=== PATIENT | male | born 1955 | race Two or more races ===

== ENCOUNTER 2024-03-26 14:45 | Outpatient (REF) | payer MEDICAID, SELFPAY ==
--- NOTE | ~2024-03-26 | XR_ITS ---
EXAMINATION: XR ANKLE, LEFT CLINICAL INFORMATION: Injury left ankle COMPARISON: None available. TECHNIQUE: 4 views of the left ankle. FINDINGS: Lateral ankle soft tissue swelling. There are lucencies, with bony irregularity and cortical offset of the lateral malleolus, suspicious for a mildly displaced fracture. No fracture of the distal tibia. Ankle mortise appears within normal limits. Anterior calcaneal process, fifth metatarsal base appears intact. Tibiotalar joint effusion present. XR/XR ankle LT min 3V IMPRESSION: Mildly displaced lateral malleolar fracture. Tibiotalar joint effusion. Lateral ankle soft tissue swelling.
== END 2024-03-26 14:46 | disposition home or self-care (01) ==
LOC: HO.HHCX 14:45
PROVIDERS: Visit Provider Nurse Practitioner Family
DX: S99.912A Unspecified injury of left ankle, initial encounter (principal)
CPT/HCPCS: 73610

== ENCOUNTER 2024-05-12 12:01 | Outpatient (REF) | payer MEDICAID, SELFPAY | END 2024-05-12 12:02 | disposition home or self-care (01) | LOC: HO.HOSX 12:01 | PROVIDERS: Visit Provider Physician Assistant | DX: Z13.89 Encounter for screening for other disorder (principal) ==

== ENCOUNTER 2024-07-01 13:12 | Outpatient (REF) | payer MEDICAID, SELFPAY ==
[2024-07-04 09:39] LABS: TS Negative Control Passed; TS Panel A 67; TS Panel B 208; TS Positive Control Passed; TSpotTB Positive (Negative)
== END 2024-07-01 13:13 | disposition home or self-care (01) ==
LOC: HO.HHCL 13:12
PROVIDERS: Visit Provider Internal Medicine
DX: Z00.00 Encounter for general adult medical examination without abnormal findings (principal)
CPT/HCPCS: 36415; 86481

== ENCOUNTER 2024-07-04 12:53 | Outpatient (REF) | payer MEDICAID, SELFPAY ==
[2024-07-04 16:21] LABS: MANUAL DIFF FLAG NO
[2024-07-04 16:39] LABS: Basophils Absolute Auto 0.1 X10*3/uL (0.0-0.2); Basophils Percent Auto 0.9 % (0-2); Eosinophils Absolute Auto 0.3 X10*3/uL (0.0-0.4); Eosinophils Percent Auto 3.4 % (0-4); Hemoglobin 13.2 g/dl (14.0-18.0); Imm Gran Abs Auto 0.01 X10*3/uL (0.00-0.03); Imm Gran Pct Auto 0.1 % (0.0-0.4); Lymphocytes Absolute Auto 1.6 X10*3/uL (1.2-4.9); Mean Corpuscular HGB Conc 31.4 g/dl (31.0-36.0); Mean Corpuscular Hemoglobin 28.8 pg (27.0-33.0); Mean Corpuscular Volume 91.5 fL (80.0-98.0); Mean Platelet Volume 10.8 fL (9.4-12.4); Monocytes Absolute Auto 0.7 X10*3/uL (0.1-1.2); Monocytes Percent Auto 9.9 % (2-11); Neutrophils Absolute Auto 4.8 x10*3/uL (2.0-8.3); Neutrophils Percent Auto 64.7 % (45-73); Platelet Count 226 X10*3/uL (160-400); Red Blood Count 4.59 X10*6/uL (4.60-5.80); Red Cell Distribution Width 14.6 % (11.0-16.0); White Blood Count 7.4 X10*3/uL (4.8-10.8)
[2024-07-04 17:23] LABS: Alanine Aminotransferase 13 U/L (0-40); Albumin Level 3.7 g/dL (3.5-5.0); Alkaline Phosphatase 83 U/L (39-117); Anion Gap 13 (12-20); Aspartate Amino Transferase 17 U/L (5-37); Bilirubin Total 0.3 mg/dL (0.0-1.0); Blood Urea Nitrogen 12 mg/dL (9-16); Calcium 9.2 mg/dL (8.4-10.2); Carbon Dioxide 24 mmol/L (22-29); Chloride 107 mmol/L (96-108); Cholesterol 230 mg/dL (<200); Estimated Glomerular Filt Rate > 60; Glucose Random 79 mg/dL (60-115); HDL Cholesterol 49 mg/dL (>40); LDL Cholesterol Calculated 157 mg/dL (<100); Potassium 4.3 mmol/L (3.3-5.1); Sodium 140 mmol/L (135-145); Total Protein 7.2 g/dL (6.5-8.0); Triglycerides 124 mg/dL (<150)
[2024-07-04 17:32] LABS: TSH reflex Free T4 0.53 uIU/mL (0.32-4.0); Vitamin D 25-OH Total 27.4 ng/mL (>30)
[2024-07-04 18:10] LABS: Reflex LDLD? No
[2024-07-04 18:12] LABS: Syphilis Screen Reactive (Nonreactive)
[2024-07-04 18:22] LABS: HBc Num1 5.99 S/CO (0.00-0.79); HBsAGNum1 0.29 S/CO (0.00-0.99); HIV AB/AG Nonreactive (Nonreactive); HIV Num 1 0.05 S/CO (0.00-0.99); Hepatitis A Antibody IgM 0.14 Index (0-0.79); Hepatitis B Surface Antigen Negative (Negative); ~HepC Num1 0.18 S/CO (0.00-0.79); ~Hepatitis A Antibody IgM Nonreactive (Nonreactive); ~Hepatitis B Surface Antibody REACTIVE (Nonreactive); ~Hepatitis C Antibody Nonreactive (Nonreactive)
[2024-07-07 04:09] LABS: HBc Num2 5.75 S/CO; HBc Num3 5.93 S/CO; Hepatitis B Core Antibody Reactive (Nonreactive)
[2024-07-07 15:19] LABS: Rubella IgG Antibody 5.19 Index
[2024-07-11 11:55] LABS: RPR Quantitative Reactive 1:2 (Nonreactive); T.Pallidum Particle Agg Test Reactive (Nonreactive)
== END 2024-07-04 12:54 | disposition home or self-care (01) ==
LOC: HO.HHCL 12:53
PROVIDERS: Visit Provider Internal Medicine
DX: Z00.00 Encounter for general adult medical examination without abnormal findings (principal); I10 Essential (primary) hypertension
CPT/HCPCS: 36415; 80053; 80061; 82306; 84443; 85025; 86592; 86704; 86706; 86709; 86735; 86762; 86765; 86780; 86803; 87340; 87389

== ENCOUNTER 2024-07-17 13:45 | Outpatient (REF) | payer MEDICAID, SELFPAY ==
--- NOTE | ~2024-07-17 | XR_ITS ---
EXAMINATION: XR CHEST CLINICAL INFORMATION: Positive TB test, asymptomatic COMPARISON: None available. TECHNIQUE: 2 views of the chest were obtained. FINDINGS: The aorta is ectatic and unfolded. There is an old healed fracture of the right posterior fourth rib. Otherwise, no significant abnormality is noted involving the heart, lungs, mediastinum, bony thorax or soft tissues. XR/XR chest 2V IMPRESSION: No evidence of active pulmonary disease. Electronically signed by: Aba Pierce MD 07/17/2024 03:02 PM EDT RP
== END 2024-07-17 13:46 | disposition home or self-care (01) ==
LOC: HO.HHCX 13:45
PROVIDERS: Visit Provider Internal Medicine
DX: R76.11 Nonspecific reaction to tuberculin skin test without active tuberculosis (principal)
CPT/HCPCS: 71046

== ENCOUNTER 2024-12-09 15:26 | Outpatient (REF) | payer MEDICAID, SELFPAY ==
--- NOTE | ~2024-12-09 | XR_ITS ---
EXAMINATION: XR KNEE, LEFT CLINICAL INFORMATION: sp fall/knee edema/pain COMPARISON: None available. TECHNIQUE: Four views of the left knee. FINDINGS: No fracture, dislocation, or suspicious bone lesion. Normal bone mineralization. Normal alignment. There is chondrocalcinosis in the joint compartments. Findings suggest CPPD. There is moderate medial and mild lateral and patellofemoral joint space narrowing, with marginal productive osteophytes. There is irregularity and sclerosis of the articular surface of the femoral condyles and medial tibial plateau. There is spurring of the tibial spines. There are productive posterior osteophytes and possible loose bodies in the posterior joint space. Large suprapatellar joint effusion. Soft tissues appear normal. XR/XR knee LT 4V IMPRESSION: 1. No acute bony abnormality. 2. 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 Possible posterior loose bodies. 3. Chondrocalcinosis suggesting CPPD. 4. Large joint effusion. Electronically signed by: Jorge Carney MD 12/09/2024 04:19 PM [facility]IGGINS
--- OUTSIDE RECORDS SUMMARY | 2024-12-09 19:14 | XMS_ITS | Encounter Summary ---
Author Organization [employer] Address [address] [place] [address] [address] [place] [address] Care Team Providers Care Director External Communications Name Role Phone Marta Johnson MD Primary Care Provider + Encounter Details Date Type Department Care Team (Late st Contact Info) Description 03/28/2024 Orders Only [facility] [address] [place], [place] [phone] Greer Chiang FNP [address] [place], [place] [phone] Social History Tobacco Use Types Packs/Day Years Used Date Smoking Tobacco: Never Smokeless Tobacco: Never Sex and Gender Information Value Date Recorded Sex Assigned at Male 01/09/2024 3:57 PM EDT Legal Sex Male 3:36 PM EST Gender Identity Male 01/09/2024 3:57 PM EDT Sexual Orientation Straight 01/09/2024 3: 57 PM EDT documented as of this encounter Plan of Treatment Not on file documented as of this encounter Visit Diagnoses Not on filedocumented in this encounter Care Teams Director External Communications Relationship Specialty Start Date End Date Marta Johnson MD [address] [place] [address] PCP - General Internal Medicine 06/27/24 documented as of this encounter
--- OUTSIDE RECORDS SUMMARY | 2024-12-09 19:14 | XMS_ITS | Encounter Summary ---
Author Organization [employer] Address [address] [facility] [address] [place] [address] Care Team Providers Care [employer] Name Role Phone Marta Johnson MD Primary Care Provider + Encounter Details Date Type Department Care Team (Late st Contact Info) Description 11/26/2024 Telephone [facility] [address] [place], [place] [phone] Marta Johnson MD [address] [place], [place] [phone] Social History Tobacco Use Types Packs/Day Years Used Date Smoking Tobacco: Every Day Cigarettes Passive Smoke Exposure: Never Smokeless Tobacco: Never Alcohol Use Standard Drinks/Week Comments Yes 0 (1 standard drink = 0.6 oz pur e alcohol) oca Depression Answer Date Recorded Patient Health Questionnaire-9 Score 18 09/10/2024 Patient Health Questionnaire-9 Score 18 09/10/2024 Last PHQ-9: Questionnaire Data Not on file 1 11/10/2023 Depression Answer Date Recorded Patient Health Questionnaire-2 Score 6 09/10/2024 Sex and Gender Information Value Date Recorded Sex Assigned at Male 01/09/2024 3:57 PM EDT Legal Sex Male 3:36 PM EST Gender Identity Male 01/09/2024 3:57 PM EDT Sexual Orientation Straight 01/09/2024 3: 57 PM EDT documented as of this encounter Miscellaneous Notes * Telephone Encounter - Chantelle Cerda RN - 11/26/2024 9:20 AM EST Tc to pt to let them know per PCP CT scan of abdomen and pelvis on 11/16/2024 during hospitalization for CHF, showed 5 cm infrarenal AAA, he was referred to vascular surgery. Please call patient and make sure that he has cardiology and vascular surgery referral information and make sure that he follows up with me later this month. . No answer, lvm to return call and ask to speak to red team nurses. * Telephone Encounter - Chantelle Cerda RN - 11/26/2024 9:20 AM EST ----- Message from Marta Johnson MD sent at 11/25/2024 3:37 PM EST ----- CT scan of abdomen and pelvis on 11/16/2024 during hospitalization for CHF, showed 5 cm infrarenal AAA, he was referred to vascular surgery. Please call patient and make sure that he has cardiology andvascular surgery referral information and make sure that he follows up with me later this month. documented in this encounter Plan of Treatment Not on file documented as of this encounter Visit Diagnoses Not on filedocumented in this encounter Additional Health Concerns Assessment Noted Time PHQ-9 Depression Total Score: 18 024 3:07 PM EST documented as of this encounter Care Teams [employer] Relationship Specialty Start Date End Date Marta Johnson MD [address] [place] [id number] PCP - General Internal Medicine 06/27/24 documented as of this encounter
--- OUTSIDE RECORDS SUMMARY | 2024-12-09 19:14 | XMS_ITS | Clinical Summary ---
Author Organization [facility] Address [address] [place] [address] Phone Care Team Providers Care Sanitation Laborer Name Role Phone Marta Johnson MD Primary Care Provider [phone] Allergies No known active allergies Medications losartan (COZAAR) 25 mg tablet Take 1 tablet (25 mg total) by mouth 1 (one) time each day. 30 each 11/18/2024 5 Active furosemide (LASIX) 20 mg tablet Take 1 tablet (20 mg total) by mouth 1 (one) time each day. 30 each 11/17/2024 5 Active aspirin 81 mg EC tablet Take 1 tablet (81 mg total) by mouth 1 (one) time each day. 30 tablet 11/17/2024 5 Active Active Problems Problem Noted Date Diagnosed Date New onset of congestive heart failure 11/16/2024 Encounters Date Type Department Care Team Description 11/16/2024 4:01 AM EST - 11/17/2024 5:23 PM EST Hospital Encounter [facility] [address] [place] [address] Felix Rhodes MD Bukalo, Nermina, MD Kokosadze, Estate, MD New onset of congestive heart failure (CMS/HCC) (Primary Dx); Bilateral leg edema Discharge Disposition: Home or Self Care from Last 3 Months Medical History Medical History Date Comments Hypertension Social History Tobacco Use Types Packs/Day Years Used Date Smoking Tobacco: Every Day Cigarettes Tobacco Cessation:Ready to Q uit: Not Asked; Counseling Given: Not Answered Interpersonal Safety Answer Date Record ed Physical Abuse 11/16/2024 Verbal Abuse 11/16/2024 Sex and Gender Information Value Date Recorded Sex Assigned at Male 11/17/2024 5:01 PM EST Legal Sex Male 2:31 AM EST Gender Identity Male 11/17/2024 5:01 PM EST Sexual Orientation Straight 11/17/2024 5: 01 PM EST Obstetrics History Last Filed Vital Signs Vital Sign Reading Time Taken Comments Blood Pressure 143/96 11/17/2024 5:00 PM EST Pulse 91 11/17/2024 5:00 PM EST Temperature 36.2 ??C (97.2 ??F) 11/17/2024 5:00 PM ES T Respiratory Rate 19 11/17/2024 5:00 PM EST Oxygen Saturation 94% 11/17/2024 5:00 PM EST Inhaled Oxygen Concentration - - Weight 81.2 kg (179 lb 0.2 oz) 11/17/2024 2:14 P M EST Height 185.4 cm (6' 0.99 ) 11/17/2024 2:14 PM ES T Body Mass Index 23.62 11/17/2024 2:14 PM EST Plan of Treatment Upcoming Encounters Date Type Department Care Team (Late st Contact Info) Description 01/21/2025 2:00 PM EDT Office Visit Vascular Surgery - [place] [address] [facility] [address] [place] [id number] Garima Munoz PA [address] [facility] [address] [place] [address] Health Maintenance Due Date Last Done Comments DTaP,Tdap,and Td Vaccines (1 - Tdap) 1973 Pneumococcal Vaccine: 50+ Years (1 of 2 - PCV) 1973 Zoster Vaccines (1 of 2) 2004 RSV Immunization Patients 60 + Years Old (1 - Risk 60-74 years 1-dose series) 2014 COVID-19 Vaccine ( - 2023-2 5 season) 2024 Influenza Vaccine (#1) 2024 Cholesterol Screening (Lipid Panel) 11/16/2024 Colorectal Cancer Screening: Colonoscopy 11/16/2024 Depression Screening 11/16/2024 Hepatitis C Screening 11/16/2024 Social Influencers of Health Screening 11/16/2024 Falls Risk Assessment 11/17/2025 11/17/2024 Hypertension/CHF/CAD Annual BMP Blood Test 11/17/2025 11/17/2024, 11/16/2024 HIB Vaccines Aged Out No longer eligi ble based on patient's age to complete this topic HPV Vaccines Aged Out No longer eligi ble based on patient's age to complete this topic Hepatitis A Vaccines Aged Out No long er eligible based on patient's age to complete this topic Hepatitis B Vaccines Aged Out No long er eligible based on patient's age to complete this topic IPV Vaccines Aged Out No longer eligi ble based on patient's age to complete this topic MMR Vaccines Aged Out No longer eligi ble based on patient's age to complete this topic Meningococcal ACWY Vaccine Aged Out N o longer eligible based on patient's age to complete this topic Meningococcal B Vacine Aged Out No lo nger eligible based on patient's age to complete this topic RSV Immunization Patients Under 20 months Aged Out No longer eligible b ased on patient's age to complete this topic Varicella Vaccines Aged Out No longer eligible based on patient's age to complete this topic Procedures Procedure Name Priority Date/Time Associated Diagnosis Comments TRANSTHORACIC ECHOCARDIOGRAM (TTE) COMPLETE Routine 11/17/2024 2:14 PM EST New onset of congestive heart failure (CMS/HCC) RESPIRATORY VIRUS PANEL MOLECULAR STUDY Routine 11/17/2024 9:50 AM EST COMPLETE BLOOD COUNT Routine 11/17/2024 6:17 AM EST BASIC METABOLIC PANEL Routine 11/17/2024 6:17 AM EST TROPONIN I HIGH SENSITIVITY STAT 11/16/2024 11:00 AM EST ECG 12-LEAD STAT 11/16/2024 10:28 AM EST VAS US DUPLEX LOWER EXT VENOUS BILAT STAT 11/16/2024 8:01 AM EST Bilateral leg edema CT ABDOMEN PELVIS W CONTRAST STAT 11/16/2024 6:58 AM EST XR CHEST 2 VIEWS STAT 11/16/2024 6:44 AM EST TROPONIN I HIGH SENSITIVITY STAT 11/16/2024 5:32 AM EST CBC WITH AUTO DIFFERENTIAL STAT 11/16/2024 3:23 AM EST B-TYPE NATRIURETIC PEPTIDE STAT 11/16/2024 3:23 AM EST BASIC METABOLIC PANEL STAT 11/16/2024 3:23 AM EST CBC AND DIFFERENTIAL STAT 11/16/2024 3:23 AM EST ECG ANNOTATED 11/16/2024 from Last 3 Months Results * (ABNORMAL) TRANSTHORACIC ECHOCARDIOGRAM (TTE) COMPLETE (11/17/2024 2:14 PM EST) LV EDV (A2C) 157 mL CV PACS LV EDV (A4C) 129 mL CV PACS LV Diastolic Volume (BP) 143 62 - 150 mL CV PACS LV ESV (A2C) 54 mL CV PACS LV ESV (A4C) 60 mL CV PACS LV Systolic Volume (BP) 57 21 - 61 mL CV PACS IVSD 1.2(A) 0.6 - 1.0 cm CV PACS LVIDD 4.9 4.2 - 5.8 cm CV PACS LVIDS 3.4 2.5 - 4.0 cm CV PACS LVOT Diameter 2.2 cm CV PACS LVPWD 1.1(A) 0.6 - 1.0 cm CV PACS MV E' Tissue Velocity Lateral 11 cm/s CV PACS MV E' Tissue Velocity Septal 6 cm/s CV PACS GLS -14.7 % CV PACS Ejection Fraction (A2C) 66 % CV PACS Ejection Fraction (A4C) 54 % CV PACS Ejection Fraction (BP) 60 % CV PACS LVOT Area 3.8 cm2 CV PACS Left Atrium Minor Benedict 5.6 cm CV PACS Left Atrium Major Benedict 5.9 cm CV PACS LA Area Sys (A2C) 23 cm2 CV PACS LA Area Sys (A4C) 24 cm2 CV PACS LA Volume (BP) 81 mL CV PACS RA Area 20.1 cm2 CV PACS RA 2D Volume 65 mL CV PACS Aortic Sinus Valsalva 3.3 cm CV PACS Ascending Aorta 3.9 cm CV PACS E Wave Deceleration Time 190 119 - 242 ms CV PACS MV Peak A Vlad 0.54 m/s CV PACS MV Peak E Vlad 0.62 m/s CV PACS PV Acceleration Time 92 ms CV PACS RV Diastolic Basal Dimension 3.6 2.5 - 4.1 cm CV PACS RV S' 11 cm/s CV PACS TAPSE 18 mm CV PACS TR Peak Velocity 2.84 m/s CV PACS TR Peak Gradient 32 mmHg CV PACS LV ESV Index (A4C) 29 mL/m2 CV PACS LV EDV Index (A4C) 63 mL/m2 CV PACS E/E' Ratio Septal 10 CV PACS E/E' Ratio Averaged 8 CV PACS Relative Wall Thickness ratio 0.45 CV PACS FS 31 % CV PACS LV Mass 2D 213 g CV PACS Ascending Aorta Index 1.90 cm/m2 CV PACS RA 2D Volume Index 32 mL/m2 CV PACS LVIDD Index 2.39 cm/m2 CV PACS LVIDS Index 1.66 cm/m2 CV PACS E/A Ratio 1.1 CV PACS E/E' Ratio Lateral 6 CV PACS LV Systolic Volume Index (BP) 28 mL/m2 CV PACS LV Diastolic Volume Index (BP) 70 mL/m2 CV PACS LA Volume Index (BP) 40 mL/m2 CV PACS LV Mass Index 2D 104 g/m2 CV PACS LV EDV Index (A2C) 77 mL/m2 CV PACS LV ESV Index (A2C) 26 mL/m2 CV PACS BSA 2.04 m2 CV PACS Right Ventricular Peak Systolic Pressure 35 mmHg CV PACS Est. RA Pressure 3 mmHg CV PACS Anatomical Region Laterality Modality Ultrasound Narrative 11/17/2024 2:55 PM EST ?Left ventricle cavity size is normal.Left ventricle mild hypertrophy. . Very mild global hypokinesis with more specific hypokinesis in the lateral wall. ??Global longitudinal strain is diminished at -14.7% ?Right ventricle cavity is normal. Right ventricular systolic function is normal. ?Tricuspid??Valve: Estimated RA pressure is 3 mmHg. The RVSP is estimated at 35 mmHg. ?Trace aortic insufficiency Left Ventricle Left ventricle cavity size is normal. There is mild hypertrophy. Mild global hypokinesis with more specific hypokinesis in the lateral wall. EF is mildly reduced. Global longitudinal strain is reduced There is no diastolic dysfunction. Right Ventricle Right ventricle cavity appears normal. Systolic function is normal. Left Atrium Left atrium cavity is mildly dilated. Right Atrium Right atrium cavity is normal. Mitral Valve The leaflets are mildly thickened. There is trace regurgitation. There is no evidence of mitral valve stenosis. Tricuspid Valve The leaflets exhibit normal excursion. There is trace regurgitation. There is no evidence of tricuspid valve stenosis. Estimated RA pressure is 3 mmHg. The RVSP is estimated at 35 mmHg. Aortic Valve The aortic valve is trileaflet. There is trace regurgitation. There is no evidence of aortic valve stenosis. Pulmonic Valve Visualized portions of the pulmonic valve appear normal. There is no regurgitation or stenosis. Ascending Aorta The aorta appears normal in size. Pericardium Pericardium appears normal. There is no pericardial effusion. Study Details Overall the study quality was adequate. Additional technique includes myocardial strain. Ivy Calvin MD CV ECHO PROCEDURES Final Resul t * Respiratory virus panel molecular study (11/17/2024 9:50 AM EST) Adenovirus Detection by PCR Not Detected Not Detected LAB MICROBIOLOGY METHOD 11/17/2024 1:46 PM [facility] Influenza A PCR Not Detected Not Detected LAB MICROBIOLOGY METHOD 11/17/2024 1:46 PM [facility] Influenza B PCR Not Detected Not Detected LAB MICROBIOLOGY METHOD 11/17/2024 1:46 PM [facility] Coronavirus 229E Not Detected Not Detected LAB MICROBIOLOGY METHOD 11/17/2024 1:46 PM [facility] Coronavirus HKU1 Not Detected Not Detected LAB MICROBIOLOGY METHOD 11/17/2024 1:46 PM [facility] Coronavirus OC43 Not Detected Not Detected LAB MICROBIOLOGY METHOD 11/17/2024 1:46 PM [facility] Coronavirus NL63 Not Detected Not Detected LAB MICROBIOLOGY METHOD 11/17/2024 1:46 PM [facility] Parainfluenza Virus 1 Not Detected Not Detected LAB MICROBIOLOGY METHOD 11/17/2024 1:46 PM [facility] Parainfluenza Virus 2 Not Detected Not Detected LAB MICROBIOLOGY METHOD 11/17/2024 1:46 PM [facility] Parainfluenza Virus 3 Not Detected Not Detected LAB MICROBIOLOGY METHOD 11/17/2024 1:46 PM [facility] Parainfluenza Virus 4 Not Detected Not Detected LAB MICROBIOLOGY METHOD 11/17/2024 1:46 PM [facility] RSV PCR Not Detected Not Detected LAB MICROBIOLOGY METHOD 11/17/2024 1:46 PM [facility] Human Metapneumovirus A and B Not Detected Not Detected LAB MICROBIOLOGY METHOD 11/17/2024 1:46 PM [facility] Rhinovirus/Entero virus Not Detected Not Detected LAB MICROBIOLOGY METHOD 11/17/2024 1:46 PM [facility] Bordetella pertussis Not Detected Not Detected LAB MICROBIOLOGY METHOD 11/17/2024 1:46 PM [facility] Bordetella parapertussis Not Detected Not Detected LAB MICROBIOLOGY METHOD 11/17/2024 1:46 PM [facility] Mycoplasma pneumo by PCR Not Detected Not Detected LAB MICROBIOLOGY METHOD 11/17/2024 1:46 PM [facility] Chlamydia pneumoniae Not Detected Not Detected LAB MICROBIOLOGY METHOD 11/17/2024 1:46 PM [facility] SARS COV-2 Not Detected Not Detected LAB MICROBIOLOGY METHOD 11/17/2024 1:46 PM [facility] Swab Nasopharyngeal structure / Unknown Non-blood Collection / Unknown 11/17/2024 9:50 AM EST 11/17/2024 11:42 AM EST [facility] - 11/17/2024 1:46 PM EST Testing was performed using the [employer] Respiratory Pathogen PCR Assay. All results must be correlated with the clinical findings. Results should not be used as the sole basis for diagnosis. False Negative results may occur from the presence of sequence variants in the region targeted by the assay or the presence of inhibitors. Results may be affected by concurrent antiviral/antimicrobial therapy or levels of organisms that are below the limit of detection. Kasey RICH LAB MICROBIOLOGY - GENERAL ORDERABLES Final Result [facility] [address] [place] [address], * (ABNORMAL) Complete blood count (11/17/2024 6:17 AM EST) WBC 9.1 4.8 - 10.8 K/mcL LAB HEMETOLOGY METHOD 11/17/2024 7:39 AM [facility] RBC 4.30(L) 4.50 - 5.50 M/mcL LAB HEMETOLOGY METHOD 11/17/2024 7:39 AM [facility] Hemoglobin 12.4(L) 13.5 - 17.5 g/dL LAB HEMETOLOGY METHOD 11/17/2024 7:39 AM [facility] Hematocrit 39.5(L) 42.0 - 54.0 % LAB HEMETOLOGY METHOD 11/17/2024 7:39 AM [facility] MCV 91.4 79.0 - 98.0 FL LAB HEMETOLOGY METHOD 11/17/2024 7:39 AM [facility] MCH 28.7 27.0 - 32.0 pcg LAB HEMETOLOGY METHOD 11/17/2024 7:39 AM [facility] MCHC 31.4(L) 32.0 - 37.0 g/dL LAB HEMETOLOGY METHOD 11/17/2024 7:39 AM EST [facility] RDW 13.2 11.0 - 15.0 % LAB HEMETOLOGY METHOD 11/17/2024 7:39 AM EST [facility] Platelets 249 130 - 400 K/mcL LAB HEMETOLOGY METHOD 11/17/2024 7:39 AM [facility] MPV 10.6 7.0 - 11.0 FL LAB HEMETOLOGY METHOD 11/17/2024 7:39 AM EST [facility] NRBC 0.0 <1.0 % LAB HEMETOLOGY METHOD 11/17/2024 7:39 AM [facility] NRBC Absolute 0.00 <0.10 K/mcL LAB HEMETOLOGY METHOD 11/17/2024 7:39 AM [facility] Blood Venous blood specimen / Unknown Venipuncture / Unknown 11/17/2024 6:17 AM EST 11/17/2024 7:01 AM EST us Ivy Calvin MD LAB BLOOD ORDERABLES Final Res ult [facility] [address] [place] [address], [place] [phone] * (ABNORMAL) Basic metabolic panel (11/17/2024 6:17 AM EST) Only the most recent of2 resultswithin the time period is included. Sodium 135 133 - 145 mmol/L LAB CHEMISTRY METHOD 11/17/2024 8:19 AM [facility] Potassium 4.0 3.5 - 5.5 mmol/L LAB CHEMISTRY METHOD 11/17/2024 8:19 AM [facility] Chloride 102 96 - 110 mmol/L LAB CHEMISTRY METHOD 11/17/2024 8:19 AM EST [facility] CO2 29 21 - 32 mmol/L LAB CHEMISTRY METHOD 11/17/2024 8:19 AM [facility] Anion Gap 4 3 - 11 LAB CHEMISTRY METHOD 11/17/2024 8:19 AM [facility] Glucose 102(H) 70 - 100 mg/dL LAB CHEMISTRY METHOD 11/17/2024 8:19 AM [facility] BUN 13 5 - 25 mg/dL LAB CHEMISTRY METHOD 11/17/2024 8:19 AM [facility] Creatinine 0.84 0.70 - 1.30 mg/dL LAB CHEMISTRY METHOD 11/17/2024 8:19 AM [facility] eGFR 94 >=60 mL/min/1. 73m2 LAB CHEMISTRY METHOD 11/17/2024 8:19 AM [facility] Comment:Calculation based on the??Chronic Kidney Disease Epidemiology Collaboration (CKD-EPI) equation refit??without adjustment for race. BUN/Creatinine Ratio 15.5 LAB CHEMISTRY METHOD 11/17/2024 8:19 AM [facility] Calcium 9.3 8.5 - 10.5 mg/dL LAB CHEMISTRY METHOD 11/17/2024 8:19 AM [facility] Blood Venous blood specimen / Unknown Venipuncture / Unknown 11/17/2024 6:17 AM EST 11/17/2024 7:05 AM EST us Ivy Calvin MD LAB BLOOD ORDERABLES Final Res ult [facility] [address] [place] [address], * Troponin I high sensitivity (11/16/2024 11:00 AM EST) Only the most recent of2 resultswithin the time period is included. High Sensitivity Troponin I 31 <=79 ng/L LAB CHEMISTRY METHOD 11/16/2024 11:31 AM [facility] Blood Venous blood specimen / Unknown Venipuncture / Unknown 11/16/2024 11:00 AM EST 11/16/2024 11:02 AM EST [facility]ative [facility] - 11/16/2024 11:31 AM EST High levels of biotin in samples may falsely decrease hsTroponin values. ??Use caution when interpreting hsTroponin results in patients taking biotin who exhibit renal impairment (eGFR <60) or in patients taking more than 20 mg/day of biotin. Ivy Calvin MD LAB BLOOD ORDERABLES Final Res ult Performing Organization Address [facility] Co de Phone Number [facility] ([facility]) [facility] [address] [place] [address], [place] [phone] * ECG 12 lead (11/16/2024 10:28 AM EST) Ventricular Rate ECG 89 BPM GEMUSE Atrial Rate 89 BPM GEMUSE P-R Interval 196 ms GEMUSE QRS Duration 86 ms GEMUSE Q-T Interval 388 ms GEMUSE QTc 472 ms GEMUSE P Wave Benedict 68 degrees GEMUSE R Benedict 61 degrees GEMUSE T Benedict 40 degrees GEMUSE ECG Interpretation Normal sinus rhythm No previous ECGs available Confirmed by CASE FERNANDES ([id number]) on 11/17/2024 5:17:04 AM GEMUSE 11/16/2024 10:2 8 AM EST 11/17/2024 5:17 AM EST us Luis RICH ECG ORDERABLES Final Res ult Performing Organization Address [facility] Co de Phone Number GEMUSE * Vascular US duplex lower extremity venous bilateral (11/16/2024 8:01 AM EST) Anatomical Region Laterality Modality Vascular, Abdomen Ultrasound 11/16/2024 8:33 AM EST Impressions 11/16/2024 8:34 AM EST No deep venous thrombosis of either lower extremity. -------- FINAL REPORT -------- Dictated By: Yasir Vasquez Dictated Date: 11/16/2024 08:33 ET Assigned Physician: Yasir Vasquez Reviewed and Electronically Signed By: Yasir Vasquez Signed Date: 11/16/2024 08:34 ET Workstation ID: [id number] Transcribed By: Self Edit Transcribed Date: 11/16/2024 08:33 ET Narrative 11/16/2024 8:34 AM EST PROCEDURE: Bilateral lower extremity deep vein thrombosis study. HISTORY: edema. COMPARISON: None. TECHNIQUE: Grayscale, color Doppler, and spectral Doppler ultrasound evaluation of the deep venous structures of the lower extremities. ??Augmentation and compression maneuvers were performed. FINDINGS: The deep venous structures of the lower extremities demonstrate normal compressibility with normal color and spectral Doppler flow and a normal response to augmentation maneuvers. Procedure Note Yasir Vasquez MD - 11/16/2024 PROCEDURE: Bilateral lower extremity deep vein thrombosis study. HISTORY: edema. COMPARISON: None. TECHNIQUE: Grayscale, color Doppler, and spectral Doppler ultrasoundevaluation of the deep venous structures of the lower extremities.Augmentation and compression maneuvers were performed. FINDINGS: The deep venous structures of the lower extremities demonstrate normalcompressibility with normal color and spectral Doppler flow and a normalresponse to augmentation maneuvers. IMPRESSION: No deep venous thrombosis of either lower extremity. -------- FINAL REPORT -------- Dictated By: Yasir Vasquez Dictated Date: 11/16/2024 08:33 ET Assigned Physician: Yasir Vasquez Reviewed and Electronically Signed By: Yasir Vasquez Signed Date: 11/16/2024 08:34 ET Workstation ID: [id number] Transcribed By: Self Edit Transcribed Date: 11/16/2024 08:33 ET us Felix Rhodes MD CV VASCULAR PROCEDURES Final Re sult * CT Abdomen Pelvis w Contrast (11/16/2024 6:58 AM EST) Anatomical Region Laterality Modality Body Computed Tomogra phy 11/16/2024 8:20 AM EST Impressions 11/16/2024 8:27 AM EST 1. ??Interstitial pulmonary edema and trace right larger than left pleural effusions. 2. ??No acute intra-abdominal findings. 3. ??5 cm fusiform infrarenal abdominal aortic aneurysm. -------- FINAL REPORT -------- Dictated By: Yasir Vasquez Dictated Date: 11/16/2024 08:20 ET Assigned Physician: Yasir Vasquez Reviewed and Electronically Signed By: Yasir Vasquez Signed Date: 11/16/2024 08:27 ET Workstation ID: [id number] Transcribed By: Self Edit Transcribed Date: 11/16/2024 08:21 ET Narrative 11/16/2024 8:27 AM EST PROCEDURE: Contrast enhanced CT of the abdomen and pelvis. ?? HISTORY: Abdominal pain, acute, nonlocalized. COMPARISON: None. TECHNIQUE: Contrast-enhanced CT of the abdomen and pelvis with coronal and sagittal reformats. IV contrast dose: 90 mL ISOVUE-370. Dose length product: ??993 mGy-cm. FINDINGS: Lung bases: Trace right greater than left pleural effusions and interstitial edema. Cardiac: Mild cardiomegaly. ??Mild coronary artery calcification. Liver: No focal lesion. ??Portal veins are suboptimally opacified but appear grossly patent Biliary: Cholecystectomy. ??Prominence of the common duct, as is often seen in this setting secondary to a reservoir effect. Pancreas: Normal. Spleen: Normal. Adrenal glands: Normal. Kidneys: Normal. ??Normal appearance of the ureters. Retroperitoneum: No mass or adenopathy. Abdominal vasculature: Moderate multifocal atherosclerotic plaque. ??Fusiform dilatation of the infrarenal aorta, measuring up to 5 cm AP, with moderate mural thrombus. ??Ectasia of the common iliac arteries. Bowel/mesentery: No obstruction or adenopathy. ??No mass or ascites. ??Normal appendix. Abdominal wall: Small fat-containing paraumbilical hernia. ??Small venous varicosities in the right inguinal region. Pelvic nodes: No adenopathy. Pelvic organs: Underdistention limits evaluation of the urinary bladder, but there is suggestion of circumferential mural thickening. Bones: Degenerative changes of the spine and hips. Procedure Note Yasir Vasquez MD - 11/16/2024 PROCEDURE: Contrast enhanced CT of the abdomen and pelvis. HISTORY: Abdominal pain, acute, nonlocalized. COMPARISON: None. TECHNIQUE: Contrast-enhanced CT of the abdomen and pelvis with coronal andsagittal reformats. IV contrast dose: 90 mL ISOVUE-370. Dose length product: 993 mGy-cm. FINDINGS: Lung bases: Trace right greater than left pleural effusions andinterstitial edema. Cardiac: Mild cardiomegaly. Mild coronary artery calcification. Liver: No focal lesion. Portal veins are suboptimally opacified butappear grossly patent Biliary: Cholecystectomy. Prominence of the common duct, as is often seenin this setting secondary to a reservoir effect. Pancreas: Normal. Spleen: Normal. Adrenal glands: Normal. Kidneys: Normal. Normal appearance of the ureters. Retroperitoneum: No mass or adenopathy. Abdominal vasculature: Moderate multifocal atherosclerotic plaque.Fusiform dilatation of the infrarenal aorta, measuring up to 5 cm AP, withmoderate mural thrombus. Ectasia of the common iliac arteries. Bowel/mesentery: No obstruction or adenopathy. No mass or ascites.Normal appendix. Abdominal wall: Small fat-containing paraumbilical hernia. Small venousvaricosities in the right inguinal region. Pelvic nodes: No adenopathy. Pelvic organs: Underdistention limits evaluation of the urinary bladder,but there is suggestion of circumferential mural thickening. Bones: Degenerative changes of the spine and hips. IMPRESSION: 1. Interstitial pulmonary edema and trace right larger than left pleuraleffusions. 2. No acute intra-abdominal findings. 3. 5 cm fusiform infrarenal abdominal aortic aneurysm. -------- FINAL REPORT -------- Dictated By: Yasir Vasquez Dictated Date: 11/16/2024 08:20 ET Assigned Physician: Yasir Vasquez Reviewed and Electronically Signed By: Yasir Vasquez Signed Date: 11/16/2024 08:27 ET Workstation ID: [id number] Transcribed By: Self Edit Transcribed Date: 11/16/2024 08:[address] PROCEDURES Final Result * XR Chest 2 Views (11/16/2024 6:44 AM EST) Anatomical Region Laterality Modality Body Radiographic Myra ging 11/16/2024 8:16 AM EST Impressions 11/16/2024 8:21 AM EST Mild cardiomegaly, pulmonary vascular congestion, and interstitial pulmonary edema. -------- FINAL REPORT -------- Dictated By: Yasir Vasquez Dictated Date: 11/16/2024 08:16 ET Assigned Physician: Yasir Vasquez Reviewed and Electronically Signed By: Yasir Vasquez Signed Date: 11/16/2024 08:21 ET Workstation ID: [id number] Transcribed By: Self Edit Transcribed Date: 11/16/2024 08:16 ET Narrative 11/16/2024 8:21 AM EST PROCEDURE: PA and lateral radiographs of the chest. HISTORY: SOB, pulmonary edema suspected. COMPARISON: None. FINDINGS: Pulmonary vascular congestion with interstitial prominence and prominence of the fissures suggestive of interstitial edema. ??Heart is mildly enlarged. ??Tortuous aorta with atherosclerotic calcification. ??No significant pleural effusion. ??No pneumothorax. ??Bones are diffusely demineralized. Procedure Note Yasir Vasquez MD - 11/16/2024 PROCEDURE: PA and lateral radiographs of the chest. HISTORY: SOB, pulmonary edema suspected. COMPARISON: None. FINDINGS: Pulmonary vascular congestion with interstitial prominence and prominenceof the fissures suggestive of interstitial edema. Heart is mildlyenlarged. Tortuous aorta with atherosclerotic calcification. Nosignificant pleural effusion. No pneumothorax. Bones are diffuselydemineralized. IMPRESSION: Mild cardiomegaly, pulmonary vascular congestion, and interstitialpulmonary edema. -------- FINAL REPORT -------- Dictated By: Yasir Vasquez Dictated Date: 11/16/2024 08:16 ET Assigned Physician: Yasir Vasquez Reviewed and Electronically Signed By: Yasir Vasquez Signed Date: 11/16/2024 08:21 ET Workstation ID: [id number] Transcribed By: Self Edit Transcribed Date: 11/16/2024 08:16 ET Felix Rhodes MD IMG XR PROCEDURES Final Result * (ABNORMAL) CBC auto differential (11/16/2024 3:23 AM EST) [facility] WBC 7.6 4.8 - 10.8 K/mcL LAB HEMETOLOGY METHOD 11/16/2024 3:38 AM [facility] RBC 4.30(L) 4.50 - 5.50 M/mcL LAB HEMETOLOGY METHOD 11/16/2024 3:38 AM [facility] Hemoglobin 12.3(L) 13.5 - 17.5 g/dL LAB HEMETOLOGY METHOD 11/16/2024 3:38 AM [facility] Hematocrit 40.2(L) 42.0 - 54.0 % LAB HEMETOLOGY METHOD 11/16/2024 3:38 AM [facility] MCV 93.7 79.0 - 98.0 FL LAB HEMETOLOGY METHOD 11/16/2024 3:38 AM [facility] MCH 28.7 27.0 - 32.0 pcg LAB HEMETOLOGY METHOD 11/16/2024 3:38 AM [facility] MCHC 30.6(L) 32.0 - 37.0 g/dL LAB HEMETOLOGY METHOD 11/16/2024 3:38 AM [facility] RDW 13.2 11.0 - 15.0 % LAB HEMETOLOGY METHOD 11/16/2024 3:38 AM [facility] Platelets 226 130 - 400 K/mcL LAB HEMETOLOGY METHOD 11/16/2024 3:38 AM [facility] MPV 10.1 7.0 - 11.0 FL LAB HEMETOLOGY METHOD 11/16/2024 3:38 AM [facility] NRBC 0.0 <1.0 % LAB HEMETOLOGY METHOD 11/16/2024 3:38 AM [facility] NRBC Absolute 0.00 <0.10 K/mcL LAB HEMETOLOGY METHOD 11/16/2024 3:38 AM [facility] Neutrophils Relative 65.6 % LAB HEMETOLOGY METHOD 11/16/2024 3:38 AM [facility] Lymphocytes Relative 20.6 % LAB HEMETOLOGY METHOD 11/16/2024 3:38 AM [facility] Monocytes Relative 10.0 % LAB HEMETOLOGY METHOD 11/16/2024 3:38 AM [facility] Eosinophils Relative 3.0 % LAB HEMETOLOGY METHOD 11/16/2024 3:38 AM [facility] Basophils Relative 0.5 % LAB HEMETOLOGY METHOD 11/16/2024 3:38 AM [facility] Immature Granulocytes Relative 0.3 % LAB HEMETOLOGY METHOD 11/16/2024 3:38 AM [facility] Neutrophils Absolute 4.98 1.50 - 7.00 K/mcL LAB HEMETOLOGY METHOD 11/16/2024 3:38 AM [facility] Lymphocytes Absolute 1.56 1.00 - 5.00 K/mcL LAB HEMETOLOGY METHOD 11/16/2024 3:38 AM [facility] Monocytes Absolute 0.76 0.20 - 1.00 K/mcL LAB HEMETOLOGY METHOD 11/16/2024 3:38 AM [facility] Eosinophils Absolute 0.23 0.00 - 0.50 K/mcL LAB HEMETOLOGY METHOD 11/16/2024 3:38 AM [facility] Basophils Absolute 0.04 0.00 - 0.20 K/mcL LAB HEMETOLOGY METHOD 11/16/2024 3:38 AM [facility] Immature Granulocytes Absolute 0.02 0.00 - 0.03 K/mcL LAB HEMETOLOGY METHOD 11/16/2024 3:38 AM [facility] Blood Venous blood specimen / Unknown Venipuncture / Unknown 11/16/2024 3:23 AM EST 11/16/2024 3:31 AM EST Felix Rhodes MD LAB BLOOD ORDERABLES Final Resu lt Performing Organization Address [facility]/ZIP Co de Phone Number [facility] [address] [place] [address], [place] [phone] * (ABNORMAL) B-type natriuretic peptide (11/16/2024 3:23 AM EST) BNP 332(H) <=100 pcg/mL LAB CHEMISTRY METHOD 11/16/2024 4:15 AM EST [facility] Blood Venous blood specimen / Unknown Venipuncture / Unknown 11/16/2024 3:23 AM EST 11/16/2024 3:31 AM EST Felix Rhodes MD LAB BLOOD ORDERABLES Final Resu lt Performing Organization Address [facility]/ZIP Co de Phone Number [facility] [address] [place] [address], [place] [phone] * ECG-Annotated (11/16/2024) Provider Onbase ECG ORDERABLES Final Result from Last 3 Months [place] [id number] Advance Directives * Full Code - Default (Latest Code Status on File) Date Activated Date Inactivated Comments 11/16/2024 10:44 AM 11/17/2024 7:28 PM This is order is used when code status has not been discussed with the patient, or code status is otherwise unknown/unconfirmed To update the patient's code status, place a code status order. Do not modify or discontinue any currently active code status orders. Care Teams Sanitation Laborer Relationship Specialty Start Date End Date Marta Johnson MD [address] [place] [phone] PCP - General Internal Medicine 11/17/24
--- OUTSIDE RECORDS SUMMARY | 2024-12-09 19:14 | XMS_ITS | Encounter Summary ---
Author Organization [facility] Address [address] [facility] 7t [place] [address] Care Team Providers Care Finish Mill Operator Name Role Phone Marta Johnson MD Primary Care Provider + Encounter Details Date Type Department Care Team (Late st Contact Info) Description 11/25/2024 Orders Only [facility] [address] [place] [address] Provider, MD Huber Social History Tobacco Use Types Packs/Day Years [...] as of this encounter Miscellaneous Notes * Result Encounter Note - Marta Johnson MD - 11/25/2024 9:[address] scan of abdomen and pelvis on [...] on file documented as of this encounter Procedures Procedure Name Priority Date/Time Associated Diagnosis Comments CT ABDOMEN PELVIS W CONTRAST Routine 11/16/2024 9:28 AM EST documented in this encounter Results * CT Abdomen Pelvis w/ Contrast (11/16/2024 9:28 AM EST) Anatomical Region Laterality Modality Body, Pelvis, Abdomen Computed T omography Historical Provider MD GUNN CT PROCEDURES Final R esult documented in this encounter Visit Diagnoses Not on filedocumented in this encounter Additional Health Concerns Assessment Noted Time PHQ-9 Depression Total Score: 18 09/10/ 024 3:07 PM EST documented as of this encounter Care Teams Finish Mill Operator Relationship Specialty Start Date End Date Marta Johnson MD [address] [place] [phone] PCP - General Internal Medicine 06/27/24 documented as of this encounter
--- OUTSIDE RECORDS SUMMARY | 2024-12-09 19:14 | XMS_ITS | Encounter Summary ---
Author Organization [employer] Address [address] [facility] 7t [place] [address] Care Team Providers Care Manufacturer'S Service Representative Name Role Phone Marta Johnson MD Primary Care Provider + Encounter Details Date Type Department Care Team (Late st Contact Info) Description 11/26/2024 Telephone [facility] [address] [place] [address] Chantelle Cerda, VICTOR HUGO Social History Tobacco Use Types Packs/Day Years [...] Encounter - Chantelle Cerda RN - 11/26/2024 2:58 PM EST Incoming call from pt to let the know per PCP CT scan of abdomen and pelvis on 11/16/2024 during hospitalization for CHF, showed 5 cm infrarenal AAA, he was referred to vascular surgery. Please call patient and make sure that he has cardiology and vascular surgery referral information and make surethat he follows up with me later this month. Pt partner stephenie answers and reports pt has been doing a lot better since being home. Stephenie reports pt is at home sleeping but has been using the bathroom frequently due to being prescribed a water pill. Stephenie reports pt is taking their medication as prescribed and monitoring daily weights. Stephenie reports pt has an scheduled appt with Vascular surgeryon 12/03/24 and pending Cardiology follow up appt but the office reports they will call them back. Stephenie reminded to make sure pt attends scheduled appts especially their HDF with PCP on 12/09/24 and to follow up with Cardiology office if they do not hear anything this Sunday regarding an appt. Stephenieverbalized understanding and no further questions or concerns at this time. * Telephone Encounter - Chantelle Cerda RN - 11/26/2024 2:54 PM EST ----- Message from Marta Johnson MD [...] documented as of this encounter Care Teams Manufacturer'S Service Representative Relationship Specialty Start Date End Date Marta Johnson MD [address] [place] [phone] PCP - General Internal Medicine 06/27/24 documented as of this encounter
--- OUTSIDE RECORDS SUMMARY | 2024-12-09 19:14 | XMS_ITS | Patient Health Record ---
Author Organization [facility] Address [address] [place], [place] [id number] Care Team Providers Care Software Systems Engineer Name Role Phone No, PCP Primary Care Provider [facility] Unavailable [phone] Allergies No Known Allergies Reason For Referral No Information Social History Tobacco Use: Social History Observation Description Date Details (start date - stop date) Current Smoker NA - NA Tobacco Use Assessment MU Question Answer Notes What is your current smoking status? current smo ker How often do you smoke? every day How many cigarettes a day do you smoke? 11-20 How soon after you wake up do you smoke your fir st cigarette? 31-60 minutes Are you interested in quitting? ready to quit Patient counseled on the aditi chauhans of tobacco use and advised to quit: 06/29/2023 Problems Problem Type SNOMED Code ICD Code Onset Dates Problem Status W/U Status Risk Notes Problem Sheltered homelessness (473811546630565 ) Sheltered homelessness (Z59.01) Active confirmed Plan Of Treatment No Information Insurance Providers Payer Name Payer Address Payer Phone Subscriber Number Group Number Insured Name Patient Relationship to Insured Coverage Start Date Coverage End Date [facility] Medical [address] [place] [phone] [id number] [place] Rivasmoriah Meet Self - patient is the insured 3 Medical (General) History Surgical History Surgery Date(Month/Year) hernia repair 2009 cholecystectomy 2009
--- OUTSIDE RECORDS SUMMARY | 2024-12-09 19:14 | XMS_ITS | Encounter Summary ---
Author Organization [employer] Address [address] [place] [address] [address] [place] [address] Care Team Providers Care Marine Firer Name Role Phone Marta Johnson MD Primary Care Provider + Reason for Visit * Reason Onset Date Comments Chart prep 12/03/2024 Encounter Details Date Type Department Care Team (Late st Contact Info) Description 12/03/2024 Telephone [facility] [address] [place], [place] [phone] Marta Johnson MD [address] [place], [place] [phone] Chart prep Social History Tobacco Use Types Packs/Day Years [...] encounter Miscellaneous Notes * Telephone Encounter - Palma Chatterjee MA - 12/03/2024 10:35 AM EST Chart Prep Labs: done Images: done Vaccines due: yes Referrals: complete Screenings: colonoscopy Overdue care gaps: SDOH documented in this encounter Plan of Treatment Not on file documented as of this encounter Visit Diagnoses Not on filedocumented in this encounter Additional Health Concerns Assessment Noted Time PHQ-9 Depression Total Score: 18 09/10/ 024 3:07 PM EST documented as of this encounter Care Teams Marine Firer Relationship Specialty Start Date End Date Marta Johnson MD [address] [place] [phone] PCP - General Internal Medicine 06/27/24 documented as of this encounter
--- OUTSIDE RECORDS SUMMARY | 2024-12-09 19:14 | XMS_ITS | Encounter Summary ---
Author Organization [employer] Address [address] [facility] 7[address] [place] [address] Care Team Providers Care Circuit Board Assembler Name Role Phone Marta Johnson MD Primary Care Provider + Reason for Referral * Consultation (Routine) - Pending Review Specialty Diagnoses / Procedures Referred By Bernie green Referred To Contact Cardiology Diagnoses Systolic congestive heart failure, unspecified HF chronicity (CMS/HCC) Marta Johnson MD [address] [place] [address] Phone: tel: fax: Referral ID Status Reason Start Date Expiration Date Visits Requested Visits Authorized [id number] Pending Review Specialty Services Required 12/09/2024 12/09/2025 1 1 * Consultation (Routine) - Pending Review Specialty Diagnoses / Procedures Referred By Bernie green Referred To Contact Vascular Surgery Diagnoses Infrarenal abdominal aortic aneurysm (AAA) without rupture (CMS/HCC) Varicose veins of both lower extremities with pain Marta Johnson MD [address] [place] [address] Phone: tel: fax: Referral ID Status Reason Start Date Expiration Date Visits Requested Visits Authorized [id number] Pending Review Specialty Services Required 12/09/2024 12/09/2025 1 1 Reason for Visit * Reason Comments Back Pain Encounter Details Date Type Department Care Team ([facility] st Contact Info) Description 12/09/2024 1:45 PM EST Office Visit [facility] [address] [place] [address] Marta Johnson MD [address] [place] [address] Essential hypertension (Primary Dx); Syphilis in male; Systolic congestive heart failure, unspecified HF chronicity (CMS/HCC); Infrarenal abdominal aortic aneurysm (AAA) without rupture (CMS/HCC); Edema of knee; Varicose veins of both lower extremities with pain Social History Tobacco Use Types Packs/Day Years Used Date Smoking Tobacco: Every Day Cigarettes Passive Smoke Exposure: Never Smokeless Tobacco: Never Tobacco Cessation:Ready to Q uit: Not Asked; Counseling Given: Not Answered Alcohol Use Standard Drinks/Week Comments Yes 0 [...] PM EDT documented as of this encounter Last Filed Vital Signs Vital Sign Reading Time Taken Comments Blood Pressure 156/101 12/09/2024 2:04 PM EST Pulse 90 12/09/2024 2:04 PM EST Temperature 35.7 ??C (96.3 ??F) 12/09/2024 2:04 PM ES T Respiratory Rate - - Oxygen Saturation 98% 12/09/2024 2:04 PM EST Inhaled Oxygen Concentration - - Weight 82.8 kg (182 lb 8 oz) 12/09/2024 2:04 PM EST Height 172.7 cm (5' 8 ) 12/09/2024 2:04 PM EST Body Mass Index 27.75 12/09/2024 2:04 PM EST documented in this encounter Miscellaneous Notes * Assessment & Plan Note - Manju Baez - 12/09/2024 4:55 PM ESTAssociated Problem(s): Syphilis in male S/P Penicillin treatment last year in June of 2024, FU titers. Discussed with pt regarding STI prevention, use of condoms, he agreed to referral to STI clinic forPrEP. * Assessment & Plan Note - Manju Baez - 12/09/2024 4:54 PM ESTAssociated Problem(s): Varicose veins of both lower extremities with pain Refer to vascular surgeon. * Assessment & Plan Note - Manju Baez - 12/09/2024 4:54 PM ESTAssociated Problem(s): Edema of knee S/P fall, most likely synovial effusion. Advised to keep leg elevated and put ice to affected area and avoid weight bearing on left side, continue using crutches. Use Tylenol and order XR, will fu after XR results. * Assessment & Plan Note - Manju Baez - 12/09/2024 4:53 PM ESTAssociated Problem(s): Infrarenal abdominal aortic aneurysm (AAA) without rupture (CMS/HCC) Discussed with pt and girlfriend, Tiffanie, to r/s appointment with vascular surgeon Dr. Zelaya. * Assessment & Plan Note - Manju Baez - 12/09/2024 4:52 PM ESTAssociated Problem(s): Systolic congestive heart failure (CMS/HCC) S/P hospital discharge, continue Lasix, increase Losartan to 50 mg and start Metoprolol 12.5 mg BID. I discussed with pt and girlfriend, Tiffanie, to FU with cardiology with Dr. Polanco. * Assessment & Plan Note - Manju Baez - 12/09/2024 4:51 PM ESTAssociated Problem(s): Essential hypertension Uncontrolled, unclear about compliance, I will refer to med boxes. DC Lisinopril and increase Losartan to 50 mg, check BMP. Continue Lasix and add Metoprolol 12.5 mg BID. FU with me in 6 weeks. documented in this encounter Plan of Treatment Scheduled Orders Name Type Priority Associated Diagnoses Orde r Schedule HIV-1/2 Antigen and Antibodies, Fourth Generation, with Reflexes Lab Routine Syphilis in male Expected: 12/09/2024 (Approximate), Expires: 12/09/2025 Syphilis Screen Lab Routine Syphilis in male Expected: 12/09/2024 (Approximate), Expires: 12/09/2025 Hepatitis Panel, General Lab Routine Syphilis in male Expected: 12/09/2024 (Approximate), Expires: 12/09/2025 Basic Metabolic Panel Lab Routine Essential hypertension Expected: 12/09/2024 (Approximate), Expires: 12/09/2025 Chlamydia/N. Gonorrhoeae RNA, TMA, Urogenitial Microbiology Routine Syphilis in male Ordered: 12/09/2024 Scheduled Referrals Name Type Priority Associated Diagnoses Orde r Schedule Referral to Vascular Surgery Outpatient Referral Routine Infrarenal abdominal aortic aneurysm (AAA) without rupture (CMS/HCC) Varicose veins of both lower extremities with pain Expected: 12/09/2024 (Approximate), Expires: 12/09/2025 Referral to Cardiology Outpatient Referral Routine Systolic congestive heart failure, unspecified HF chronicity (CMS/HCC) Expected: 12/09/2024 (Approximate), Expires: 12/09/2025 documented as of this encounter Procedures Procedure Name Priority Date/Time Associated Diagnosis Comments XR KNEE 4+ VIEWS LEFT Routine 12/09/2024 3:26 PM EST Edema of knee documented in this encounter Results * XR Knee 4+ Views Left (12/09/2024 3:26 PM EST) Anatomical Region Laterality Modality Lower Extremities, Knee Left Radiogra phic Imaging 12/09/2024 3:26 PM EST Narrative 12/09/2024 4:22 PM EST ?[facility] ?[address] ?[place] [address] ?XRay Report ? Signed ? Patient: Chowdhury Fuentes,Meet ?MR#: M ?? [id number] ? : 1955 ?Acct:[id number] ? Age/Sex: 69 / M ?ADM Date: 12/09/24 ? Loc: HO.HHCX ? Attending Dr: Marta Johnson MD ? Ordering Physician: Marta Johnson MD ?? Date of Service: 12/09/24 ?? Procedure(s): XR knee LT 4V ?? Accession Number(s): [id number] ? cc: Marta Johnson MD ? EXAMINATION: ?? XR KNEE, LEFT ? CLINICAL INFORMATION: ?? sp fall/knee edema/pain ? COMPARISON: ?? None available. ? TECHNIQUE: ?? Four views of the left knee. ? FINDINGS: ?? No fracture, dislocation, or suspicious bone lesion. Normal bone ?? mineralization. ?? Normal alignment. ?? There is chondrocalcinosis in the joint compartments. Findings suggest ?? CPPD. ?? There is moderate medial and mild lateral and patellofemoral joint ?? space narrowing, with marginal productive osteophytes. There is ?? irregularity and sclerosis of the articular surface of the femoral ?? condyles and medial tibial plateau. ?? There is spurring of the tibial spines. ?? There are productive posterior osteophytes and possible loose bodies in ?? the posterior joint space. ? Large suprapatellar joint effusion. ? Soft tissues appear normal. ? XR/XR knee LT 4V ?? IMPRESSION: ?? 1. No acute bony abnormality. ?? 2. Moderate tricompartmental arthritis most significant in the medial ?? compartment. Possible posterior loose bodies. ?? 3. Chondrocalcinosis suggesting CPPD. ?? 4. Large joint effusion. ? Electronically signed by: ??Jorge Carney MD ??12/09/2024 04:19 PM EST RP ? Dictated By: ?Jorge Carney MD ? Signed By: ?<Electronically signed by Jorge Carney MD in OV> ?12/09/24 1619 ? DD/ 1526 ? TD/TT: 12/09/24 1550 ? Civil Preparedness Training Officer: ? Procedure Note Donotuseinterpreter, Image - 12/09/2024 [facility] [address] [place] [address] XRay Report Signed Patient: Anuarg Rebolledo#: M [id number] : 4Acct:[id number] Age/Sex: 69 / MADM Date: 12/09/24 Loc: HO.HHCX Attending Dr: Marta Johnson MD Ordering Physician: Marta Johnson MD Date of Service: 12/09/24 Procedure(s): XR knee LT 4V Accession Number(s): [id number] cc: Marta Johnson MD EXAMINATION: XR KNEE, LEFT CLINICAL INFORMATION: sp fall/knee edema/pain COMPARISON: None available. TECHNIQUE: Four views of the left knee. FINDINGS: No fracture, dislocation, or suspicious bone lesion. Normal bone mineralization. Normal alignment. There is chondrocalcinosis in the joint compartments. Findings suggest CPPD. There is moderate medial and mild lateral and patellofemoral joint space narrowing, with marginal productive osteophytes. There is irregularity and sclerosis of the articular surface of the femoral condyles and medial tibial plateau. There is spurring of the tibial spines. There are productive posterior osteophytes and possible loose bodies in the posterior joint space. Large suprapatellar joint effusion. Soft tissues appear normal. XR/XR knee LT 4V IMPRESSION: 1. No acute bony abnormality. 2. 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 Possible posterior loose bodies. 3. Chondrocalcinosis suggesting CPPD. 4. Large joint effusion. Electronically signed by: Jorge Carney MD 12/09/2024 04:19 PM [facility] Dictated By: Jorge Carney MD Signed By: <Electronically signed by Jorge Carney MD in OV> 12/09/24 1619 DD/ 1526 TD/TT: 12/09/24 1550 Civil Preparedness Training Officer: us Marta Johnson MD IMG XR PROCEDURES Final Result documented in this encounter Visit Diagnoses Diagnosis Essential hypertension- Primary Unspecified essential hypertension Syphilis in male Systolic congestive heart failure, unspecified HF chronicity (CMS/HCC) Infrarenal abdominal aortic aneurysm (AAA) without rupture (CMS/HCC) Edema of knee Varicose veins of both lower extremities with pain documented in this encounter Additional Health Concerns Assessment Noted Time PHQ-9 Depression Total Score: 18 09/10/ 024 3:07 PM EST documented as of this encounter Care Teams Circuit Board Assembler Relationship Specialty Start Date End Date Marta Johnson MD [address] [place] [address] PCP - General Internal Medicine 06/27/24 documented as of this encounter
--- OUTSIDE RECORDS SUMMARY | 2024-12-09 19:15 | XMS_ITS ---
Author Organization [facility] Address [address], [place] [id number] Care Team Providers Care Remelter Name Role Phone No, PCP Primary Care Provider Unavailabl e TROYKUMARW Unavailable [phone] REASON FOR VISIT Office; Checking MH status Social History Tobacco Use: Social History Observation [...] to quit Patient counseled on the aditi gers of tobacco use and advised to quit: 06/29/2023 Encounters Encounter Location Date Provider Diagnosis [facility] [address], [place] [id number] 07/23/[address]23 [facility] Plan Of Treatment No Information Progress Notes * Alexis REBOLLEDOoDOB: (68 yo M)Acc No.[id number]:07/23/2023 Patient:?Beryl Rebolledo Provider:?[facility] :1955???Age:68 Y???Sex:Male Jean Marie e:07/23/2023 Address:[address] [place] [id number] Pcp:PCP No Subjective: * Chief Complaints: * ???1. Office; Checking MH [facility]. * HPI: ???Social Service:?Date of encounter?07/23/2023?.?Referral Source?Seen at:, [facility].?Action Taken?Insurance eligibility assessed?07/23/2023 [id number] Safety [employer].?Advocacy?Member is checking his MH status . Member was approved for [employer] Safety Net due to his immigration status. Member does not have his proper documentation. Member reports working with Olinda from [facility] on his legal status. No other action taken.?.?Follow-up Required:?no.?Pt comprehension?Pt agrees with plan, Patient understood process and assisted with process.? * Medical History:? * Social History:?Housing/rell ng arrangements: 06/29/2023 [facility]rived at [facility] on . SDoH Screening?Entered Date?06/29/2023,?How is this screening being conducted today??In-person,?What is your housing situation today??I do not have housing (staying with others, in a hotel, in a snf, living outside on the street, on a beach, in a car or in a park),?Think about the place you live. Do you have problems with any of the following? (Check all that apply)?None of the above,?Within the past 12 months, you worried that your food would run out before you got money to buy more?Often true,?Within the past 12 months, the food you bought just didn't last and you didn't have enough money to get more?Often true,?In the past 12 months, has lack of transportation kept you from medical appointments, meetings, work or from getting things needed for daily living? (Check all that apply)?Yes, it has kept me from medical appointments or getting medications, Yes, it has kept me from non-medical meetings, appointments, work, or getting things that I need,?In the past 12 months has the [employer], gas, oil, or water company threatened to shut off services in your home??I am not sure,?Do you want help finding or keeping work or a job??Yes, help finding work.?Tobacco Use Assessment MU?Annual Tobacco assessment completed?06/29/2023,?Tobacco assessment completed?06/29/2023,?What age did you start smoking??13,?What is your current smoking status??current smoker,?How often do you smoke??every day,?How many cigarettes a day do you smoke??11-20,?How soon after you wake up do you smoke your first cigarette??31-60 minutes,?Are you interested in quitting??ready to quit,?Patient counseled on the dangers of tobacco use and advised to quit:?06/29/2023,?Vaping?06/29/2023 yes.?Drug use?Date of history:?06/29/2023 Denies.?Opiate Use Hx?Ever taken opiates?Yes 06/29/2023,?Age at First opiate use?63 06/29/2023 no using actually.?Alcohol Use: 06/29/2023 alcohol use every 2-3 months. Sexual Orientation?Heterosexual?06/29/2023 Identifies as Heterosexual.?Sexual Health history?Sexual History completed on:?06/29/2023,?Identifies as currently having sexual contact?No,?Identifies sexual preference as?Women ,?Number of lifetime sexual partners?greater than 10,?What types of protection do you use with your partner(s) against STI/?condom some times,?Last tested for STIs?Tested greater than one year ago,?Offered STI testing today?06/29/2023.?Mental Health: 06/29/2023 No hx of mental health issues, interested in . School?Last grade completed?12,?GED Obtained??No,?Required SPED services?No,?Reading/Writing competent?Literate.?Work Hx: 06/29/2023 most recent employment 3 days ago (temporary work). Income: No income. Legal issues/Incarcerations: 06/29/2023 denies. PCP/last visit: 06/29/2023 Has not received PCP care in several years. Transportation: 06/29/2023 , Pt doesn't have license to drive, Pt able to access reduced rate bus pass, Pt is able to walk most places, bike. Marital Status: 06/29/2023 . Next of Kin/Emerg. Contact & Community Supports: 06/29/2023 no emergency contact. Childhood experience?In fostercare/DYS for a portion of childhood?No 06/29/2023,?Victim of physical abuse?No,?Victim of sexual abuse?No,?Adults at home using drugs/drinking excessivly?Yes,?Witness to violence/DV in childhood?No.?Children: 06/29/2023 no children. Nondenominational: 06/29/2023 [employer]. TBI screening/Head injury Hx: 06/29/2023 , During incident pt lost conciousness for 30-40 min, 22 years ago. Social hx: 06/29/2023 Lived with: mother, father, siblings growing up in [place], Arrived in [facility] in [facility],. Objective: Assessment: Plan: * Images: Billing Information: Care Plan Details* * Sign off status: Completed true * Provider:?[facility] Date:?07/23/2023 Generated for Louie mcdowell/Eh/Awilda on:?12/09/2024 07:14 PM EST History and Physical Notes * HPI (History of Present Illness) Category Sub-Category Detail Notes Social Service Referral Source Seen at:, [facility] Advocacy Member is checking h is MH status . Member was approved for [employer] due to his immigration status. Member does not have his proper documentation. Member reports working with Olinda from [facility] on his legal status. No other action taken. Follow-up Required: no Pt comprehension Pt agrees with plan, Patient understood process and assisted with process Action Taken Insurance cori domínguez assessed: 07/23/2023 [id number] Safety Net Date of encounter 07/23/2023
--- OUTSIDE RECORDS SUMMARY | 2024-12-09 19:15 | XMS_ITS | Encounter Summary ---
Author Organization [employer] Address [address] [place] [address] Care Team Providers Care Hydrotel Operator Name Role Phone Marta Johnson MD Primary Care Provider + [phone] Reason for Visit * Reason Comments Hypertension 184/115 checked at home because pt was sleeping more than usual, left foot swelling denies hx chf * Auth/Cert (Routine) Specialty Diagnoses / Procedures Referred By Bernie t Referred To Contact Diagnoses New onset of congestive heart failure (CMS/HCC) Procedures [facility] IP/OBS CARE INITIAL MODERATE LEVEL PER DAY . Ivy Calvin MD [address] [place] [address] Phone: tel: fax: [facility] Emergency [address] [place] [address] Phone: tel: Referral ID Status Reason Start Date Expiration Date Visits Re quested Visits Authorized [id number] 1 1 Encounter Details Date Type Department Care Team (Latest Contact Info) Description 11/16/2024 4:01 AM EST - 11/17/2024 5:23 PM [facility] Hospital Encounter [facility] Intermediate Care Unit [address] [place] [address] Felix Rhodes MD [address] [place] [address] Ivy Calvin MD [address] [place] [address] Patricia Tracy MD [address] [place] [address] New onset of congestive heart failure (CMS/HCC) (Primary Dx); Bilateral leg edema Discharge Disposition: Home or Self Care Social History Tobacco Use Types Packs/Day Years [...] Orientation Straight 11/17/2024 5: 01 PM EST documented as of this encounter Last Filed [...] Mass Index 23.62 11/17/2024 2:14 PM EST documented in this encounter Functional Status * Are you deaf or do you have serious difficulty hearing? Answer Date of Assessment Author No 11/16/2024 7:23 AM Caraabllo RN * Are you blind or do you have serious difficulty seeing, even when wearing glasses? Answer Date of Assessment Author No 11/16/2024 7:23 AM Caraballo RN * Do you have serious difficulty walking or climbing stairs? Answer Date of Assessment Author No 11/16/2024 7:23 AM Caraballo RN * Do you have serious difficulty dressing or bathing? Answer Date of Assessment Author No 11/16/2024 7:23 AM Caraballo RN * Because of a physical, mental, or emotional condition, do you have serious difficulty doing errandsalone such as visiting the doctor? Answer Date of Assessment Author No 11/16/2024 7:23 AM Caraballo RN documented as of this encounter Mental Status * Because of a physical, mental, or emotional condition, do you have serious difficulty concentrating, remembering, or making decisions? (5 years old or older) Answer Entry Date Author No 11/16/2024 7:23 AM Caraballo RN documented in this encounter Discharge Summaries * HILARIO Escamilla - 11/17/2024 9:45 AM EST Date of admission 11/16/2024 Date of discharge 11/17/2024 Discharge Final Diagnosis: New onset of congestive heart failure (CMS/HCC) Hospital Course: From HPI: 69-year-old male who is very poor historian presented to the hospital brought by his sonfor right leg pain and swelling as well as chest pain palpitations and shortness of breath. Patient was examined and interviewed in presence of hospital employed official full time staff interpreter. Patientis Nigerian-speaking. He has past medical history significant for hypertension and goes to [facility] and his pharmacy is also at [facility] and it is closed at this point in time. Patient does not know which medication he takes but states that he takes 1 blood pressure medica tion. He did not take it this morning. In the emergency room he has been diagnosed with congestive heart failure and after conversation with the emergency room team final decision has been made to admit the patient to the hospital with hypertensive emergency and acute congestive heart failure. Functional status prior to presentation: Independent 1. Acute HFrEF: BNP 332. High-sensitivity troponin WNL 30, 31. Initial chest x- ray showed mild cardiomegaly with pulmonary vascular congestion and interstitial pulmonary edema. Respiratory viral panel was negative. Clinically he appeared volume overloaded and was started on IV Lasix. Bilateral venous duplex was negative for DVTs in the lower extremities. He underwent echocardiogram on 11/17 showingmild global hypokinesis with more specific hypokinesis in the lateral wall with mildly reduced EF, normal RV systolic function trace aortic regurgitation, trace mitral regurgitation, trace tricuspid regurgitation. He appears euvolemic on 11/17. His ambulatory oxygen saturation is stable on room air. He is stable for DC home with Lasix 20 mg daily, losartan 25 mg daily and outpatient cardiology referral. Recommend daily weight monitoring, low-salt diet which was discussed with the patient. Would benefit from the addition of beta- dana and potentially spironolactone in the outpatient setting ifBP will allow for this. PCP follow-up is recommended within 1-2 weeks. Recommend repeat BMP in 1 week with PCP to ensure stable potassium and creatinine levels with new addition of Lasix and losartan. 2. Hypertension: Upon arrival to the ED SBP 170s to 190s. He was initially started on hydralazine and Nitropaste. On 11/17 he was initiated on losartan and Nitropaste and hydralazine were discontinued.SBP now ranging 110s to 140s. Continue losartan 25 mg daily and Lasix 20 mg daily upon discharge. Follow-up with PCP upon discharge for further medication adjustment as well as clinical recruiter in the outpatient setting. If BP can tolerate would benefit from addition of beta-dana and may be spironolactone in the future. 3. RLE pain/edema: BLE duplex negative for DVTs. Suspect due to swelling which has improved with administration of IV Lasix. Initiating Lasix 20 mg daily as above. 4. Peripheral vascular disease/infrarenal aortic aneurysm: Incidentally noted to have 5 cm fusiforminfrarenal abdominal aortic aneurysm follows moderate multifocal atherosclerotic plaque, moderate mural thrombus of aorta. Patient and family were notified of findings. Provided vascular surgery referral outpatient. Begin aspirin 81 mg daily. Check lipid profile in the outpatient setting and consider statin initiation. Issues Requiring Follow-Up Care: *Outpatient cardiology follow up *Outpatient vascular surgery follow up *Repeat BMP rec w/ PCP in 1 week Outpatient Follow-Up Care: No future appointments. Your medication list START taking these medications Instructions Last Dose Given Next Dose Due furosemide 20 mg tablet Commonly known as: LASIX Rains 1 tableta (20 mg en total) por v??a oral 1 (linda) vez al d??a. (Take 1 tablet (20 mg total) by mouth 1 (one) time each day.) losartan 25 mg tablet Commonly known as: COZAAR Start taking on: November 18, 2024 Rains 1 tableta (25 mg en total) por v??a oral 1 (linda) vez al d??a. (Take 1 tablet (25 mg total) by mouth 1 (one) time each day.) Where to Get Your Medications These medications were sent to [facility] - [place], [place] - [address] [facility] [address] [facility] [address] furosemide 20 mg tablet losartan 25 mg tablet Patient Condition and Disposition at Time of Discharge: Patient was seen and examined this morning at bedside japanese interpreter Olinda ID number [id number] assisted with translation Reports he initially came due to swelling and pain in his lower extremities States he was feeling short of breath both at rest and on exertion at home Denies any shortness of breath so far today Swelling to his legs improved Denies chest pain, abdominal pain, nausea, vomiting or diarrhea Vitals: 11/17/24 1700 BP: (!) 143/96 Pulse: 91 Resp: 19 Temp: 36.2 ??C (97.2 ??F) SpO2: 94% PHYSICAL EXAMINATION: General Exam: Age-appropriate male, awake, calm, cooperative, lying in the hospital bed in no acutedistress. Skin Exam: Warm, dry and intact without diaphoresis. HEENT exam: Head appears atraumatic. No scleral icterus. Respiratory Exam: Clear to auscultation bilaterally. Cardiovascular Exam: Regular rate and rhythm. Gastrointestinal Exam: Abdomen is soft, nontender, and nondistended. Bowel sounds appreciated Musculoskeletal Exam: No lower extremity edema is appreciated. Neurological Exam: Alert and oriented x 3. Psychiatric: Stable mood and affect. Lab Results Component Value Date WBC 9.1 11/17/2024 HGB 12.4 (L) 11/17/2024 HCT 39.5 (L) 11/17/2024 MCV 91.4 11/17/2024 PLT 249 11/17/2024 Lab Results Component Value Date GLUCOSE 102 (H) 11/17/2024 CALCIUM 9.3 11/17/2024 NA 135 11/17/2024 K 4.0 11/17/2024 CO2 29 11/17/2024 CL 102 11/17/2024 BUN 13 11/17/2024 CREATININE 0.84 11/17/2024 Transthoracic echocardiogram (TTE) complete with PRN contrast, bubble, strain, and 3D order panel Final Result Vascular US duplex lower extremity venous bilateral Final Result No deep venous thrombosis of either lower extremity. -------- FINAL REPORT -------- Dictated By: Yasir Vasquez Dictated Date: 11/16/2024 08:33 ET Assigned Physician: Yasir Vasquez Reviewed and Electronically Signed By: Yasir Vasquez Signed Date: 11/16/2024 08:34 ET Workstation ID: [id number] Transcribed By: Self Edit Transcribed Date: 11/16/2024 08:[address] Abdomen Pelvis w Contrast Final Result 1. Interstitial pulmonary edema and trace right larger than left pleural effusions. 2. No acute intra-abdominal findings. 3. 5 cm fusiform infrarenal abdominal aortic aneurysm. -------- FINAL REPORT -------- Dictated By: Yasir Vasquez Dictated Date: 11/16/2024 08:20 ET Assigned Physician: Yasir Vasquez Reviewed and Electronically Signed By: Yasir Vasquez Signed Date: 11/16/2024 08:27 ET Workstation ID: [id number] Transcribed By: Self Edit Transcribed Date: 11/16/2024 08:21 ET XR Chest 2 Views Final Result Mild cardiomegaly, pulmonary vascular congestion, and interstitial pulmonary edema. -------- FINAL REPORT -------- Dictated By: Yasir Vasquez Dictated Date: 11/16/2024 08:16 ET Assigned Physician: Yasir Vasquez Reviewed and Electronically Signed By: Yasir Vasquez Signed Date: 11/16/2024 08:21 ET Workstation ID: [id number] Transcribed By: Self Edit Transcribed Date: 11/16/2024 08:16 ET Recent Results (from the past 168 hour(s)) Respiratory virus panel molecular study Collection Time: 11/17/24 9:50 AM Specimen: Nasopharynx; Swab Result Value Ref Range Adenovirus Detection by PCR Not Detected Not Detected Influenza A PCR Not Detected Not Detected Influenza B PCR Not Detected Not Detected Coronavirus 229E Not Detected Not Detected Coronavirus HKU1 Not Detected Not Detected Coronavirus OC43 Not Detected Not Detected Coronavirus NL63 Not Detected Not Detected Parainfluenza Virus 1 Not Detected Not Detected Parainfluenza Virus 2 Not Detected Not Detected Parainfluenza Virus 3 Not Detected Not Detected Parainfluenza Virus 4 Not Detected Not Detected RSV PCR Not Detected Not Detected Human Metapneumovirus A and B Not Detected Not Detected Rhinovirus/Enterovirus Not Detected Not Detected Bordetella pertussis Not Detected Not Detected Bordetella parapertussis Not Detected Not Detected Mycoplasma pneumo by PCR Not Detected Not Detected Chlamydia pneumoniae Not Detected Not Detected SARS COV-2 Not Detected Not Detected 11/16/24 TRANSTHORACIC ECHOCARDIOGRAM (TTE) COMPLETE (CONTRAST/BUBBLE/3D PRN) 11/17/2024 11/17/2024 Interpretation Summary Left ventricle cavity size is normal.Left ventricle mild hypertrophy. . Very mild global hypokinesis with more specific hypokinesis in the lateral wall. Global longitudinal strain is diminished at -14.7% Right ventricle cavity is normal. Right ventricular systolic function is normal. Tricuspid Valve: Estimated RA pressure is 3 mmHg. The RVSP is estimated at 35 mmHg. Trace aortic insufficiency Signed by: Didier Zhao MD on 11/17/2024 2:55 PM Discharge Instructions: Discharge Procedure Orders Provider: Order Specific Question Answer Comments Instructions for follow-up: 5 cm infrarenal AAA Follow-Up in: 1 Follow-Up in: Months Provider: Order Specific Question Answer Comments Instructions for follow-up: acute HfrEF Follow-Up in: 1 Follow-Up in: Months Total time spent performing chart review, assessing the patient, documenting, discussing with attending MD/bedside RN/ICC, updating family, arranging care and performing a high level of medical decision making approximately 45 minutes. Case discussed with Dr. Tracy Cosigned by Patricia Tracy MD at 11/17/2024 5:37 PM EST documented in this encounter Discharge Instructions * Discharge Instructions* HILARIO Escamilla - 11/17/2024 3:51 PM EST You were diagnosed with congestive heart failure Begin baby aspirin daily Begin Lasix 20 mg daily Begin losartan 25 mg daily I have provided referral to clinical recruiter outpatient through [facility]. Phone numberto their office is [phone]. Please call their office to arrange appointment for follow-up You were incidentally found to have a 5 cm abdominal aortic aneurysm which will require follow-up outpatient to discuss potential surgical intervention. I have placed a referral to vascular surgeon, . Phone number to his office is [phone]. Please call to arrange appointment outpatientas soon as possible Monitor your weight daily Follow a low-salt diet If you notice your weight increased 3 pounds in 1 day or 5 pounds in 1 week please call your primary care provider for further instruction regarding your diuretic Recommend repeat blood work to monitor your kidney function and potassium level in 1 week. Your primary care will need to arrange this. Please reach out to their office 11/18/24 to schedule. Return to the ED with any new or worsening symptoms Primary care follow-up recommended within 1-2 weeks. * Attachments The following attachments cannot be sent through Care Everywhere. * Diuretics: General Info (Nigerian) * Heart Failure: General Info (Nigerian) documented in this encounter Medications at Time of Discharge losartan (COZAAR) 25 mg tablet Take 1 tablet (25 mg total) by mouth 1 (one) time each day. 30 each 11/18/2024 12/18/2024 aspirin 81 mg EC tablet Take 1 tablet (81 mg total) by mouth 1 (one) time each day. 30 tablet 11/17/2024 12/17/2024 furosemide (LASIX) 20 mg tablet Take 1 tablet (20 mg total) by mouth 1 (one) time each day. 30 each 11/17/2024 12/17/2024 documented as of this encounter Ordered Prescriptions Prescription Sig Dispense Quantity Refills Last Filled Start Date End Date aspirin 81 mg EC tablet Take 1 tablet (81 mg total) by mouth 1 (one) time each day. 30 tablet 11/17/2024 12/17/2024 furosemide (LASIX) 20 mg tablet Take 1 tablet (20 mg total) by mouth 1 (one) time each day. 30 each 11/17/2024 12/17/2024 losartan (COZAAR) 25 mg tablet Take 1 tablet (25 mg total) by mouth 1 (one) time each day. 30 each 11/18/2024 12/18/2024 documented in this encounter Discharge Disposition Disposition Code Departure Means Destination Comment s Home or Self Care Wheelchair documented in this encounter Progress Notes * Telma Alves RN - 11/17/2024 5:20 PM EST 11/17/24 1715 Transportation What day is the transport expected? 11/17/24 Final Discharge Disposition Home or Self Care Pt d/c home with self care * Telma Alves RN - 11/17/2024 11:53 AM EST 11/17/24 1152 Initial Transition Plan Initial Transition Plan Home Back up Transition Plan Back up Transition plan Home Health Care Discharge Planning Living Arrangements Friends Type of Residence Private residence Assistive Devices Cane Support Systems Friends Medication Coverage Medication Affordability No concerns related to payment for meds Anticipated Discharge Needs Home Health RN Discipline following for SNF placement Mathematician Informed Choice Informed Choice Given? Yes Transportation Transportation at discharge Other (comment) (Pt reported he will need assitance with tranportaion at d/c) ICC met with pt at bed side. Brine Tank Tender [id number] utilized. Pt reported he has a scale at home to weigh himself and is open to VNA referral at d/c. Pt reported PCP and medications are through [facility]. * Gonzalez White RN - 11/17/2024 7:43 AM EST Patient complained of headache 07/24. PRN Tylenol administered with good effect. * Carleen Michael RN - 11/16/2024 1:34 PM EST GIRLFRIEND SHARA GAFFNEY - * Kamryn Hart RN - 11/16/2024 1:32 PM EST ED RN HANDOFF (All Perez Below Must Be Completed) Reason/Diagnosis for Admission: new onset chf Type of Admission: [] Medsurg, [x] Telemetry Already in a Hospital Bed: [] Yes / [x] No Room Considerations/Precautions (ex: fever, diarrhea, or any infectious concerns): [] Yes / [x] No Oracle Solutions Architect: [x] Yes / [] No If YES, Cardiac Rhythm: [x] NSR, [] SB, [] ST, [] A-FIB, [] A-Flutter, [] Pacemaker, [] 1st Degree HB, [] 2nd Degree HB, [] 3rd Degree HB Reason for Oracle Solutions Architect: New onset CHF- htn, SOB VS: Visit Vitals BP (!) 153/111 Pulse 100 Temp 36.6 ??C (97.8 ??F) (Oral) Resp 16 Ht 1.854 m (73 ) Wt 88.8 kg (195 lb 12.8 oz) SpO2 95% BMI 25.83 kg/m?? Smoking Status Every Day BSA 2.13 m?? Current Mental Status: A/O x [x]4, []3, []2, []1 Current Ambulation Status: Independent IV Access: [x] Yes / [] No Field IV present: [] Yes / [x] No Hx of Violence: [] Yes / [x] No / [] Unknown Fall Risk:[] Yes / [x] No Yellow Bracelet Applied [] Yes / [x] No Yellow Socks Applied [] Yes / [x] No Patient Belongings inventoried and BL completed: [x] Yes / [] No Patient belongings stored in the security closet: [] Yes (If Yes please supply Security bag #): [] No Patient Medications stored in Pharmacy: [] Yes (If Yes please supply Medication Security bag #): [] No ED Summary of Care: CT chest and abdomen, shows pulmonary edema and trace right and left pleural effusions. Venous doppler of legs negative. IV lasix 40mg x1. Hydralazine and lisinopril no effect on bp, labetolol administered with little effect. Nitropaste applied to left chest at 11am. Submitted by and Phone Extension: Pete Hart [phone] * Tony Larson RN - 11/16/2024 6:58 AM EST Pt back from CT. * Tony Larson RN - 11/16/2024 6:49 AM EST Pt DARIUS to CT. * Tony Larson RN - 11/16/2024 6:47 AM EST Pt back from Xray. * Tony Larson RN - 11/16/2024 6:41 AM EST Pt DARIUS to Xray. * Tony Larson RN - 11/16/2024 6:25 AM EST Pt was seen desatting to the 80s, pt was placed on 2L nasal cannula. SPO2 96%+ at this time. * Tony Larson RN - 11/16/2024 4:14 AM EST Pt comes in from waiting room complaining of high blood pressure and right lower extremity edema. Pt states he's on Lisinopril 10mg once a day in the morning which he took yesterday morning, denies chest pain at this time. Pt also denies any significant medical hx besides HTN. * Marii Nassar RN - 11/16/2024 2:37 AM EST Pt c/o high blood pressure reading at home (184/150) and bilateral lower extremity pitting edema x 3 days. Not on any diuretics. No previous history of extremity swelling. * Felix Rhodes MD - 11/16/2024 2:32 AM EST Emergency Medicine Note Patient Name: Meet Fuentes Initial Evaluation: 11/16/2024 : 1955 Patient's PCP: No Pcp Physician Emergency Physician: Felix Rhodes MD History of Present Illness Chief Complaint: Chief Complaint Patient presents with Hypertension 184/115 checked at home because pt was sleeping more than usual, left foot swelling denies hx chf HPI: 69-year-old male, history of hypertension, presents with hypertension. Patient's son provided most of the history, patient has been having swelling in both of his legs, left greater than right, as well as some shortness of breath. He is not having any chest pain. His blood pressure was high per his , who checked and it was 184/115. He was brought to the ED for evaluation. He has had increasing somnolence over the past few days. He is not having any fever. He is not having any cough. Heis not having abdominal pain, no nausea/vomiting/diarrhea. ROS: I have performed a ROS with the pertinent positives and negatives documented in the history ofpresent illness. Previous History Past Medical History: Diagnosis Date Hypertension History reviewed. No pertinent surgical history. Social History Tobacco Use Smoking status: Every Day Types: Cigarettes No family history on file. has No Known Allergies. No current facility-administered medications on file prior to encounter. No current outpatient medications on file prior to encounter. Physical Exam ED Triage Vitals [11/16/24 0241] Temp Heart Rate Resp BP 36.7 ??C (98.1 ??F) 94 16 (!) 179/128 SpO2 Temp Source Heart Rate Source Patient Position 93 % Oral Monitor Sitting BP Location FiO2 (%) Right arm -- General: Well-appearing, well nourished, in no acute distress HEENT: PERRL, EOMI, external ears and nose appear unremarkable, airway is patent Neck: Supple, full range of motion Chest: Clear to auscultation; no evidence of respiratory distress Circulatory: RRR, extremities well perfused Abdomen: Non-distended, Non-Tender Extremities: Normal ROM, 1+ pitting edema bilaterally, no tenderness in either one of his calves bilaterally Skin: Warm and dry Neuro: Alert and oriented, no focal deficits Results Labs Reviewed B-TYPE NATRIURETIC PEPTIDE - Abnormal Result Value BNP 332 (*) CBC WITH AUTO DIFFERENTIAL - Abnormal WBC 7.6 RBC 4.30 (*) Hemoglobin 12.3 (*) Hematocrit 40.2 (*) MCV 93.7 MCH 28.7 MCHC 30.6 (*) RDW 13.2 Platelets 226 MPV 10.1 NRBC 0.0 NRBC Absolute 0.00 Neutrophils Relative 65.6 Lymphocytes Relative 20.6 Monocytes Relative 10.0 Eosinophils Relative 3.0 Basophils Relative 0.5 Immature Granulocytes Relative 0.3 Neutrophils Absolute 4.98 Lymphocytes Absolute 1.56 Monocytes Absolute 0.76 Eosinophils Absolute 0.23 Basophils Absolute 0.04 Immature Granulocytes Absolute 0.02 BASIC METABOLIC PANEL - Normal Sodium 139 Potassium 4.5 Chloride 104 CO2 31 Anion Gap 4 Glucose 97 BUN 15 Creatinine 0.98 eGFR 83 BUN/Creatinine Ratio 15.3 Calcium 8.7 TROPONIN I HIGH SENSITIVITY - Normal High Sensitivity Troponin I 30 Narrative: High levels of biotin in samples may falsely decrease hsTroponin values. Use caution when interpreting hsTroponin results in patients taking biotin who exhibit renal impairment (eGFR <60) or in patients taking more than 20 mg/day of biotin. TROPONIN I HIGH SENSITIVITY - Normal High Sensitivity Troponin I 31 Narrative: High levels of biotin in samples may falsely decrease hsTroponin values. Use caution when interpreting hsTroponin results in patients taking biotin who exhibit renal impairment (eGFR <60) or in patients taking more than 20 mg/day of biotin. CBC AND DIFFERENTIAL Narrative: The following orders were created for panel order CBC and differential. Procedure Abnormality Status --------- ------ CBC auto differential[[id number]] Abnormal Final result Please view results for these tests on the individual orders. Abnormal Labs Reviewed B-TYPE NATRIURETIC PEPTIDE - Abnormal; Notable for the following components: Result Value BNP 332 (*) All other components within normal limits CBC WITH AUTO DIFFERENTIAL - Abnormal; Notable for the following components: RBC 4.30 (*) Hemoglobin 12.3 (*) Hematocrit 40.2 (*) MCHC 30.6 (*) All other components within normal limits Vascular US duplex lower extremity venous bilateral Final Result No deep venous thrombosis of either lower extremity. -------- FINAL REPORT -------- Dictated By: Yasir Vasquez Dictated Date: 11/16/2024 08:33 ET Assigned Physician: Yasir Vasquez Reviewed and Electronically Signed By: Yasir Vasquez Signed Date: 11/16/2024 08:34 ET Workstation ID: [id number] Transcribed By: Self Edit Transcribed Date: 11/16/2024 08:[address] Abdomen Pelvis w Contrast Final Result 1. Interstitial pulmonary edema and trace right larger than left pleural effusions. 2. No acute intra-abdominal findings. 3. 5 cm fusiform infrarenal abdominal aortic aneurysm. -------- FINAL REPORT -------- Dictated By: Yasir Vasquez Dictated Date: 11/16/2024 08:20 ET Assigned Physician: Yasir Vasquez Reviewed and Electronically Signed By: Yasir Vasquez Signed Date: 11/16/2024 08:27 ET Workstation ID: [id number] Transcribed By: Self Edit Transcribed Date: 11/16/2024 08:21 ET XR Chest 2 Views Final Result Mild cardiomegaly, pulmonary vascular congestion, and interstitial pulmonary edema. -------- FINAL REPORT -------- Dictated By: Yasir Vasquez Dictated Date: 11/16/2024 08:16 ET Assigned Physician: Yasir Vasquez Reviewed and Electronically Signed By: Yasir Vasquez Signed Date: 11/16/2024 08:21 ET Workstation ID: [id number] Transcribed By: Self Edit Transcribed Date: 11/16/2024 08:16 ET Transthoracic echocardiogram (TTE) complete with PRN contrast, bubble, strain, and 3D order panel (Results Pending) I have discussed the incidental/abnormal imaging and/or lab abnormalities with the patient and haveinstructed them the need for further evaluation and workup with their primary care doctor. I have provided the patient with a paper copy of the abnormality. The laboratory results, imaging results and other diagnostic exam results were reviewed in the EMR. EKG Interpretation Critical Care Time None ? Medical Decision Making Medications nitroglycerin (NITRO-BID) 2 % ointment 1 inch (1 inch Topical Given 11/16/24 170) ondansetron ODT (ZOFRAN-ODT) disintegrating tablet 4 mg (has no administration in time range) Or ondansetron (PF) (ZOFRAN) injection 4 mg (has no administration in time range) furosemide (LASIX) injection 40 mg (40 mg intravenous Given 11/16/24 1708) perflutren lipid microsphere (DEFINITY) 1.3 mL in sodium chloride 0.9% 8.7 mL injection (has no administration in time range) acetaminophen (TYLENOL) tablet 650 mg (650 mg oral Given 11/16/24 1709) lisinopriL (PRINIVIL,ZESTRIL) tablet 10 mg (10 mg oral Given 11/16/24 0523) hydrALAZINE (APRESOLINE) tablet 10 mg (10 mg oral Given 11/16/24 0523) labetalol (NORMODYNE) injection 10 mg (10 mg intravenous Given 11/16/24 0705) sodium chloride 0.9 % flush 10 mL (10 mL intravenous Given 11/16/24 0653) iopamidoL (ISOVUE-370) 370 mg iodine /mL (76 %) injection 90 mL (90 mL intravenous Given 11/16/24 0653) furosemide (LASIX) injection 40 mg (40 mg intravenous Given 11/16/24 1023) ED Course as of 11/16/247 Sun Nov 16, 2024 1000 Chest x-ray showing Mild cardiomegaly, pulmonary vascular congestion, and interstitial pulmonary edema. [CC] 1000 Attempted to order EKG but he cannot tolerate at this time. Will use japanese interpreter to obtain more meaningful history. [CC] 1000 No DVT on leg ultrasound. [CC] 1000 CT abdomen pelvis without intra-abdominal pathology. [CC] 1000 No significant leukocytosis. Anemia with an H&H of 12.3 and 40.2. BNP is 332. High sensitive troponin is 30. Electrolytes renal function reassuring. [CC] 1006 Patient presenting with significant hypertension. Workup shows pulmonary edema, apparently newonset CHF. Will be treated with IV diuretics, IV antihypertensives, and hospitalization for furtherworkup, echocardiogram [LD] 1034 EKG showing normal sinus rhythm at 89 bpm, no significant ST segment changes, no T wave inversions, no EKG available for comparison [CC] ED Course User Index [CC] HILARIO Wall [LD] Castillo Pérez MD Clinical Impressions as of 11/16/24 2327 Bilateral leg edema New onset of congestive heart failure (CMS/HCC) 69-year-old male, history of hypertension, who presents with hypertension and bilateral lower extremity edema associated with shortness of breath. Patient does not have a history of congestive heart failure. Potential etiologies for this patient's symptoms include but not limited to ACS, new onset congestive heart failure, hypertensive emergency, pneumonia, bronchitis, DVT. Patient is hypertensive on arrival, 183/121. He has not taken his morning lisinopril, he will be given a dose of his morning lisinopril as well as additional dose of hydralazine. Chest x-ray is pending to assess for possible pneumonia. 6 AM: Patient now complaining of abdominal pain and increasing shortness of breath. He has not had his chest x-ray as yet, will add on a CT of the abdomen and pelvis to assess for causes of his abdominal pain. Bilateral lower extremity ultrasounds also been ordered at this time. His blood pressure has not changed significantly, will place an IV and give IV medication to try to lower his blood pressure. Procedures Procedures Diagnosis 1. New onset of congestive heart failure (CMS/HCC) Transthoracic echocardiogram (TTE) complete withPRN contrast, bubble, strain, and 3D order panel Transthoracic echocardiogram (TTE) complete with PRN contrast, bubble, strain, and 3D order panel 2. Bilateral leg edema Vascular US duplex lower extremity venous bilateral Vascular US duplex lower extremity venous bilateral CANCELED: Vascular US Duplex Lower Extremity Venous Right CANCELED: Vascular US Duplex Lower Extremity Venous Left CANCELED: Vascular US Duplex Lower Extremity Venous Right CANCELED: Vascular US Duplex Lower Extremity Venous Left Disposition Admit to Inpatient ED Prescriptions None Physician Attestation Felix Rhodes MD 11/16/24 0642 Felix Rhodes MD 11/16/24 2327 documented in this encounter H&P Notes * Ivy Calvin MD - 11/16/2024 11:35 AM EST Images from the original note were not included. [facility] HISTORY AND PHYSICAL Please contact author [Ivy Calvin MD] via [email or web address]. Patient: Meet Fuentes Admission Date/Time: 11/16/2024 4:01 AM : 1955 [69 y.o.] Patient's PCP: No Pcp Physician Attending Provider: Ivy Calvin MD CHIEF COMPLAINT Right leg pain and swelling as well as shortness of breath HISTORY OF PRESENT ILLNESS 69-year-old male who is very poor historian presented to the hospital brought by his son for right leg pain and swelling as well as chest pain palpitations and shortness of breath. Patient was examined and interviewed in presence of hospital employed official full time staff interpreter. Patientis Nigerian-speaking. He has past medical history significant for hypertension and goes to [facility] and his pharmacy is also at [facility] and it is closed at this point in time. Patient does not know which medication he takes but states that he takes 1 blood pressure medica tion. He did not take it this morning. In the emergency room he has been diagnosed with congestive heart failure and after conversation with the emergency room team final decision has been made to admit the patient to the hospital with hypertensive emergency and acute congestive heart failure. Functional status prior to presentation: Independent Review of Systems Review of Systems Review of systems positive for right leg swelling as well as calf pain. Also shortness of breath with dyspnea on exertion and paroxysmal nocturnal dyspnea for 2 days. No fever no chills no cough. He does have intermittent chest discomfort radiating around his neck. All other systems reviewed and negative MEDICAL HISTORY Past Medical History Past Medical History: Diagnosis Date Hypertension Severe peripheral vascular disease Chronic aortic dissection and infrarenal aorta Aortic aneurysm of 5 cm Past Surgical History History reviewed. No pertinent surgical history. Social History reports that he has been smoking cigarettes. He does not have any smokeless tobacco history on file. The pa family history positive for hypertension per patient tient states there is a history in Allergies has No Known Allergies. Home Medications No current facility-administered medications on file prior to encounter. No current outpatient medications on file prior to encounter. Patient has pharmacy within the [facility]. This outpatient pharmacy is currently closed and I cannot get the list of his medications. He states he only takes 1 blood pressure medication OBJECTIVE Vitals Visit Vitals BP (!) 176/112 (BP Location: Left arm) Pulse 84 Temp 36.6 ??C (97.8 ??F) (Oral) Resp 16 Temp (24hrs), Av.7 ??C (98 ??F), Min:36.6 ??C (97.8 ??F), Max:36.7 ??C (98.1 ??F) Body mass index is 25.83 kg/m??. No results found for: PTWT , PTHT Physical Examination Physical Exam On a physical exam is a Nigerian-speaking male currently no apparent distress alert and oriented to person place and time and with no focal neurological deficits. Skin is clear with no lesions or rashes Lungs are with bilateral crackles but no wheezes. Positive JVD's at 30 degrees Heart exam reveals S1-S2 with regular rate and rhythm no murmurs rubs gallops Abdomen soft nontender nondistended with normal bowel sounds and without any masses Extremities with no edema except in the right leg that has +1 pitting edema. ECG: Reviewed EKG and shows normal sinus rhythm with no ST segment elevations or depressions and noQTc prolongation. LAB RESULTS (most recent) HEMATOLOGY Lab Results Component Value Date WBC 7.6 11/16/2024 HGB 12.3 (L) 11/16/2024 HCT 40.2 (L) 11/16/2024 MCV 93.7 11/16/2024 PLT 226 11/16/2024 CHEMISTRY Lab Results Component Value Date GLUCOSE 97 11/16/2024 NA 139 11/16/2024 K 4.5 11/16/2024 CO2 31 11/16/2024 CL 104 11/16/2024 BUN 15 11/16/2024 CREATININE 0.98 11/16/2024 EGFR 83 11/16/2024 CALCIUM 8.7 11/16/2024 ANIONGAP 4 11/16/2024 Radiology Vascular US duplex lower extremity venous bilateral Final Result No deep venous thrombosis of either lower extremity. -------- FINAL REPORT -------- Dictated By: Yasir Vasquez Dictated Date: 11/16/2024 08:33 ET Assigned Physician: Yasir Vasquez Reviewed and Electronically Signed By: Yasir Vasquez Signed Date: 11/16/2024 08:34 ET Workstation ID: [id number] Transcribed By: Self Edit Transcribed Date: 11/16/2024 08:[address] Abdomen Pelvis w Contrast Final Result 1. Interstitial pulmonary edema and trace right larger than left pleural effusions. 2. No acute intra-abdominal findings. 3. 5 cm fusiform infrarenal abdominal aortic aneurysm. -------- FINAL REPORT -------- Dictated By: Yasir Vasquez Dictated Date: 11/16/2024 08:20 ET Assigned Physician: Yasir Vasquez Reviewed and Electronically Signed By: Yasir Vasquez Signed Date: 11/16/2024 08:27 ET Workstation ID: [id number] Transcribed By: Self Edit Transcribed Date: 11/16/2024 08:21 ET XR Chest 2 Views Final Result Mild cardiomegaly, pulmonary vascular congestion, and interstitial pulmonary edema. -------- FINAL REPORT -------- Dictated By: Yasir Vasquez Dictated Date: 11/16/2024 08:16 ET Assigned Physician: Yasir Vasquez Reviewed and Electronically Signed By: Yasir Vasquez Signed Date: 11/16/2024 08:21 ET Workstation ID: [id number] Transcribed By: Self Edit Transcribed Date: 11/16/2024 08:16 ET Transthoracic echocardiogram (TTE) complete with PRN contrast, bubble, strain, and 3D order panel (Results Pending) I have personally reviewed CAT scan of abdomen and pelvis that shows severe peripheral vascular disease as well as chronic aortic dissection infrarenal aorta. ASSESSMENT & PLAN This is a 56-year-old gentleman with longstanding hypertension currently presenting with 1. Acute congestive heart failure. This is unclear whether it is systolic or diastolic. This is probably a consequence of longstanding poorly controlled blood pressure. 2. Hypertensive emergency. 3. Right leg pain and swelling. 4. Severe peripheral vascular disease with infrarenal aortic aneurysm and chronic dissection. Patient will be admitted to the hospital for strict blood pressure control. He will be started on hydralazine as well as Nitropaste. Lasix 40 mg IV twice daily will be started. Given significant peripheral vascular disease he will have to be on aspirin. Serial troponins will be checked. Strict inputs and outputs will be followed along with creatinine and electrolytes. I have asked patient to ask his son to bring the information about his medication to the hospital. Post discharge it is recommended that patient follows up with vascular surgeon for his AAA and chronic dissection. Admission checklist [] Code status: Full Code - Default [] VTE Prophylaxis: Lovenox [] Diet order on admission: Dietary Orders (From admission, onward) Start Ordered 11/16/24 1045 Adult diet [facility]; General, Cardiac; Regular; Caffeine Restricted Diet effective now Question Answer Comment Location [facility] Diet Type (req) General Diet Type (req) Cardiac General Diet Regular Diet Type (cardiac) Caffeine Restricted 11/16/24 1044 [] Lines, tubes, drains: [] Medication reconciliation impossible since patient does not know his medications and his pharmacy is within [facility] with and is currently closed. Health Care proxy with Phone number Alternate Medical Editor nathaniel parmar (Relative) documented in this encounter Plan of Treatment Upcoming Encounters Date Type Department Care Team (Late st Contact Info) Description 01/21/2025 2:00 PM EDT Office Visit Vascular Surgery - [place] [address] [place] [address] Garima Munoz PA [address] [place] [address] documented as of this encounter Procedures Procedure [...] AUTO DIFFERENTIAL STAT 11/16/2024 3:23 AM EST CBC AND DIFFERENTIAL STAT 11/16/2024 3:23 AM EST B-TYPE NATRIURETIC PEPTIDE STAT 11/16/2024 3:23 AM EST BASIC METABOLIC PANEL STAT 11/16/2024 3:23 AM EST ECG ANNOTATED 11/16/2024 documented in this encounter Results * (ABNORMAL) TRANSTHORACIC ECHOCARDIOGRAM (TTE) COMPLETE [...] 3.8 cm2 CV PACS Left [facility] [place] 5.6 cm CV PACS Left [facility] [place] 5.9 cm CV PACS [place] Area Sys [...] was adequate. Additional technique includes myocardial strain. us Ivy Calvin MD CV ECHO PROCEDURES Final Resul t * Respiratory virus panel molecular study (11/17/2024 9:50 AM EST) [facility] Adenovirus Detection by PCR Not Detected Not Detected LAB MICROBIOLOGY METHOD 11/17/2024 1:[address] [facility] Influenza A PCR Not Detected Not Detected LAB MICROBIOLOGY METHOD 11/17/2024 1:[address] [facility] Influenza B PCR Not Detected Not Detected LAB MICROBIOLOGY METHOD 11/17/2024 1:[address] [facility] Coronavirus 229E Not Detected Not Detected LAB MICROBIOLOGY METHOD 11/17/2024 1:[address] [facility] Coronavirus HKU1 Not Detected Not Detected LAB MICROBIOLOGY METHOD 11/17/2024 1:46 PM [facility] Coronavirus OC43 Not Detected Not Detected LAB MICROBIOLOGY METHOD 11/17/2024 1:46 PM [facility] Coronavirus NL63 Not Detected Not Detected LAB MICROBIOLOGY METHOD 11/17/2024 1:46 PM [facility] Parainfluenza Virus 1 Not Detected Not Detected LAB MICROBIOLOGY METHOD 11/17/2024 1:46 PM [facility] Parainfluenza Virus 2 Not Detected Not Detected LAB MICROBIOLOGY METHOD 11/17/2024 1:46 PM [facility] Parainfluenza Virus 3 Not Detected Not Detected LAB MICROBIOLOGY METHOD 11/17/2024 1:46 PM [facility] Parainfluenza Virus 4 Not Detected Not Detected LAB MICROBIOLOGY METHOD 11/17/2024 1:[address] [facility] RSV PCR Not Detected Not Detected LAB MICROBIOLOGY METHOD 11/17/2024 1:46 PM [facility] Human Metapneumovirus A and B Not Detected Not Detected LAB MICROBIOLOGY METHOD 11/17/2024 1:46 PM [facility] Rhinovirus/Entero virus Not Detected Not Detected LAB MICROBIOLOGY METHOD 11/17/2024 1:46 PM [facility] Bordetella pertussis Not Detected Not Detected LAB MICROBIOLOGY METHOD 11/17/2024 1:[address] [facility] Bordetella parapertussis Not Detected Not Detected LAB MICROBIOLOGY METHOD 11/17/2024 1:46 PM [facility] Mycoplasma pneumo by PCR Not Detected Not Detected LAB MICROBIOLOGY METHOD 11/17/2024 1:46 PM [facility] Chlamydia pneumoniae Not Detected Not Detected LAB MICROBIOLOGY METHOD 11/17/2024 1:46 PM [facility] SARS COV-2 Not Detected Not Detected LAB MICROBIOLOGY METHOD 11/17/2024 1:46 PM [facility] Swab Nasopharyngeal structure / Unknown Non-blood Collection / Unknown 11/17/2024 9:50 AM EST 11/17/2024 11:42 AM EST [facility] - 11/17/2024 1:46 PM EST Testing was performed using the [employer] Respiratory Pathogen PCR Assay. All results must [...] LAB MICROBIOLOGY - GENERAL ORDERABLES Final Result [facility] [address] [place] [address], * (ABNORMAL) Complete blood count (11/17/2024 6:17 AM EST) WBC 9.1 4.8 - 10.8 K/mcL LAB HEMETOLOGY METHOD 11/17/2024 7:39 AM [facility] RBC 4.30(L) 4.50 - 5.50 M/mcL LAB HEMETOLOGY METHOD 11/17/2024 7:39 AM [facility] Hemoglobin 12.4(L) 13.5 - 17.5 g/dL LAB HEMETOLOGY METHOD 11/17/2024 7:39 AM [facility] Hematocrit 39.5(L) 42.0 - 54.0 % LAB HEMETOLOGY METHOD 11/17/2024 7:39 AM [facility] MCV 91.4 79.0 - 98.0 FL LAB HEMETOLOGY METHOD 11/17/2024 7:39 AM [facility] MCH 28.7 27.0 - 32.0 pcg LAB HEMETOLOGY METHOD 11/17/2024 7:39 AM [facility] MCHC 31.4(L) 32.0 - 37.0 g/dL LAB HEMETOLOGY METHOD 11/17/2024 7:39 AM [facility] RDW 13.2 11.0 - 15.0 % LAB HEMETOLOGY METHOD 11/17/2024 7:39 AM [facility] Platelets 249 130 - 400 K/mcL LAB HEMETOLOGY METHOD 11/17/2024 7:39 AM [facility] MPV 10.6 7.0 - 11.0 FL LAB HEMETOLOGY METHOD 11/17/2024 7:39 AM [facility] NRBC 0.0 <1.0 % LAB HEMETOLOGY METHOD 11/17/2024 7:39 AM [facility] NRBC Absolute 0.00 <0.10 K/mcL LAB HEMETOLOGY METHOD 11/17/2024 7:39 AM [facility] Blood Venous blood specimen / Unknown Venipuncture / Unknown 11/17/2024 6:17 AM EST 11/17/2024 7:01 AM EST us Ivy Calvin MD LAB BLOOD ORDERABLES Final Res ult [facility] [address] [place] [address], [place] [phone] * (ABNORMAL) Basic metabolic panel (11/17/2024 6:17 AM EST) Sodium 135 133 - 145 mmol/L LAB CHEMISTRY METHOD 11/17/2024 8:19 AM [facility] Potassium 4.0 3.5 - 5.5 mmol/L LAB CHEMISTRY METHOD 11/17/2024 8:19 AM [facility] Chloride 102 96 - 110 mmol/L LAB CHEMISTRY METHOD 11/17/2024 8:19 AM [facility] CO2 29 21 - 32 mmol/L LAB CHEMISTRY METHOD 11/17/2024 8:19 AM [facility] Anion Gap 4 3 - 11 LAB CHEMISTRY METHOD 11/17/2024 8:19 AM [facility] Glucose 102(H) 70 - 100 mg/dL LAB CHEMISTRY METHOD 11/17/2024 8:19 AM [facility] BUN 13 5 - 25 mg/dL LAB CHEMISTRY METHOD 11/17/2024 8:19 AM [facility] Creatinine 0.84 0.70 - 1.30 mg/dL LAB CHEMISTRY METHOD 11/17/2024 8:19 AM [facility] eGFR 94 >=60 mL/min/1. 73m2 LAB CHEMISTRY METHOD 11/17/2024 8:19 AM [facility] Comment:Calculation based on the??Chronic Kidney Disease Epidemiology Collaboration (CKD-EPI) equation refit??without adjustment for race. BUN/Creatinine Ratio 15.5 LAB CHEMISTRY METHOD 11/17/2024 8:19 AM [facility] Calcium 9.3 8.5 - 10.5 mg/dL LAB CHEMISTRY METHOD 11/17/2024 8:19 AM [facility] Blood Venous blood specimen / Unknown Venipuncture / Unknown 11/17/2024 6:17 AM EST 11/17/2024 7:05 AM EST Ivy Calvin MD LAB BLOOD ORDERABLES Final Res ult Performing Organization Address [facility] Co de Phone Number [facility] [address] [place] [address], [place] [phone] * Troponin I high sensitivity (11/16/2024 11:00 AM EST) [facility] High Sensitivity Troponin I 31 <=79 ng/L LAB CHEMISTRY METHOD 11/16/2024 11:[address] [facility] Blood Venous blood specimen / Unknown Venipuncture / Unknown 11/16/2024 11:00 AM EST 11/16/2024 11:[address] [facility] - 11/16/2024 11:31 AM EST High levels of biotin in samples may falsely decrease hsTroponin values. ??Use caution when interpreting hsTroponin results in patients taking biotin who exhibit renal impairment (eGFR <60) or in patients taking more than 20 mg/day of biotin. Ivy Calvin MD LAB BLOOD ORDERABLES Final Res ult Performing Organization Address [facility] de Phone Number [facility] [address] [place] [address], [place] [phone] * ECG 12 lead (11/16/2024 10:28 AM EST) [facility] Ventricular Rate ECG 89 BPM GEMUSE Atrial Rate 89 BPM GEMUSE P-R Interval 196 ms GEMUSE QRS Duration 86 ms GEMUSE Q-T Interval 388 ms GEMUSE QTc 472 ms GEMUSE P Wave [place] 68 degrees GEMUSE R [place] 61 degrees GEMUSE T [place] 40 degrees GEMUSE ECG Interpretation Normal sinus rhythm No previous ECGs available Confirmed by CASE FERNANDES ([id number]) on 11/17/2024 5:17:04 AM GEMUSE 11/16/2024 10:2 8 AM EST 11/17/2024 5:17 AM EST us Luis RICH ECG ORDERABLES Final Res ult GEMUSE * Vascular US duplex lower extremity [...] Signed Date: 11/16/2024 08:34 ET Workstation ID: [id number] Transcribed By: Self Edit Transcribed Date: 11/16/2024 [...] Signed Date: 11/16/2024 08:34 ET Workstation ID: [id number] Transcribed By: Self Edit Transcribed Date: 11/16/2024 [...] Signed Date: 11/16/2024 08:27 ET Workstation ID: [id number] Transcribed By: Self Edit Transcribed Date: 11/16/2024 [...] Signed Date: 11/16/2024 08:27 ET Workstation ID: [id number] Transcribed By: Self Edit Transcribed Date: 11/16/2024 08:21 ET us Felix Rhdoes MD IMG CT PROCEDURES Final Result * XR Chest [...] Signed Date: 11/16/2024 08:21 ET Workstation ID: [id number] Transcribed By: Self Edit Transcribed Date: 11/16/2024 [...] Signed Date: 11/16/2024 08:21 ET Workstation ID: [id number] Transcribed By: Self Edit Transcribed Date: 11/16/2024 08:16 ET Felix Rhodes MD IMG XR PROCEDURES Final Result * Troponin I High Sensitivity (11/16/2024 5:32 AM EST) [facility] High Sensitivity Troponin I 30 <=79 ng/L LAB CHEMISTRY METHOD 11/16/2024 7:[address] [facility] Blood Venous blood specimen / Unknown Venipuncture / Unknown 11/16/2024 5:32 AM EST 11/16/2024 6:[address] [facility] - 11/16/2024 7:19 AM EST High levels of biotin in samples may falsely decrease hsTroponin values. ??Use caution when interpreting hsTroponin results in patients taking biotin who exhibit renal impairment (eGFR <60) or in patients taking more than 20 mg/day of biotin. us Felix Rhodes MD LAB BLOOD ORDERABLES Final Resu lt [facility] [address] [place] [address], * (ABNORMAL) CBC auto differential (11/16/2024 3:23 AM EST) [facility] WBC 7.6 4.8 - 10.8 K/mcL LAB HEMETOLOGY METHOD 11/16/2024 3:38 AM [facility] RBC 4.30(L) 4.50 - 5.50 M/mcL LAB HEMETOLOGY METHOD 11/16/2024 3:38 AM [facility] Hemoglobin 12.3(L) 13.5 - 17.5 g/dL LAB HEMETOLOGY METHOD 11/16/2024 3:38 AM [facility] Hematocrit 40.2(L) 42.0 - 54.0 % LAB HEMETOLOGY METHOD 11/16/2024 3:38 AM [facility] MCV 93.7 79.0 - 98.0 FL LAB HEMETOLOGY METHOD 11/16/2024 3:38 AM [facility] MCH 28.7 27.0 - 32.0 pcg LAB HEMETOLOGY METHOD 11/16/2024 3:38 AM [facility] MCHC 30.6(L) 32.0 - 37.0 g/dL LAB HEMETOLOGY METHOD 11/16/2024 3:38 AM [facility] RDW 13.2 11.0 - 15.0 % LAB HEMETOLOGY METHOD 11/16/2024 3:38 AM [facility] Platelets 226 130 - 400 K/mcL LAB HEMETOLOGY METHOD 11/16/2024 3:38 AM [facility] MPV 10.1 7.0 - 11.0 FL LAB HEMETOLOGY METHOD 11/16/2024 3:38 AM [facility] NRBC 0.0 <1.0 % LAB HEMETOLOGY METHOD 11/16/2024 3:38 AM [facility] NRBC Absolute 0.00 <0.10 K/mcL LAB HEMETOLOGY METHOD 11/16/2024 3:38 AM [facility] Neutrophils Relative 65.6 % LAB HEMETOLOGY METHOD 11/16/2024 3:38 AM [facility] Lymphocytes Relative 20.6 % LAB HEMETOLOGY METHOD 11/16/2024 3:38 AM [facility] Monocytes Relative 10.0 % LAB HEMETOLOGY METHOD 11/16/2024 3:38 AM [facility] Eosinophils Relative 3.0 % LAB HEMETOLOGY METHOD 11/16/2024 3:38 AM [facility] Basophils Relative 0.5 % LAB HEMETOLOGY METHOD 11/16/2024 3:38 AM [facility] Immature Granulocytes Relative 0.3 % LAB HEMETOLOGY METHOD 11/16/2024 3:38 AM [facility] Neutrophils Absolute 4.98 1.50 - 7.00 K/mcL LAB HEMETOLOGY METHOD 11/16/2024 3:38 AM [facility] Lymphocytes Absolute 1.56 1.00 - 5.00 K/mcL LAB HEMETOLOGY METHOD 11/16/2024 3:38 AM [facility] Monocytes Absolute 0.76 0.20 - 1.00 K/mcL LAB HEMETOLOGY METHOD 11/16/2024 3:38 AM [facility] Eosinophils Absolute 0.23 0.00 - 0.50 K/mcL LAB HEMETOLOGY METHOD 11/16/2024 3:38 AM [facility] Basophils Absolute 0.04 0.00 - 0.20 K/mcL LAB HEMETOLOGY METHOD 11/16/2024 3:38 AM [facility] Immature Granulocytes Absolute 0.02 0.00 - 0.03 K/mcL LAB HEMETOLOGY METHOD 11/16/2024 3:38 AM [facility] Blood Venous blood specimen / Unknown Venipuncture / Unknown 11/16/2024 3:23 AM EST 11/16/2024 3:31 AM EST us Felix Rhodes MD LAB BLOOD ORDERABLES Final Resu lt [facility] [address] [place] [address], * (ABNORMAL) B-type natriuretic peptide (11/16/2024 3:23 AM EST) BNP 332(H) <=100 pcg/mL LAB CHEMISTRY METHOD 11/16/2024 4:[address] [facility] Blood Venous blood specimen / Unknown Venipuncture / Unknown 11/16/2024 3:23 AM EST 11/16/2024 3:31 AM EST Felix Rhodes MD LAB BLOOD ORDERABLES Final Resu lt Performing Organization Address [facility]/ZIP Co de Phone Number [facility] [address] [place] [address], [place] [phone] * Basic metabolic panel (11/16/2024 3:23 AM EST) Pathologist [facility] Sodium 139 133 - 145 mmol/L LAB CHEMISTRY METHOD 11/16/2024 4:18 AM [facility] Potassium 4.5 3.5 - 5.5 mmol/L LAB CHEMISTRY METHOD 11/16/2024 4:18 AM [facility] Chloride 104 96 - 110 mmol/L LAB CHEMISTRY METHOD 11/16/2024 4:18 AM [facility] CO2 31 21 - 32 mmol/L LAB CHEMISTRY METHOD 11/16/2024 4:18 AM [facility] Anion Gap 4 3 - 11 LAB CHEMISTRY METHOD 11/16/2024 4:18 AM [facility] Glucose 97 70 - 100 mg/dL LAB CHEMISTRY METHOD 11/16/2024 4:18 AM [facility] BUN 15 5 - 25 mg/dL LAB CHEMISTRY METHOD 11/16/2024 4:18 AM [facility] Creatinine 0.98 0.70 - 1.30 mg/dL LAB CHEMISTRY METHOD 11/16/2024 4:[address] [facility] eGFR 83 >=60 mL/min/1. 73m2 LAB CHEMISTRY METHOD 11/16/2024 4:[address] [facility] Comment:Calculation based on the??Chronic Kidney Disease Epidemiology Collaboration (CKD-EPI) equation refit??without adjustment for race. BUN/Creatinine Ratio 15.3 LAB CHEMISTRY METHOD 11/16/2024 4:[address] [facility] Calcium 8.7 8.5 - 10.5 mg/dL LAB CHEMISTRY METHOD 11/16/2024 4:18 AM [facility] Blood Venous blood specimen / Unknown Venipuncture / Unknown 11/16/2024 3:23 AM EST 11/16/2024 3:31 AM EST Felix Rhodes MD LAB BLOOD ORDERABLES Final Resu lt [facility] [address] [place] [address], * ECG-Annotated (11/16/2024) us Provider Onbase ECG ORDERABLES Final Result documented in this encounter Visit Diagnoses Diagnosis New onset of congestive heart failure (CMS/HCC)- Primary Bilateral leg edema Edema New onset of congestive heart failure (CMS/HCC) documented in this encounter Admitting Diagnoses Diagnosis New onset of congestive heart failure (CMS/HCC) documented in this encounter Administered Medications Inactive Administered Medications - up to 3 most recent administrations Medication Order MAR Action Action Date Dose Rate Site acetaminophen (TYLENOL) tablet 650 mg 650 mg, oral, Every 6 hours PRN, mild pain, Starting on 11/16/24 at 1700 Given 11/17/2024 9:52 AM EST 650 mg Given 11/17/2024 4:08 AM EST 650 mg Given 11/16/2024 5:09 PM EST 650 mg furosemide (LASIX) injection 40 mg 40 mg, intravenous, Once, On 11/16/24 at 1000, For 1 dose Given 11/16/2024 10:23 AM EST 40 mg furosemide (LASIX) injection 40 mg 40 mg, intravenous, 2 times daily before meals, First dose on Sun11/16/24 at 1630, On hold since Sun11/17/2024 at 0737 until manually unheld Given 11/17/2024 6:46 AM EST 40 mg Given 11/16/2024 5:08 PM EST 40 mg hydrALAZINE (APRESOLINE) tablet 10 mg 10 mg, oral, Once, On Sun11/16/24 at 0511, For 1 dose Given 11/16/2024 5:23 AM EST 10 mg iopamidoL (ISOVUE-370) 370 mg iodine /mL (76 %) injection 90 mL 90 mL, intravenous, Once in imaging, Starting on Sun11/16/24 at 0647, For 1 dose Given 11/16/2024 6:53 AM EST 90 mL labetalol (NORMODYNE) injection 10 mg 10 mg, intravenous, Once, On Sun11/16/24 at 0643, For 1 dose, May administer undiluted over 2 minutes; maximum: 10 mg/minute. Given 11/16/2024 7:05 AM EST 10 mg lisinopriL (PRINIVIL,ZESTRIL) tablet 10 mg 10 mg, oral, Once, On Sun11/16/24 at 0511, For 1 dose Given 11/16/2024 5:23 AM EST 10 mg losartan (COZAAR) tablet 25 mg 25 mg, oral, Daily, First dose on Sun11/17/24 at 0900 Given 11/17/2024 9:48 AM EST 25 mg nitroglycerin (NITRO-BID) 2 % ointment 1 inch 1 inch, Topical, Every 6 hours scheduled, First dose on Sun11/16/24 at 1200 Given 11/17/2024 6:46 AM EST 1 inch Given 11/16/2024 11:35 PM EST 1 inch Given 11/16/2024 5:08 PM EST 1 inch ondansetron (PF) (ZOFRAN) injection 4 mg 4 mg, intravenous, Every 8 hours PRN, vomiting, nausea, Starting on Sun11/16/24 at 1044, -ONLY give IV if patient is unable to take orally. -If inadequate response within 30 minutes, proceed to next-line agent or contact provider if no further options ordered. ondansetron ODT (ZOFRAN-ODT) disintegrating tablet 4 mg 4 mg, oral, Every 8 hours PRN, vomiting, nausea, Starting on 11/16/24 at 1044, -Give IV if patient is unable to take orally. -If inadequate response within 30 minutes, proceed to next-line agent or contact provider if no further options ordered. For ODT tablets: -Do not remove from blister pack until just before administering. -Patient should allow tablet to dissolve on tongue. perflutren lipid microsphere (DEFINITY) 1.3 mL in sodium chloride 0.9% 8.7 mL injection 10 mL, intravenous, Administer over 10 Minutes, Once in imaging, Starting on 11/16/24 at 1052, For 1 dose, CV Medication Orders sodium chloride 0.9 % flush 10 mL 10 mL, intravenous, Once, On 11/16/24 at 0648, For 1 dose Given 11/16/2024 6:53 AM EST 10 mL documented in this encounter Active and Recently Administered Medications Times are shown in EST. Scheduled Medication Order 11/15/2024 11/16/2024 11/17/2024 furosemide (LASIX) injection 40 mg (COMPLETED) 40 mg, intravenous, Once, On 11/16/24 at 1000, For 1 dose 1023 (Given - Provider: Kamryn Hart RN) furosemide (LASIX) injection 40 mg 40 mg, intravenous, 2 times daily before meals, First dose on 11/16/24 at 1630, On hold since Sun11/17/2024 at 0737 until manually unheld 1708 (Given - Provider: Betzy Clements RN) 0646 (Given - Provider: Gonzalez White, VICTOR HUGO)0737 (Held by provider - Provider: HILARIO Escamilla - Reason: Other)1630 (Dose Auto Held - Provider: HILARIO Escamilla)1928 (Unheld by provider - Provider: Automatic Discharge Provider) hydrALAZINE (APRESOLINE) tablet 10 mg (COMPLETED) 10 mg, oral, Once, On 11/16/24 at 0511, For 1 dose 0523 (Given - Provider: Tony Larson RN) iopamidoL (ISOVUE-370) 370 mg iodine /mL (76 %) injection 90 mL (COMPLETED) 90 mL, intravenous, Once in imaging, Starting on 11/16/24 at 0647, For 1 dose 0653 (Given - Provider: Priti Henriquez) labetalol (NORMODYNE) injection 10 mg (COMPLETED) 10 mg, intravenous, Once, On 11/16/24 at 0643, For 1 dose, May administer undiluted over 2 minutes; maximum: 10 mg/minute. 0705 (Given - Provider: Tony Larson, VICTOR HUGO) lisinopriL (PRINIVIL,ZESTRIL) tablet 10 mg (COMPLETED) 10 mg, oral, Once, On 11/16/24 at 0511, For 1 dose 0523 (Given - Provider: Tony Larson, VICTOR HUGO) losartan (COZAAR) tablet 25 mg 25 mg, oral, Daily, First dose on Sun11/17/24 at 0900 0948 (Given - Provid er: Jo Washburn RN) nitroglycerin (NITRO-BID) 2 % ointment 1 inch (CANCELED) 1 inch, Topical, Every 6 hours scheduled, First dose on 11/16/24 at 1200 1101 (Given - Provider: Kamryn Hart RN)1708 (Given - Provider: Betzy Clements, VICTOR HUGO)2335 (Given - Provider: Gonzalez White, VICTOR HUGO) 0646 (Given - Provider: Gonzalez White, VICTOR HUGO) perflutren lipid microsphere (DEFINITY) 1.3 mL in sodium chloride 0.9% 8.7 mL injection 10 mL, intravenous, Administer over 10 Minutes, Once in imaging, Starting on 11/16/24 at 1052, For 1 dose, CV Medication Orders sodium chloride 0.9 % flush 10 mL (COMPLETED) 10 mL, intravenous, Once, On 11/16/24 at 0648, For 1 dose 0653 (Given - Provider: Priti Henriquez) PRN Medication Order 11/15/2024 11/16/2024 11/17/2024 acetaminophen (TYLENOL) tablet 650 mg 650 mg, oral, Every 6 hours PRN, mild pain, Starting on 11/16/24 at 1700 1709 (Given - Provider: Betzy Clements, VICTOR HUGO) 0408 (Given - Provider: Gonzalez White, RN)0936 (Given - Provider: Jo Washburn, VICTOR HUGO) ondansetron (PF) (ZOFRAN) injection 4 mg(Linked Group 1) 4 mg, intravenous, Every 8 hours PRN, vomiting, nausea, Starting on 11/16/24 at 1044, -ONLY give IV if patient is unable to take orally. -If inadequate response within 30 minutes, proceed to next-line agent or contact provider if no further options ordered. ondansetron ODT (ZOFRAN-ODT) disintegrating tablet 4 mg(Linked Group 1) 4 mg, oral, Every 8 hours PRN, vomiting, nausea, Starting on 11/16/24 at 1044, -Give IV if patient is unable to take orally. -If inadequate response within 30 minutes, proceed to next-line agent or contact provider if no further options ordered. For ODT tablets: -Do not remove from blister pack until just before administering. -Patient should allow tablet to dissolve on tongue. Linked Groups Order Group 1: ondansetron ODT (ZOFRAN-ODT) disintegrating tablet 4 mgJump to med 4 mg, oral, Every 8 hours PRN, vomiting, nausea, Starting on 11/16/24 at 1044, -Give IV if patient is unable to take orally. -If inadequate response within 30 minutes, proceed to next-line agent or contact provider if no further options ordered. For ODT tablets: -Do not remove from blister pack until just before administering. -Patient should allow tablet to dissolve on tongue. Or ondansetron (PF) (ZOFRAN) injection 4 mgJump to med 4 mg, intravenous, Every 8 hours PRN, vomiting, nausea, Starting on 11/16/24 at 1044, -ONLY give IV if patient is unable to take orally. -If inadequate response within 30 minutes, proceed to next-line agent or contact provider if no further options ordered. documented in this encounter Orders Medications Ordered That Corky ht Not Have Been Administered Count Last Ordered Date First Ordered Date lisinopriL (PRINIVIL,ZESTRIL) tablet 10 mg 1 11/17/2024 ondansetron (PF) (ZOFRAN) injection 4 mg 1 11/16/2024 ondansetron ODT (ZOFRAN-ODT) disintegrating tablet 4 mg 1 11/16/2024 perflutren lipid microsphere (DEFINITY) 1.3 mL in sodium chloride 0.9% 8.7 mL injection 1 11/16/2024 EKG Orders Without Results Count Last Ordered D ate First Ordered Date ECG 12-LEAD 1 11/16/2024 Nursing Count Last Ordered Date First Orde red Date FOLLOW UP WITH PROVIDER 2 11/17/2024 IV Count Last Ordered Date First Orde red Date INSERT PERIPHERAL IV 1 11/16/2024 Admission Count Last Ordered Date First Orde red Date ADMIT TO INPATIENT 1 11/16/2024 Transfer Count Last Ordered Date First Orde red Date ED TO FLOOR BED REQUEST 1 11/16/2024 Discharge Count Last Ordered Date First Orde red Date DISCHARGE PATIENT 1 11/17/2024 documented in this encounter Additional Health Concerns Infection Onset Date Last Indicated Resolved Time Respiratory Rule-Out 11/17/2024 11/17/2024 025 1:46 PM EST COVID-19 Rule-Out 11/17/2024 11/17/2024 11/17/2024 1:46 PM EST documented as of this encounter Care Teams Hydrotel Operator Relationship Specialty Start Date End Date Marta Johnson MD [address] [place] [phone] PCP - General Internal Medicine 11/17/24 documented as of this encounter
--- OUTSIDE RECORDS SUMMARY | 2024-12-09 19:15 | XMS_ITS | Encounter Summary ---
Author Organization [facility] Address [address] 7 [place] [address] Care Team Providers Care Banking Services Clerk Name Role Phone Marta Johnson MD Primary Care Provider + Encounter Details Date Type Department Care Team (Late st Contact Info) Description 07/04/2024 Orders Only [facility] [address] [place], [place] [phone] Marta Johnson MD [address] [place], [place] [phone] Positive TB test (Primary Dx) Social History Tobacco Use Types Packs/Day Years Used Date Smoking Tobacco: Never Passive Smoke Exposure: Never Smokeless Tobacco: Never Alcohol Use Standard Drinks/Week Comments Never 0 (1 standard drink = 0.6 oz pur e alcohol) Depression Answer Date Recorded Patient Health Questionnaire-9 Score 5 05/30/2024 Patient Health Questionnaire-9 Score 5 05/30/2024 Last PHQ-9: Questionnaire Data Not on file 0 05/30/2024 Depression Answer Date Recorded Patient Health Questionnaire-2 Score 2 05/30/2024 Sex and Gender Information Value Date Recorded Sex Assigned at Male 01/09/2024 3:57 PM EDT Legal Sex Male 3:36 PM EST Gender Identity Male 01/09/2024 3:57 PM EDT Sexual Orientation Straight 01/09/2024 3: 57 PM EDT documented as of this encounter Miscellaneous Notes * Result Encounter Note - Marta Johnson MD - 07/04/2024 1:37 PM EDT Patient has Pos TPA, Awaiting to hear from [facility] re previous rx. * Result Encounter Note - Marta Johnson MD - 07/04/2024 1:37 PM EDT CXR on 07/17 is Neg, will address latent TB at upcoming appt, he missed last week's appt with me. Labs need to be addressed as well. documented in this encounter Plan of Treatment Not on file documented as of this encounter Procedures Procedure Name Priority Date/Time Associated Diagnosis Comments XR CHEST 2 VIEWS Routine 07/17/2024 1:46 PM EDT Positive TB test CONFIRMATORY SYPHILIS PROFILE Routine 07/04/2024 1:00 PM EDT Positive TB test documented in this encounter Results * XR Chest 2 Views (07/17/2024 1:46 PM EDT) Anatomical Region Laterality Modality Chest Radiographic Myra ging 07/17/2024 1:46 PM EDT Narrative 07/17/2024 3:05 PM EDT ?[facility] ?[address] ?[place] [address] ?XRay Report ? Signed ? Patient: Chowdhury Fuentes,Meet ?MR#: M ?? [id number] ? : 1955 ?Acct:[id number] ? Age/Sex: 69 / M ?ADM Date: 07/17/24 ? Loc: HO.HHCX ? Attending Dr: Marta Johnson MD ? Ordering Physician: Marta Johnson MD ?? Date of Service: 07/17/24 ?? Procedure(s): XR chest 2V ?? Accession Number(s): [id number] ? cc: Marta Johnson MD ? EXAMINATION: ?? XR CHEST ? CLINICAL INFORMATION: ?? Positive TB test, asymptomatic ? COMPARISON: ?? None available. ? TECHNIQUE: ?? 2 views of the chest were obtained. ? FINDINGS: ?? The aorta is ectatic and unfolded. There is an old healed fracture of ?? the right posterior fourth rib. Otherwise, no significant abnormality ?? is noted involving the heart, lungs, mediastinum, bony thorax or soft ?? tissues. ? XR/XR chest 2V ?? IMPRESSION: ?? No evidence of active pulmonary disease. ? Electronically signed by: ??Aba Pierce MD ??07/17/2024 03:02 PM EDT ?? RP ? Dictated By: ?Aba Pierce MD ? Signed By: ?<Electronically signed by Aba Pierce MD in OV> ? 07/17/24 1502 ? DD/ 1346 ? TD/TT: 07/17/24 1358 ? Social Services Technician: SS ? Procedure Note Donramírez, Image - 07/17/[address] [address] XRay Report Signed Patient: Anurag Rebolledo#: M [id number] : 4Acct:[id number] Age/Sex: 69 / MADM Date: 07/17/24 Loc: HO.HHCX Attending Dr: Marta Johnson MD Ordering Physician: Marta Johnson MD Date of Service: 07/17/24 Procedure(s): XR chest 2V Accession Number(s): [id number] cc: Marta Johnson MD EXAMINATION: XR CHEST CLINICAL INFORMATION: Positive TB test, asymptomatic COMPARISON: None available. TECHNIQUE: 2 views of the chest were obtained. FINDINGS: The aorta is ectatic and unfolded. There is an old healed fracture of the right posterior fourth rib. Otherwise, no significant abnormality is noted involving the heart, lungs, mediastinum, bony thorax or soft tissues. XR/XR chest 2V IMPRESSION: No evidence of active pulmonary disease. Electronically signed by: Aba Pierce MD 07/17/2024 03:02 PM EDT Dictated By: Aba Pierce MD Signed By: <Electronically signed by Aba Pierce MD in OV> 07/17/24 1502 DD/ 1346 TD/TT: 07/17/24 1358 Social Services Technician: JAX us Marta Johnson MD IMG XR PROCEDURES Final Result * (ABNORMAL) Confirmatory Syphilis Profile (07/04/2024 1:00 PM EDT) Rapid Plasma Reagin, Quant Reactive 1:2(A) Nonreactive [facility] Treponema pallidum Antibody, Particle Agglutination Reactive(A) Nonreactive [facility] 07/04/2024 1:00 PM EDT 07/04/2024 6:13 PM EDT us Marta Johnson MD LAB BLOOD ORDERABLES Fin al Result [facility] [address] [place] [phone] documented in this encounter Visit Diagnoses Diagnosis Positive TB test- Primary documented in this encounter Additional Health Concerns Assessment Noted Time PHQ-9 Depression Total Score: 5 05/30/20 24 1:30 PM EDT documented as of this encounter Care Teams Banking Services Clerk Relationship Specialty Start Date End Date Marta Johnson MD [address] [place] [phone] PCP - General Internal Medicine 06/27/24 documented as of this encounter
--- OUTSIDE RECORDS SUMMARY | 2024-12-09 19:15 | XMS_ITS | Clinical Summary ---
Author Organization [employer] Address [address] [facility] 7[address] [place] [address] Care Team Providers Care Reed Dipper Name Role Phone Marta Johnson MD Primary Care Provider + Allergies No known active allergies Medications * This document contains information received from the source organization and may not represent a complete record from that organization. Blood Pressure Monitoring (Blood Pressure Cuff) misc Use daily as prescribed 1 each 08/06/20 24 Active dorzolamide-ti molol (Cosopt) 2-0.5 % ophthalmic solutionIndica tions:Primary open angle glaucoma of both eyes, unspecified glaucoma stage Administer 1 drop into both eyes 2 times daily. 10 mL 5 08/29/20 24 025 Active latanoprost (Xalatan) 0.005 % ophthalmic solutionIndica tions:Primary open angle glaucoma of both eyes, unspecified glaucoma stage Administer 1 drop into both eyes at bedtime. 2.5 mL 5 09/23/20 24 025 Active aspirin 81 MG EC tablet Take 81 mg by mouth Once per day. 11/17/19 25 025 Active furosemide (Lasix) 20 MG tablet Take 1 tablet (20 mg) by mouth Once per day. 90 tablet 1 12/09/19 25 Active losartan (Cozaar) 50 MG tablet Take 1 tablet (50 mg) by mouth Once per day. 90 tablet 1 12/09/19 25 Active metoprolol tartrate (Lopressor) 25 MG tablet Take 0.5 tablets (12.5 mg) by mouth 2 times daily. 90 tablet 1 12/09/19 25 Active ergocalciferol (Vitamin D2) 1.25 MG (91888 UT) capsule Take 1 capsule (1.25 mg) by mouth 1 (one) time per week. 12 capsule 12/09/19 25 025 Active lisinopril (Prinivil) 10 MG tablet Take 1 tablet (10 mg) by mouth Once per day. 90 tablet 1 08/06/20 24 Discontinued(In effective) furosemide (Lasix) 20 MG tablet Take 20 mg by mouth Once per day. Discontinued(Re order (will not trigger notification to Pharmacy)) losartan (Cozaar) 25 MG tablet Take 25 mg by mouth Once per day. Discontinued(Re order (will not trigger notification to Pharmacy)) Active Problems Problem Noted Date Diagnosed Date Systolic congestive heart failure 12/09/2024 Assessment & Plan (12/09/2024 4:52 PM EST): S/P hospital discharge, continue Lasix, increase Losartan to 50 mg and start Metoprolol 12.5 mg BID. I discussed with pt and Tiffanie madrid, to FU with cardiology with Dr. Polanco. Infrarenal abdominal aortic aneurysm (AAA) witho ut rupture 12/09/2024 Assessment & Plan (12/09/2024 4:53 PM EST): Discussed with pt and Tiffanie madrid, to r/s appointment with vascular surgeon Dr. Zelaya. Edema of knee 12/09/2024 Assessment & Plan (12/09/2024 4:54 PM EST): S/P fall, most likely synovial effusion. Advised to keep leg elevated and put ice to affected area and avoid weight bearing on left side, continue using crutches. Use Tylenol and order XR, will fu after XR results. Varicose veins of both lower extremities with pa in 12/09/2024 Assessment & Plan (12/09/2024 4:54 PM EST): Refer to vascular surgeon. Overweight 09/10/2024 Assessment & Plan (09/10/2024 2:43 PM EST): Discussed re weight reduction options including exercise, life style modifications Recommended to decrease soda and sugary beverage consumption, increase protein intake with meals (at least 1 portion of protein with each meal) to assist with satiety, increase dietary fiber Recommended at least 150 min/week of moderate intensity exercise. Syphilis in male 08/06/2024 Assessment & Plan (12/09/2024 4:55 PM EST): S/P Penicillin treatment last year in June of 2024, FU titers. Discussed with pt regarding STI prevention, use of condoms, he agreed to referral to STI clinic for PrEP. Assessment & Plan (09/10/2024 2:40 PM EST): Treated with PCN x 3 doses, doing well , tolerated well. Declined further STI testing today (NG/CT not done ). Advised to use condoms at tall time, specially if partner hasn't gotten tested. I told him that he can coem with her so I can explain any question. 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 Will do TPA as needed. Repeat STI testing in Advised to use condom at all times until his partner gets tested and treated. I told him to let his previous partner of 3y ago re POS result. Will order echocardiogram to evaluate for typical cardiac compromise. I will hold off on this testing until other social issues are resolved. Housing instability 08/06/2024 Assessment & Plan (09/10/2024 2:43 PM EST): Seen by CM, he feels safer at home now but will be looking in to new apartments. I will ask CM to fu with him in few weeks. Assessment & Plan (08/06/2024 4:06 PM EDT): Expresses desire to move to a different housing arrangement, he's aware that he will need to work out an income, arrange his residency status. Will refer to CM to support him on this, may need to look for legal services manager at [employer] so they help him with his residency status etc. Severe depression 08/05/2024 Assessment & Plan (09/10/2024 3:48 PM EST): During IBH Consult Meet presenting with depressed mood, Tearful, hopelessness, irritable mood, loss of interests/pleasure , sense of isolation/loneliness , isolating, change in appetite or weight reduce appetite, changes in sleep difficulty falling asleep, psychomotor retardation, fatigue/loss of energy, worthlessness, inappropriate/excessive guilt , difficulty concentrating; for a period of 18+ mo, for most or all symptoms in the context of family issues, financial concern, and housing. Pt reported struggling managing sxs. His depression is associated with housing insecurity and his medical condition. He was homeless in the past; currently living at a friend's house but reports the dynamics are stressful and a trigger for his sxs. Pt moved from [place] two years ago hoping to have more job opportunities. Has a sister who is positive social support but lives in [place]. clinician provided a safe space for pt to share his emotions and concerns. Pt was previously connected with but lost appointment. He will reach out to hospice care consultant and seek out for additional support regarding housing. Pt declines prison resources at this time. Reviewed and assessed for risk, current stressors and protective factors using open-ended questions. Pt is currently on wait list for psychiatry services and OP therapy with [facility]. Assessment & Plan (09/10/2024 2:41 PM EST): He's doing better, he will be seen by counselor today Awaiting appt to see psychiatry. Assessment & Plan (08/06/2024 4:03 PM EDT): He seems to feel better, feels safe re SI and is able to reach out for safety, he has crisis number or will coem to [facility] I advised re avoiding recreational substances including THC, he agreed to cut down to off. will fu with him as recommended. 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 The test could be related to his previous BCG vaccination as a child in [place]. I do not think there is a need for INH prophylaxis We'll fu in 1y. Assessment & Plan (08/06/2024 4:02 PM EDT): Neg CXR, hx BCG No INH prophylaxis for now. Will ask ID re need for further w/u Essential hypertension 05/30/2024 Assessment & Plan (12/09/2024 4:51 PM EST): Uncontrolled, unclear about compliance, I will refer to med boxes. DC Lisinopril and increase Losartan to 50 mg, check BMP. Continue Lasix and add Metoprolol 12.5 mg BID. FU with me in 6 weeks. Assessment & Plan (09/10/2024 2:38 PM EST): It may be uncontrolled, we discussed w patient re checking BP at home and fu with me in 3-4w to adjust meds if needed. Continue lisinopril 10mg for now Counseled re low salt diet/increase moderate physical activity. Check home BP BIW and prn CP/MEYER/LOMBARDI Advised to quit smoking Assessment & Plan (08/06/2024 3:54 PM EDT): New onset Start Lisinopril 10mg and fu with me in 4w Counseled re low salt diet/increase moderate physical activity. Check home BP BIW and prn CP/MEYER/LOMBARDI Non smoking patient. Will order BMP in 4w Assessment & Plan (05/30/2024 1:53 PM EDT): Probably new Dx, may need medications. Advised to do low sodium diet, advised to go to ED if he feels chest pain, SOB, or weakness. Follow up in 3 weeks. Umbilical hernia without obstruction and without gangrene 05/30/2024 Assessment & Plan (05/30/2024 1:53 PM EDT): Watchful waiting, reassurance and indications to go to ED if there is change in color of the hernia or severe pain. Follow up on next visit. Visit for preventive health examination 05/30/20 24 Assessment & Plan (05/30/2024 1:56 PM EDT): Discussed with patient re increase fresh fruit and vegetable intake. Counseled re moderate exercise as tolerated, up to 20min/d Patient does not feel safe at home. Eye exam: Overdue, will refer to Ophthalmology, may need to get exam within next 2-3 months max. CRC screen: Overdue, will address at next visit. Lipids/FBS: To be Ordered. Vaccinations: None, ordered Vax Titers. Declined Immunizations today. Dental visit : Overdue, I gave him information about dental clinics in the area. Closed left ankle fracture 03/27/2024 Encounters * This document contains information received from the source organization and may not represent a complete record from that organization. Date Type Department Care Team Description 12/09/2024 1:45 PM EST Office Visit [facility] [address] [place] [phone] Marta Johnson MD Essential hypertension (Primary Dx); Syphilis in male; Systolic congestive heart failure, unspecified HF chronicity (CMS/HCC); Infrarenal abdominal aortic aneurysm (AAA) without rupture (CMS/HCC); Edema of knee; Varicose veins of both lower extremities with pain 12/09/2024 Travel 12/03/[address] [facility] [address] [place] [address] Marta Johnson MD Chart prep 11/26/[address] [facility] [address] [place] [phone] Chantelle Cerda RN 11/26/[address] [facility] [address] [place] [address] Marta Johnson MD 11/25/2024 Orders Only [place] [facility] [address] [place] [address] Huber Mckeon MD 10/20/2024 1:45 PM EST Office Visit [facility] [address] [place] [phone] Haley Gamboa, OD Primary open angle glaucoma of both eyes, unspecified glaucoma stage (Primary Dx) 10/20/2024 Travel 10/20/[address] [facility] [address] [place] [address] KarineHaley vargas, OD 09/30/[address] [facility] [address] [place] [address] Marta Johnson MD November recall 09/23/2024 2:30 PM EST Office Visit [facility] [address] [place] [address] KarinealiciaHaley, OD Primary open angle glaucoma of both eyes, unspecified glaucoma stage (Primary Dx); Combined forms of age-related cataract of both eyes 09/23/2024 Travel 09/10/2024 10:00 AM EST Office Visit [facility] [address] [place] [address] Marta Johnson MD Essential hypertension (Primary Dx); Severe depression (CMS/HCC); Positive TB test; Housing instability; Syphilis in male; Overweight; Dietary counseling; Exercise counseling 09/10/2024 Travel 09/09/[address] [facility] [address] [place], [place] [phone] Palma Chatterjee MA Chart prep from Last 3 Months Social History Tobacco Use Types Packs/Day Years [...] Orientation Straight 01/09/2024 3: 57 PM EDT Last Filed Vital Signs Vital Sign Reading Time Taken Comments Blood Pressure 156/101 12/09/2024 2:04 PM EST Pulse 90 12/09/2024 2:04 PM EST Temperature 35.7 ??C (96.3 ??F) 12/09/2024 2:04 PM ES T Respiratory Rate 20 08/06/2024 3:03 PM EDT Oxygen Saturation 98% 12/09/2024 2:04 PM EST Inhaled Oxygen Concentration - - Weight 82.8 kg (182 lb 8 oz) 12/09/2024 2:04 PM EST Height 172.7 cm (5' 8 ) 12/09/2024 2:04 PM EST Body Mass Index 27.75 12/09/2024 2:04 PM EST Plan of Treatment Health Maintenance Due Date Last Done Comments CT Colonography 1955 Colonoscopy 1955 Colorectal Cancer Screening 1954 Dental Oral Exam 1954 Dental Prophylaxis 1954 Dental X-Ray: Bitewings 1954 Dental X-Ray: Full Mouth 1954 FIT DNA/Cologuard 1954 FIT 1954 FOBT 1954 SDOH Screening 1954 Sigmoidoscopy 1954 DTaP/Tdap/Td Vaccines (1 - Tdap) 1973 Pneumococcal Vaccine: 50+ Years (1 of 2 - PCV) 1973 Zoster Vaccines (1 of 2) 2004 RSV Patients and Patients Aged 60 years or older (1 - Risk 60-74 years 1-dose series) 2014 COVID-19 Vaccine (1 - 2023-2 5 season) 2024 Influenza Vaccine (#1) 2024 Depression Monitoring (PHQ-9) 03/10/2025, 09/10/2024 Alcohol/Substance Use Screening 05/30/2025 05/30/2024 Depression Screening 09/10/2025 09/10/2024, 09/10/2024 Tobacco Screening 12/09/2025 12/09/2024 Lipid Panel 07/04/2029 07/04/2024 Hepatitis C Screening Completed 07/04/2024 HIB Vaccines Aged Out No longer eligi [...] patient's age to complete this topic Meningococcal Vaccine Aged Out No miranda gissel eligible based on patient's age to complete this topic RSV under 20 months Aged Out No longe r eligible based on patient's age to complete this topic Rotavirus Vaccines Aged Out No longer eligible based on patient's age to complete this topic Procedures Procedure Name Priority Date/Time Associated Diagnosis Comments XR KNEE 4+ VIEWS LEFT Routine 12/09/2024 3:26 PM EST Edema of knee CT ABDOMEN PELVIS W CONTRAST Routine 11/16/2024 9:28 AM EST AUTOMATED VISUAL FIELD, EXTENDED - OD - RIGHT EYE Routine 10/20/2024 1:45 PM EST Primary open angle glaucoma of both eyes, unspecified glaucoma stage HEPATITIS PANEL, GENERAL Routine 07/04/2024 1:00 PM EDT Visit for preventive health examination LIPID PANEL WITH REFLEX TO DIRECT LDL Routine 07/04/2024 1:00 PM EDT Essential hypertension from Last 3 Months or Most Recently Relevant to Health Maintenance Results * XR Knee 4+ Views Left (12/09/2024 3:26 PM EST) Anatomical Region Laterality Modality Lower Extremities, Knee Left [facility] 12/09/2024 3:26 PM EST Narrative 12/09/2024 4:22 PM EST ?[facility] ?[address] ?[place] [address] ?XRay Report ? Signed ? Patient: Chowdhury Fuentes,Meet ?MR#: M ?? [id number] ? : 1955 ?Acct:[id number] ? Age/Sex: 69 / M ?ADM Date: 02/25/25 ? Loc: HO.HHCX ? Attending Dr: Marta Johnson MD ? Ordering Physician: Marta Johnson MD ?? Date of Service: 12/09/24 ?? Procedure(s): XR knee LT 4V ?? Accession Number(s): [id number] ? cc: Marta Johnson MD ? EXAMINATION: [...] DD/ 1526 ? TD/TT: 12/09/24 1550 ? Phone Operator: ? Procedure Note Alisha Smith - 12/09/2024 [facility] [address] [place] [address] XRay Report Signed Patient: Nae RebolledoMalachi#: M [id number] : 4Acct:[id number] Age/Sex: 69 / MADM Date: 12/09/24 Loc: HO.HHCX Attending Dr: Marta Johnson MD Ordering Physician: Marta Johnson MD Date of Service: 12/09/24 Procedure(s): XR knee LT 4V Accession Number(s): [id number] cc: Marta Johnson MD EXAMINATION: XR KNEE, [...] by: Jorge Carney MD 12/09/2024 04:19 PM EST Dictated By: Jorge Carney MD Signed By: <Electronically signed by Jorge Carney MD in OV> 12/09/24 1619 DD/ 1526 TD/TT: 12/09/24 1550 Phone Operator: us Marta Johnson MD IMG XR PROCEDURES Final Result * CT Abdomen Pelvis w/ Contrast (11/16/2024 9:28 AM EST) Anatomical Region Laterality Modality Body, Pelvis, Abdomen Computed T omography us Historical Provider IMRayne CT PROCEDURES Final R esult * Automated Visual Field, Extended - OD - Right Eye (10/20/2024 1:45 PM EST) Narrative Haley Gamboa, OD - 10/21/2024 11:34 AM EST VISUAL FIELD INTERPRETATION Reason for testing: Reliability: OD: _Reliable_ (FP: 14% , FN: 0% ) OS: N/A Statistical Indices: OD: MD: ??-0.4 dB, PSD: 3.0 dB OS: N/A Impression: OD: Superior arcuate defect corresponding to area of thinning inferiorly on RNFL and ganglion cell layer (GCL) scans OS: N/A Management Plan: Refer to automotive alignment specialist. us Haley Gamboa OD OPHTH VISUAL FIELD Final Result * (ABNORMAL) Lipid Panel with Reflex to Direct LDL (07/04/2024 1:00 PM EDT) Triglycerides 124 <150 mg/dL [facility] Comment:Desirable Triglyceri de: less than 150 mg/dLBorderline High Triglyceride 150-199 mg/dLHigh Triglyceride: 200-499 mg/dLVery High Triglyceride: greater than or equal to 5OO mg/dL Cholesterol 230(H) <200 mg/dL [facility] Comment:Desirable Cholestero l: less than 200 mg/dLBorderline High Cholesterol: 200-239 mg/dLHigh Cholesterol: greater than 239 mg/dL LDL Cholesterol Calculated 157(H) <100 mg/dL [facility] Comment:Desirable LDL: less than 100 mg/dLNear Optimal/Above Optimal LDL: 110- 129 mg/dLBorderline High LDL: 130-159 mg/dLHigh LDL: 160-189 mg/dLVery High LDL: greater than or equal to 190 mg/dL HDL Cholesterol 49 >40 mg/dL [facility] Comment:Desirable HDL: great er than 40 mg/dL Note: This HDL assay may give artificially low results in patients with liver disease. Blood 07/04/2024 1:00 PM EDT 07/04/2024 4:17 PM EDT us Marta Johnson MD LAB BLOOD ORDERABLES Fin al Result [facility] [address] [place] [phone] * Hepatitis Panel, General (07/04/2024 1:00 PM EDT) Hepatitis A IgM Nonreactive Nonreactive [facility] Comment:IgM antibodies to MEYER V not detected; does not exclude earlyacute or recovered HAV infection. ~Hepatitis B Surface Antibody REACTIVE Nonreactive [facility] Comment:REACTIVE: > 11.99 mI U/mL Hepatitis B Core Antibody Reactive Nonreactive [facility] Comment:Presumptive evidence of anti-HBc. Hepatitis C Antibody Nonreactive Nonreactive [facility] Comment:Antibodies to HCV no t detected; does not exclude early acuteHCV infection. Hepatitis B Surface Ag Negative Negative [facility] Blood 07/04/2024 1:00 PM EDT 07/04/2024 4:17 PM EDT Marta Johnson MD LAB BLOOD ORDERABLES Fin al Result [facility] [address] [place] [phone] [phone] from Last 3 Months or Most Recently Relevant to Health Maintenance Insurance [facility] STANDARD DENTAL-[facility] MEDICAID STAND ADULT Care Teams Reed Dipper Relationship Specialty Start Date End Date Marta Johnson MD [address] [place] [phone] PCP - General Internal Medicine 06/27/24
--- OUTSIDE RECORDS SUMMARY | 2024-12-09 19:15 | XMS_ITS ---
Author Organization [facility] Address [address] [place], [place] [id number] Care Team Providers Care Speech Language Pathologist Assistant Name Role Phone No, PCP Primary Care Provider Unavailabl e [facility] Unavailable [phone] REASON FOR VISIT Remind member of appt with Olinda Encounters Encounter Location Date Provider Diagnosis [facility] [address] [place], [place] [phone] 08/15/2023 [facility] Plan Of Treatment No Information Progress Notes * ARAUJO Salvatore ARMIJOOB: (68 yo M)Acc No.[id number]:08/15/2023 Patient:?Beryl Rebolledo :1955???Age:68 Y???Sex:Male Address:[address] [place] [phone] * true * Date:? Generated for Louie mcdowell/Eh/eTransmitting on:?12/09/2024 12:26 PM EST
--- OUTSIDE RECORDS SUMMARY | 2024-12-09 19:15 | XMS_ITS ---
Author Organization [facility] Address [address] [place], [place] [phone] Care Team Providers Care Garland Machine Operator Name Role Phone No, PCP Primary Care Provider Unavailabl e [facility] Unavailable [phone] REASON FOR VISIT Apply for Encounters Encounter Location Date Provider Diagnosis [facility] [address] [place], [place] [phone] 07/02/2023 [facility] Plan Of Treatment No Information Progress Notes * Alexis REBOLLEDOoDOB: (68 yo M)Acc No.[id number]:07/02/2023 Patient:?Beryl Rebolledo Provider:?[facility] :1955???Age:68 Y???Sex:Male Jean Marie e:07/02/2023 Address:[address] [place], [place] [phone] Pcp:PCP No Subjective: * Chief Complaints: * ???1. Apply for . * HPI: ???Social Service:?Date of encounter?07/02/2023.?Referral Source?Seen at: , [facility].?Action Taken?Insurance eligibility assessed?07/02/2023 Not Eligible for ,?[facility]?Affordable care appication : paper application on paper : faxed, STAN submitted.?Follow-up Required:?yes, update on MH application.?Pt comprehension?Pt agrees with plan , Patient understood process and assisted with process.? * Medical History:? Objective: Assessment: Plan: * Images: Billing Information: Care Plan Details* * Sign off status: Completed true * Provider:?[facility] Date:?07/02/2023 Generated for Louie mcdowell/Eh/Awilda on:?12/09/2024 07:15 PM EST History and Physical Notes * HPI (History of Present Illness) Category Sub-Category Detail Notes Social Service Referral Source Seen at: , [facility] Follow-up Required: yes, update on MH ap plication Pt comprehension Pt agrees with plan , Patient understood process and assisted with process Action Taken Insurance eligibility assessed: 07/02/2023 Not Eligible for [facility] : Affordable care appication : paper application on paper : STAN pritchett submit radha Date of encounter 07/02/2023
--- OUTSIDE RECORDS SUMMARY | 2024-12-09 19:15 | XMS_ITS | Encounter Summary ---
Author Organization [employer] Address [address] [place] [address] [address] [place] [address] Care Team Providers Care Webmethods Consultant Name Role Phone Marta Johnson MD Primary Care Provider + Encounter Details Date Type Department Care Team (Latest Contact Info) Description 12/09/2024 Travel Social History Tobacco Use Types Packs/Day Years [...] documented as of this encounter Care Teams Webmethods Consultant Relationship Specialty Start Date End Date Marta Johnson MD [address] [place] [phone] PCP - General Internal Medicine 06/27/24 documented as of this encounter
== END 2024-12-09 15:27 | disposition home or self-care (01) ==
LOC: HO.HHCX 15:26
PROVIDERS: Visit Provider Internal Medicine
DX: M25.462 Effusion, left knee (principal)
CPT/HCPCS: 73564

== ENCOUNTER → 2024-12-09 15:26 | Outpatient (BNV) | payer MEDICAID, SELFPAY | PROVIDERS: Visit Provider Radiology Diagnostic Radiology | DX: M25.462 Effusion, left knee (principal); M17.12 Unilateral primary osteoarthritis, left knee; M11.262 Other chondrocalcinosis, left knee | CPT/HCPCS: 73564 ==

== ENCOUNTER 2025-02-16 15:08 | Outpatient (REF) | payer MEDICAID, SELFPAY ==
[2025-02-16 16:39] LABS: Anion Gap 13 (12-20); Blood Urea Nitrogen 13 mg/dL (9-16); Calcium 9.4 mg/dL (8.4-10.2); Carbon Dioxide 28 mmol/L (22-29); Chloride 104 mmol/L (96-108); Estimated Glomerular Filt Rate > 60; Glucose Random 102 mg/dL (60-115); Potassium 4.6 mmol/L (3.3-5.1); Sodium 140 mmol/L (135-145)
--- OUTSIDE RECORDS SUMMARY | 2025-02-16 16:45 | XMS_ITS | Encounter Summary ---
Author Organization [employer] Address [address] [facility] 7 [place] [address] Care Team Providers Care Email Designer Name Role Phone Marta Johnson MD Primary Care Provider + Reason for Visit * Reason Comments Care Coordination CHW outreach for SDO H housing search-referral completed Encounter Details Date Type Department Care Team (Latest Contact Info) Description 02/16/2025 Patient Outreach [facility] [address] [place] [address] [phone] Marta Johnson MD [address] [place] [address] Care Coordination (CHW outreach for SDOH housing search-referral completed ) Social History Tobacco Use Types Packs/Day Years Used Date Smoking Tobacco: Every Day Cigarettes Passive Smoke Exposure: Current Smokeless Tobacco: Never Alcohol Use Standard Drinks/Week [...] PM EDT documented as of this encounter Progress Notes * Trev Mejia - 02/16/2025 2:26 PM EDT CHW Trev Mejia, placed outbound call to patient for assistance with SDOH as a referral was received by the provider. Patient's name and were confirmed. Patient screened positive for the following SDOH housing insecurities. Patient states is staying with her friend but is searching for her own apartment. CHW referral patient to the list of application with [facility] and advice patient to connect with [facility]. Patient stated don't want to go to any shelters. Patient verbalizes understanding, and able to agree with plan to follow up herself. Patient educated on extended clinic hours on Mondays through Wednesdays, and Walk-In Urgent Care Located in [facility]. Patient provided with after-hours line for [facility], , which offer night time triage service and option to transfer toon call provider if needed. documented in this encounter Plan of Treatment Upcoming Encounters Date Type Department Care Team (Late st Contact Info) Description 03/02/2025 10:00 AM EDT Medication Management [facility] [address] [place] [phone] 03/10/2025 3:30 PM EDT Office Visit [facility] OPTOMETRY [address] [place] [address] Haley Gamboa, OD [address] [place] [address] 05/18/2025 2:15 PM EDT Office Visit [facility] [address] [place] [address] Marta Johnson MD [address] [place] [phone] documented as of this encounter Visit Diagnoses Not on filedocumented in this encounter Additional Health Concerns Assessment Noted Time PHQ-9 Depression Total Score: 18 024 3:07 PM EST documented as of this encounter Care Teams Email Designer Relationship Specialty Start Date End Date Marta Johnson MD [address] [place] [phone] PCP - General Internal Medicine 06/27/24 documented as of this encounter
--- OUTSIDE RECORDS SUMMARY | 2025-02-16 16:45 | XMS_ITS | Clinical Summary ---
Author Organization [facility] Address [address] [place] [address] Phone Care Team Providers Care Machine Printer Hose Name Role Phone Marta Johnson MD Primary Care Provider + [phone] Allergies No known active allergies Medications losartan (COZAAR) 25 mg tablet Take 1 tablet (25 mg total) by mouth 1 (one) time each day. 30 each 11/18/2024 Active furosemide (LASIX) 20 mg tablet Take 1 tablet (20 mg total) by mouth 1 (one) time each day. 30 each 11/17/2024 Active Active Problems Problem Noted Date Diagnosed Date New onset of congestive hear t failure (CMS/HCC V24, CMS/HCC V28) 11/16/2024 Encounters Date Type Department Care Team Description 12/15/2024 Telephone [facility] [phone] [facility] [address] [place] [address] Mustapha Polanco MD from Last 3 Months Medical History Medical [...] 11/17/2024 2:14 PM EST Plan of Treatment Health Maintenance Due Date Last Done Comments DTaP,Tdap,and Td Vaccines (1 - Tdap) 1973 Pneumococcal Vaccine: 50+ Years (1 of 2 - PCV) 1973 Zoster Vaccines (1 of 2) 2004 RSV Immunization Adult Patients (1 - Risk 60-74 years 1-dose series) 2014 COVID-19 Vaccine ( - 2023-2 5 season) 2024 Cholesterol Screening (Lipid Panel) 11/16/2024 Colorectal Cancer Screening: Colonoscopy 11/16/2024 Hepatitis C Screening 11/16/2024 Social Influencers of Health Screening 11/16/2024 Influenza Vaccine (Season Ended) 2025 Depression Screening 09/10/2025 09/10/2024 Falls Risk Assessment 11/17/2025 11/17/2024 Hypertension/CHF/CAD Annual [...] age to complete this topic Meningococcal B Vaccine Aged Out No l onger eligible based on patient's age to complete this topic RSV Immunization Patients Under 20 months Aged Out No longer eligible b ased on patient's age to complete this topic Varicella Vaccines Aged Out No longer eligible based on patient's age to complete this topic Procedures Procedure Name Priority Date/Time Associated Diagnosis Comments BASIC METABOLIC PANEL Routine 11/17/2024 6:17 AM EST from Last 3 Months or Most Recently Relevant to Health Maintenance Results * (ABNORMAL) Basic metabolic panel (11/17/2024 6:17 AM EST) Pathologist [facility] Sodium 135 133 - 145 mmol/L LAB CHEMISTRY METHOD 11/17/2024 8:19 AM [facility] Potassium 4.0 3.5 - 5.5 mmol/L LAB CHEMISTRY METHOD 11/17/2024 8:19 AM [facility] Chloride 102 96 - 110 mmol/L LAB CHEMISTRY METHOD 11/17/2024 8:19 AM [facility] CO2 29 21 - 32 mmol/L LAB CHEMISTRY METHOD 11/17/2024 8:19 AM [facility] Anion Gap 4 3 - 11 LAB CHEMISTRY METHOD 11/17/2024 8:19 AM [facility] Glucose 102(H) 70 - 100 mg/dL LAB CHEMISTRY METHOD 11/17/2024 8:19 AM [facility] BUN 13 5 - 25 mg/dL LAB CHEMISTRY METHOD 11/17/2024 8:19 AM [facility] Creatinine 0.84 0.70 - 1.30 mg/dL LAB CHEMISTRY METHOD 11/17/2024 8:19 AM [facility] eGFR 94 >=60 mL/min/1. 73m2 LAB CHEMISTRY METHOD 11/17/2024 8:19 AM [facility] Comment:Calculation based on the??Chronic Kidney Disease Epidemiology Collaboration (CKD-EPI) equation refit??without adjustment for race. BUN/Creatinine Ratio 15.5 LAB CHEMISTRY METHOD 11/17/2024 8:19 AM EST [facility] Calcium 9.3 8.5 - 10.5 mg/dL LAB CHEMISTRY METHOD 11/17/2024 8:19 AM EST [facility] Blood Venous blood specimen / Unknown Venipuncture / Unknown 11/17/2024 6:17 AM EST 11/17/2024 7:05 AM EST us Ivy Calvin MD LAB BLOOD ORDERABLES Final Res ult [facility] [address] [place] [address], [place] [phone] from Last 3 Months or Most Recently Relevant to Health Maintenance Insurance MEDICAID - [place] Advance Directives * Full Code - Default [...] currently active code status orders. Care Teams Machine Printer Hose Relationship Specialty Start Date End Date Marta Johnson MD [address] [place] [phone] PCP - General Internal Medicine 11/17/24
--- OUTSIDE RECORDS SUMMARY | 2025-02-16 16:45 | XMS_ITS | Patient Health Record ---
Author Organization [facility] Address [address] [place], [place] [phone] Care Team Providers Care Wire Products Inspector Name Role Phone No, PCP Primary Care Provider [facility] Unavailable [phone] Allergies No Known Allergies Reason For Referral [...] W/U Status Risk Notes Problem Sheltered homelessness ([id number] ) Sheltered homelessness (Z59.01) Active confirmed Plan Of Treatment No Information Insurance Providers Payer Name Payer Address Payer Phone Subscriber Number Group Number Insured Name Patient Relationship to Insured Coverage Start Date Coverage End Date Health Safety [facility] Office Medical [address] [place] [phone] [id number] Trenton RivasoAlexiso Self - patient is the insured 3 Medical (General) History Surgical History Surgery Date(Month/Year) hernia repair 2009 cholecystectomy 2009
--- OUTSIDE RECORDS SUMMARY | 2025-02-16 16:45 | XMS_ITS | Encounter Summary ---
Author Organization [employer] Address [address] [place] [address] 7[address] [place] [address] Care Team Providers Care Special Deputy Sheriff Name Role Phone Marta Johnson MD Primary Care Provider + Encounter Details Date Type Department Care Team (Late st Contact Info) Description 02/16/2025 1:15 PM EDT Office Visit [facility] [address] [place], [place] [phone] Marta Johnson MD [address] [place], [place] [phone] Chronic systolic congestive heart failure (CMS/HCC) (Primary Dx); Essential hypertension; Severe depression (CMS/HCC) Social History Tobacco Use Types Packs/Day Years Used Date Smoking Tobacco: Every Day Cigarettes Passive Smoke Exposure: Current Smokeless Tobacco: Never Tobacco Cessation:Ready to Q [...] Sign Reading Time Taken Comments Blood Pressure 134/93 02/16/2025 1:29 PM EDT Pulse 71 02/16/2025 1:29 PM EDT Temperature 36.2 ??C (97.1 ??F) 02/16/2025 1:29 PM ED T Respiratory Rate 20 02/16/2025 1:29 PM EDT Oxygen Saturation 99% 02/16/2025 1:29 PM EDT Inhaled Oxygen Concentration - - Weight 80.4 kg (177 lb 4 oz) 02/16/2025 1:29 PM EDT Height 174.1 cm (5' 8.56 ) 02/16/2025 1:29 PM ED T Body Mass Index 26.52 02/16/2025 1:29 PM EDT documented in this encounter Miscellaneous Notes * Assessment & Plan Note - Marta Johnson MD - 02/16/2025 2:21 PM EDT Associated Problem(s): Severe depression (CMS/HCC) Has not seen psychotherapy recently. He has not made an appointment for psychotherapy. * Assessment & Plan Note - Marta Johnson MD - 02/16/2025 2:19 PM EDT Associated Problem(s): Essential hypertension Uncontrolled, unclear about compliance, appointment for med boxes was made for 03/02/2025, she declines close referral with CDTM program, he has difficulty with transportation there is no clear as of willingness to come often for appointments. Appointment information given to patient. Continue losartan to 50 mg, check BMP today. Continue Lasix and Metoprolol 12.5 mg BID. FU with me in 6 weeks. * Assessment & Plan Note - Marta Johnson MD - 02/16/2025 2:19 PM EDT Associated Problem(s): Systolic congestive heart failure (CMS/HCC) Clinically improving and seems to be euvolemic. Continue Lasix, losartan and metoprolol same dose, I gave him information to schedule appointment with Dr. Polanco at [facility] We discussed about decreasing salt consumption, go to ED if he develops persistent LOMBARDI, orthopnea, leg edema or chest pain. We discussed about checking BP at home and I will follow-up with him in 4 to 6 weeks to adjust medications if needed documented in this encounter Plan of Treatment Upcoming Encounters Date Type Department Care Team (Late st Contact Info) Description 03/02/2025 10:00 AM EDT Medication Management [facility] [address] [place] [address] 03/10/2025 3:30 PM EDT Office Visit [facility] OPTOMETRY [address] [place] [address] TarkaHaley, OD [address] [place] [address] 05/18/2025 2:15 PM EDT Office Visit [facility] [address] [place] [address] Marta Johnson MD [address] [place] [address] documented as of this encounter Visit Diagnoses Diagnosis Chronic systolic congestive heart failure (CMS/HCC)- Primary Essential hypertension Unspecified essential hypertension Severe depression (CMS/HCC) Depressive disorder, not elsewhere classified documented in this encounter Additional Health Concerns Assessment Noted Time PHQ-9 Depression Total Score: 18 09/10/ 024 3:07 PM EST documented as of this encounter Care Teams Special Deputy Sheriff Relationship Specialty Start Date End Date Marta Johnson MD [address] [place] [address] PCP - General Internal Medicine 06/27/24 documented as of this encounter
--- OUTSIDE RECORDS SUMMARY | 2025-02-16 16:45 | XMS_ITS | Encounter Summary ---
Author Organization [employer] Address [address] [facility] 7t [place] [address] Care Team Providers Care Handbell Choir Director Name Role Phone Marta Johnson MD Primary Care Provider + Encounter Details Date Type Department Care Team (Late st Contact Info) Description 11/25/2024 Orders Only [facility] [address] [place] [address] Provider, MD Huber Social History Tobacco Use [...] Description 03/02/2025 10:00 AM EDT Medication Management [facility] [address] [place] [address] 03/10/2025 3:30 PM EDT Office Visit [facility] OPTOMETRY [address] [place] [address] TarkaHaley, OD [address] [place] [address] 05/18/2025 2:15 PM EDT Office Visit [facility] [address] [place] [phone] Marta Johnson MD [address] [place] [address] documented as of this encounter Procedures Procedure [...] Noted Time PHQ-9 Depression Total Score: 18 09/10/2 024 3:07 PM EST documented as of this encounter Care Teams Handbell Choir Director Relationship Specialty Start Date End Date Marta Johnson MD [address] [place] [phone] PCP - General Internal Medicine 06/27/24 documented as of this encounter
--- OUTSIDE RECORDS SUMMARY | 2025-02-16 16:45 | XMS_ITS | Encounter Summary ---
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 * Result Encounter Note [...] 10:00 AM EDT Medication Management [facility] [address] [place] [address] 03/10/2025 3:30 PM EDT Office Visit [facility] OPTOMETRY [address] [place] [address] TarHaley vargas, OD [address] [place] [address] 05/18/2025 2:15 PM EDT Office Visit [facility] [address] [place] [address] Marta Johnson MD [address] [place] [address] documented as of this encounter Procedures Procedure [...] PM EDT Narrative 07/17/2024 3:05 PM EDT ?[facility] ?[address] ?[place] [address] ?XRay Report ? Signed ? Patient: Chowdhury Fuentes,Meet ?MR#: [id number] ?? [id number] ? : 1955 ?Acct:[id number] ? Age/Sex: 69 / M ?ADM Date: 07/17/24 ? Loc: HO.HHCX ? Attending Dr: Marta Johnson MD ? Ordering Physician: Marta Johnson MD ?? Date of Service: 07/17/24 ?? Procedure(s): XR chest 2V ?? Accession Number(s): [id number] ? cc: Marta Johnson MD ? EXAMINATION: [...] DD/ 1346 ? TD/TT: 07/17/24 1358 ? Insolvency Consultant: SS ? Procedure Note Alisha Smith - 07/17/[address] [address] XRay Report Signed Patient: Anurag Rebolledo#: M [id number] : 4Acct:[id number] Age/Sex: 69 / MADM Date: 07/17/24 Loc: HO.HHCX Attending Dr: Marta Johnson MD Ordering Physician: Marta Johnson MD Date of Service: 07/17/24 Procedure(s): XR chest 2V Accession Number(s): [id number] cc: Marta Johnson MD EXAMINATION: XR CHEST [...] Aba Pierce MD 07/17/2024 03:02 PM EDT RP Dictated By: Aba Pierce MD Signed By: <Electronically signed by Aba Pierce MD in OV> 07/17/24 1502 DD/ 1346 TD/TT: 07/17/24 1358 Insolvency Consultant: SS us Marta Johnson MD IMG XR PROCEDURES Final Result * (ABNORMAL) Confirmatory Syphilis Profile (07/04/2024 1:00 PM EDT) Rapid Plasma Reagin, Quant Reactive 1:2(A) Nonreactive [facility] Treponema pallidum Antibody, Particle Agglutination Reactive(A) Nonreactive [facility] 07/04/2024 1:00 PM EDT 07/04/2024 6:13 PM EDT us Marta Johnson MD LAB BLOOD ORDERABLES Fin al Result [facility] [address] [place] [phone] [phone] documented in this encounter Visit Diagnoses Diagnosis Positive TB test- Primary documented in this encounter Additional Health Concerns Assessment Noted Time PHQ-9 Depression Total Score: 5 05/30/20 24 1:30 PM EDT documented as of this encounter Care Teams Pinked Edge Sewing Machine Operator Relationship Specialty Start Date End Date Marta Johnson MD [address] [place] [address] PCP - General Internal Medicine 06/27/24 documented as of this encounter
--- OUTSIDE RECORDS SUMMARY | 2025-02-16 16:45 | XMS_ITS | Clinical Summary ---
Author Organization [employer] Address [address] [facility] 7t [place] [address] Care Team Providers Care Dovetailer Name Role Phone Marta Johnson MD Primary Care Provider + Allergies No known active allergies Medications * This document contains information received from the source organization and may not represent a complete record from that organization. Blood Pressure Monitoring (Blood Pressure Cuff) misc Use daily as prescribed 1 each 4 Active dorzolamide-linda olol (Cosopt) 2-0.5 % ophthalmic solutionIndicat ions:Primary open angle glaucoma of both eyes, unspecified glaucoma stage Administer 1 drop into both eyes 2 times daily. 10 mL 5 4 08/29/20 25 Active furosemide (Lasix) 20 MG tablet Take 1 tablet (20 mg) by mouth Once per day. 90 tablet 1 5 Active losartan (Cozaar) 50 MG tablet Take 1 tablet (50 mg) by mouth Once per day. 90 tablet 1 5 Active metoprolol tartrate (Lopressor) 25 MG tablet Take 0.5 tablets (12.5 mg) by mouth 2 times daily. 90 tablet 1 5 Active latanoprost (Xalatan) 0.005 % ophthalmic solutionIndicat ions:Primary open angle glaucoma of both eyes, unspecified glaucoma stage INSTILL 1 DROP IN EACH EYE AT BEDTIME 2.5 mL 3 5 Active aspirin 81 MG EC tabletIndicatio ns:Peripheral vascular disease (CMS/HCC) Take 1 tablet (81 mg) by mouth Once per day. 90 tablet 3 5 01/03/20 26 Active ergocalciferol (Vitamin D2) 1.25 MG (51442 UT) capsule Take 1 capsule (1.25 mg) by mouth 1 (one) time per week. 12 capsule 02/17/20 25 Discontin ued(Thera py completed ) Active Problems Problem Noted Date Diagnosed Date Primary osteoarthritis of left knee 12/10/2024 Systolic congestive heart failure 12/09/2024 Assessment & Plan (02/16/2025 2:19 PM EDT): Clinically improving and seems to be euvolemic. Continue Lasix, losartan and metoprolol same dose, I gave him information to schedule appointment with Dr. Polanco at [facility] We discussed about decreasing salt consumption, go to ED if he develops persistent LOMBARDI, orthopnea, leg edema or chest pain. We discussed about checking BP at home and I will follow-up with him in 4 to 6 weeks to adjust medications if needed Assessment & Plan (12/09/2024 4:52 PM EST): S/P hospital discharge, continue Lasix, increase Losartan to 50 mg and start Metoprolol 12.5 mg BID. I discussed with pt and anomiienTiffanie medrano, to FU with cardiology with Dr. Polanco. Infrarenal abdominal aortic aneurysm (AAA) witho ut rupture 12/09/2024 Assessment & Plan (12/09/2024 4:53 PM EST): Discussed with pt and Tiffanie madrid, to r/s appointment with vascular surgeon Dr. Zelaya. Edema of knee 12/09/2024 Assessment & Plan (12/10/2024 9:06 AM EST): S/P fall, most likely synovial effusion from ligament or meniscal lesion?. Advised to keep leg elevated and put ice to affected area and avoid weight bearing on left side, continue using crutches. Use Tylenol and order XR, will fu after XR results. Will order knee immobilizer for at least 4w, refer to ortho if needed. Varicose veins of both lower extremities with [...] on this, may need to look for corporate legal assistant at [employer] so they help him with his residency status etc. Severe depression 08/05/2024 Assessment & Plan (02/16/2025 2:21 PM EDT): Has not seen psychotherapy recently. He has not made an appointment for psychotherapy. Assessment & Plan (09/10/2024 3:48 PM EST): [...] trigger for his sxs. Pt moved from [place] two years ago hoping to have more job opportunities. Has a sister who is positive social support but lives in [place]. clinician provided a safe space for pt to share his emotions and concerns. Pt was previously connected with but lost appointment. He will reach out to medicare sales representative and seek out for additional support regarding housing. Pt declines retirement resources at this time. Reviewed and assessed for risk, current stressors and protective factors using open-ended questions. Pt is currently on wait list for psychiatry services and OP therapy with [facility]. Assessment & Plan (09/10/2024 2:41 PM [...] previous BCG vaccination as a child in [place]. I do not think there is a need for INH prophylaxis We'll fu in 1y. Assessment & Plan (08/06/2024 4:02 PM EDT): Neg CXR, hx BCG No INH prophylaxis for now. Will ask ID re need for further w/u Essential hypertension 05/30/2024 Assessment & Plan (02/16/2025 2:20 PM EDT): Uncontrolled, unclear about compliance, appointment for med [...] me in 6 weeks. Assessment & Plan (12/09/2024 4:51 PM EST): [...] area. Closed left ankle fracture 03/27/2024 Encounters Date Type Department Care Team Description 02/16/2025 1:15 PM EDT Office Visit [facility] [address] [place] [address] Marta Johnson MD Chronic systolic congestive heart failure (CMS/HCC) (Primary Dx); Essential hypertension; Severe depression (CMS/HCC) 02/16/2025 Patient Outreach [facility] [address] [place] [address] Marta Johnson MD Care Coordination (CHW outreach for SDOH housing search-referral completed ) 02/16/2025 Travel 02/12/2025 Telephone [facility] [address] [place] [phone] Marta Johnson MD chart prep 02/10/2025 Patient Outreach [facility] [address] [place] [phone] Marta Johnson MD Pre-visit Planning (SDOH to be done in office) 02/05/2025 1:15 PM EDT Office Visit [facility] OPTOM[facility] [address] [place] [address] Casandra Gamboaica, OD Primary open angle glaucoma (POAG) of left eye, severe stage (Primary Dx); Primary open-angle glaucoma, right eye, mild stage 02/05/2025 Travel 01/14/2025 Telephone [facility] [address] [place] [phone] Marta Johnson MD Durable Medical Equipment 01/06/2025 Outside Procedure [facility] [address] [place] [phone] Pedro Baconn, OD Presbyopia (Primary Dx) 01/02/2025 9:15 AM EDT Office Visit [facility] [address] [place] [address] Pedro Baconn, OD Hyperopia of both eyes (Primary Dx) 01/02/2025 Refill [facility] [address] [place] [phone] Marta Johnson MD Peripheral vascular disease (CMS/HCC) 12/30/2024 Telephone [facility] [address] [place] [phone] Marta Johnson MD 12/18/2024 Telephone [facility] [address] [place] [address] Amanda Sabillon, VICTOR HUGO 12/17/2024 Telephone [facility] [address] [place] [phone] Marta Johnson MD 12/15/2024 Telephone [facility] [address] [place] [address] Amanda Sabillon, VICTOR HUGO 12/15/2024 Telephone [facility] [address] [place] [address] Marta Johnson MD 12/15/2024 Refill [facility] OPT[facility]ET[facility] [address] [place] [address] Haley Gamboa, OD Primary open angle glaucoma of both eyes, unspecified glaucoma stage 12/10/2024 Telephone [facility] [address] [place] [address] Marta Johnson MD Durable Medical Equipment 12/10/2024 Telephone [facility] [address] [place] [address] Marta Johnson MD 12/10/2024 Orders Only [facility] [address] [place] [address] Marta Johnson MD Primary osteoarthritis of left knee (Primary Dx); Knee effusion, left 12/10/2024 Telephone [facility] [address] [place] [phone] Amanda Sabillon RN 12/09/2024 1:45 PM EST Office Visit [address] [address] Marta Johnson MD Systolic congestive heart failure, unspecified HF chronicity (CMS/HCC) (Primary Dx); Essential hypertension; Infrarenal abdominal aortic aneurysm (AAA) without rupture (CMS/HCC); Syphilis in male; Edema of knee; Varicose veins of both lower extremities with pain 12/09/2024 Travel 12/03/2024 Telephone [facility] [address] [place] [address] Marta Johnson MD Chart prep 11/26/2024 Telephone [facility] [address] [place] [address] Chantelle Cerda, VICTOR HUGO 11/26/2024 Telephone [facility] [address] [place] [address] Marta Johnson MD 11/25/2024 Orders Only [facility] [address] [place] [address] Huber Mckeon MD from Last 3 Months Social History Tobacco [...] Mass Index 26.52 02/16/2025 1:29 PM EDT Plan of Treatment Upcoming Encounters Date Type Department Care Team (Late st Contact Info) Description 03/02/2025 10:00 AM EDT Medication Management [facility] [address] [place] [address] 03/10/2025 3:30 PM EDT Office Visit [facility] [address] [place] [address] Haley Gamboa, OD [address] [place] [address] 05/18/2025 2:15 PM EDT Office Visit [facility] [address] [place] [address] Marta Johnson MD [address] [place] [address] Health Maintenance Due Date Last Done Comments [...] 5 season) 2024 Influenza Vaccine (#1) 2024 Alcohol/Substance Use Screening 05/30/2025 05/30/2024 Depression Screening 09/10/2025 09/10/2024, 09/10/2024 Tobacco Screening 02/16/2026 02/16/2025 Lipid Panel 07/04/2029 07/04/2024 Hepatitis C Screening [...] Associated Diagnosis Comments BASIC METABOLIC PANEL Routine 02/16/2025 3:10 PM EDT Essential hypertension XR KNEE 4+ VIEWS LEFT Routine 12/09/2024 3:26 PM EST Edema of knee HEPATITIS PANEL, GENERAL Routine 07/04/2024 1:00 PM EDT Visit for preventive health examination LIPID PANEL WITH REFLEX TO DIRECT LDL Routine 07/04/2024 1:00 PM EDT Essential hypertension from Last 3 Months or Most Recently Relevant to Health Maintenance Results * Basic Metabolic Panel (02/16/2025 3:10 PM EDT) Sodium 140 135 - 145 mmol/L [facility] Potassium 4.6 3.3 - 5.1 mmol/L [facility] Chloride 104 96 - 108 mmol/L [facility] Carbon Dioxide 28 22 - 29 mmol/L [facility] Anion Gap 13 12 - 20 [facility] Urea Nitrogen (BUN) 13 9 - 16 mg/dL [facility] Creatinine, Serum 0.86 0.5 - 1.4 mg/dL [facility] Estimated Glomerular Filt Rate >60 [facility] Comment:Chronic Kidney Disea se: Estimated GFR < 60 mL/min/1.45c1Stmvvg Kidney Disease: Estimated GFR < 15 mL/min/1.73m2 Glucose 102 60 - 115 mg/dL [facility] Calcium 9.4 8.4 - 10.2 mg/dL [facility] Blood Venous blood specimen / Unknown 02/16/2025 3:10 PM EDT 02/16/2025 4:12 PM EDT us Marta Johnson MD LAB BLOOD ORDERABLES Fin al Result [facility] [address] [place] [address] [phone] * XR Knee 4+ Views Left (12/09/2024 3:26 PM EST) Anatomical Region Laterality Modality Lower Extremities, Knee Left Radiogra phic Imaging 12/09/2024 3:26 PM EST Narrative 12/09/2024 4:22 PM EST ?[facility] ?[address] ?[place] [address] ?XRay Report ? Signed ? Patient: Chowdhury Fuentes,Meet ?MR#: [id number] ?? [id number] ? : 1955 ?Acct:[id number] ? Age/Sex: 69 / M ?ADM Date: 12/09/24 ? Loc: HO.[facility]HCX ? Attending Dr: Marta Johnson MD ? Ordering Physician: Marta Johnson MD ?? Date of Service: 12/09/24 ?? Procedure(s): XR knee LT 4V ?? Accession Number(s): [id number] ? cc: Marta Johnson MD ? EXAMINATION: [...] DD/ 1526 ? TD/TT: 12/09/24 1550 ? Provider Scribe: ? Procedure Note Kavinter, Image - 12/09/[address] [address] XRay Report Signed Patient: Anurag Rebolledo#: M [id number] : 4Acct:[id number] Age/Sex: 69 / MADM Date: 12/09/24 [facility] Dr: Marta Johnson MD Ordering Physician: Marta Johnson MD Date of Service: 12/09/24 Procedure(s): XR knee LT 4V Accession Number(s): [id number] cc: Marta Johnson MD EXAMINATION: XR KNEE, [...] MD 12/09/2024 04:19 PM EST Dictated By: Joreg Carney MD Signed By: <Electronically signed by Jorge Carney MD in OV> 12/09/24 1619 DD/ 1526 TD/TT: 12/09/24 1550 Provider Scribe: us Marta Johnson MD IMG XR PROCEDURES Final Result * (ABNORMAL) Lipid Panel with Reflex to Direct LDL (07/04/2024 1:00 PM EDT) Triglycerides 124 <150 mg/dL [facility] Comment:Desirable Triglyceri de: less than 150 mg/dLBorderline High Triglyceride 150-199 mg/dLHigh Triglyceride: 200-499 mg/dLVery High Triglyceride: greater than or equal to 5OO mg/dL Cholesterol 230(H) <200 mg/dL [facility] Comment:Desirable Cholestero l: less than 200 mg/dLBorderline High Cholesterol: 200-239 mg/dLHigh Cholesterol: greater than 239 mg/dL LDL Cholesterol Calculated 157(H) <100 mg/dL [facility] Comment:Desirable LDL: less than 100 mg/dLNear Optimal/Above Optimal LDL: 110- 129 mg/dLBorderline High LDL: 130-159 mg/dLHigh LDL: 160-189 mg/dLVery High LDL: greater than or equal to 190 mg/dL HDL Cholesterol 49 >40 mg/dL [facility] Comment:Desirable HDL: great er than 40 mg/dL Note: This HDL assay may give artificially low results in patients with liver disease. Blood 07/04/2024 1:00 PM EDT 07/04/2024 4:17 PM EDT us Marta Johnson MD LAB BLOOD ORDERABLES Fin al Result [facility] [address] [place] [phone] * Hepatitis Panel, General (07/04/2024 1:00 PM EDT) Hepatitis A IgM Nonreactive Nonreactive [facility] Comment:IgM antibodies to MEYER V not detected; does not exclude earlyacute or recovered HAV infection. ~Hepatitis B Surface Antibody REACTIVE Nonreactive [facility] Comment:REACTIVE: > 11.99 mI U/mL Hepatitis B Core Antibody Reactive Nonreactive [facility] Comment:Presumptive evidence of anti-HBc. Hepatitis C Antibody Nonreactive Nonreactive [facility] Comment:Antibodies to HCV no t detected; does not exclude early acuteHCV infection. Hepatitis B Surface Ag Negative Negative [facility] Blood 07/04/2024 1:00 PM EDT 07/04/2024 4:17 PM EDT Marta Johnson MD LAB BLOOD ORDERABLES Fin al Result [facility] [address] [place] [address] [phone] from Last 3 Months or Most Recently Relevant to Health Maintenance Insurance [facility] STANDARD DENTAL-[facility] MEDICAID STAND ADULT Care Teams Dovetailer Relationship Specialty Start Date End Date Marta Johnson MD [address] [place] [phone] PCP - General Internal Medicine 06/27/24
--- OUTSIDE RECORDS SUMMARY | 2025-02-16 16:45 | XMS_ITS | Encounter Summary ---
Author Organization [employer] Address [address] [facility] 7t [place] [address] Care Team Providers Care Bill Of Lading Clerk Name Role Phone Marta Johnson MD Primary Care Provider + Encounter Details Date Type Department Care Team (Late st Contact Info) Description 03/28/2024 Orders Only [facility] CHC MED & PEDS [address] [place], [place] [phone] Greer Chiang FNP [address] [place] [address] Social History Tobacco Use Types Packs/Day Years Used Date Smoking Tobacco: Never Smokeless Tobacco: Never Sex and Gender Information Value Date Recorded Sex Assigned at Male 01/09/2024 3:57 PM EDT Legal Sex Male 3:36 PM EST Gender Identity Male 01/09/2024 3:57 PM EDT Sexual Orientation Straight 01/09/2024 3: 57 PM EDT documented as of this encounter Plan of Treatment Upcoming Encounters Date Type Department Care Team (Late Contact Info) Description 03/02/2025 10:00 AM EDT Medication Management [facility] MEDICINE [address] [place] [address] 03/10/2025 3:30 PM EDT Office Visit [facility] OPTOMETRY [address] [place] [address] Haley Gamboa OD [address] [place] [address] 05/18/2025 2:15 PM EDT Office Visit [facility] MEDICINE [address] [place] [address] Marta Johnson MD [address] [place] [address] documented as of this encounter Visit Diagnoses Not on filedocumented in this encounter Care Teams Bill Of Lading Clerk Relationship Specialty Start Date End Date Marta Johnson MD [address] [place] [address] PCP - General Internal Medicine 06/27/24 documented as of this encounter
--- OUTSIDE RECORDS SUMMARY | 2025-02-16 16:45 | XMS_ITS | Encounter Summary ---
Author Organization [employer] Address [address] [place] [address] 7 [place] [address] Care Team Providers Care Duck Operator Name Role Phone Marta Johnson MD Primary Care Provider + Encounter Details Date Type Department Care Team (Latest Contact Info) Description 02/16/2025 Travel Social History Tobacco Use Types Packs/Day [...] 03/02/2025 10:00 AM EDT Medication Management [facility] MEDICINE [address] [place], [place] [phone] 03/10/2025 3:30 PM EDT Office Visit [facility] OPTOMETRY [address] [place] [address] Haley Gamboa, OD [address] [place] [address] 05/18/2025 2:15 PM EDT Office Visit [facility] MEDICINE [address] [place] [address] Marta Johnson MD [address] [place] [address] documented as of this encounter Visit Diagnoses Not on filedocumented in this encounter Additional Health Concerns Assessment Noted Time PHQ-9 Depression Total Score: 18 09/10/ 024 3:07 PM EST documented as of this encounter Care Teams Duck Operator Relationship Specialty Start Date End Date Marta Johnson MD [address] [place] [address] PCP - General Internal Medicine 06/27/24 documented as of this encounter
--- OUTSIDE RECORDS SUMMARY | 2025-02-16 16:45 | XMS_ITS | Encounter Summary ---
Author Organization [employer] Address [address] [place] [address] [address] [place] [address] Care Team Providers Care Churn Driller Name Role Phone Marta Johnson MD Primary Care Provider + Reason for Visit * Reason Onset Date Comments chart prep 02/12/2025 Encounter Details Date Type Department Care Team (Late st Contact Info) Description 02/12/2025 Telephone [facility] [address] [place], [place] [phone] aMrta Johnson MD [address] [place], [place] [phone] chart prep Social History Tobacco Use Types Packs/Day [...] encounter Miscellaneous Notes * Telephone Encounter - Melinda Oneil [place] - 02/12/2025 2:36 PM EDT Chart Prep Labs: not done ( unable to contact pt, phone not accepting calls) Images: done Referrals: (No show to vascular 12/03 and 01/21 and office wont reach pt) Vaccines due: Covid, PCV20, Tdap, and Zoster Screenings: colonoscopy Overdue care gaps: SDOH, PHQ-9, AMY-7, and Tobacco documented in this encounter Plan of Treatment Upcoming Encounters Date Type Department Care Team (Late st Contact Info) Description 03/02/2025 10:00 AM EDT Medication Management [facility] [address] [place] [address] 03/10/2025 3:30 PM EDT Office Visit [facility] OPTOMETRY [address] [place] [address] TarkaHaley, OD [address] [place] [address] 05/18/2025 2:15 PM EDT Office Visit [facility] MEDICINE [address] [place] [address] Marta Johnson MD [address] [place] [address] documented as of this encounter Visit Diagnoses Not on filedocumented in this encounter Additional Health Concerns Assessment Noted Time PHQ-9 Depression Total Score: 18 024 3:07 PM EST documented as of this encounter Care Teams Churn Driller Relationship Specialty Start Date End Date Marta Johnson MD [address] [place] [phone] PCP - General Internal Medicine 06/27/24 documented as of this encounter
[2025-02-17 04:10] LABS: Syphilis Screen Reactive (Nonreactive)
[2025-02-17 04:11] LABS: HBS Num1 589.04 mIU/mL (0-7.99); HBc Num1 8.11 S/CO (0.00-0.79); HBsAGNum1 0.25 S/CO (0.00-0.99); HIV AB/AG Nonreactive (Nonreactive); HIV Num 1 0.06 S/CO (0.00-0.99); Hepatitis A Antibody IgM 0.16 Index (0-0.79); Hepatitis B Surface Antigen Negative (Negative); ~HepC Num1 0.13 S/CO (0.00-0.79); ~Hepatitis A Antibody IgM Nonreactive (Nonreactive); ~Hepatitis B Surface Antibody REACTIVE (Nonreactive); ~Hepatitis C Antibody Nonreactive (Nonreactive)
[2025-02-17 04:55] LABS: HBc Num2 8.11 S/CO; HBc Num3 7.97 S/CO; Hepatitis B Core Antibody Reactive (Nonreactive)
[2025-02-22 14:26] LABS: RPR Quantitative Reactive 1:2 (Nonreactive); T.Pallidum Particle Agg Test Reactive (Nonreactive)
== END 2025-02-16 15:09 | disposition home or self-care (01) ==
LOC: HO.HHCL 15:08
PROVIDERS: Visit Provider Internal Medicine
DX: I10 Essential (primary) hypertension (principal); A53.9 Syphilis, unspecified
CPT/HCPCS: 36415; 80048; 86592; 86704; 86706; 86709; 86780; 86803; 87340; 87389

== ENCOUNTER 2025-08-13 13:28 | Outpatient (REF) | payer MEDICAID, SELFPAY ==
[2025-08-13 16:28] LABS: Alanine Aminotransferase 17 U/L (0-40); Albumin Level 4.0 g/dL (3.5-5.0); Alkaline Phosphatase 87 U/L (39-117); Aspartate Amino Transferase 24 U/L (5-37); Cholesterol 248 mg/dL (<200); HDL Cholesterol 47 mg/dL (>40); Total Protein 7.5 g/dL (6.5-8.0); Triglycerides 160 mg/dL (<150)
--- OUTSIDE RECORDS SUMMARY | 2025-08-13 16:33 | XMS_ITS | Patient Health Record ---
Author Organization [facility] Address [address] [place] [address] Care Team Providers Care Linecasting Machine Keyboard Operator Name Role Phone NO, PCP Primary Care Provider [facility], Ángel Unavailable [phone] Allergies No Known Allergies Reason For Referral [...] W/U Status Risk Notes Problem Sheltered homelessness ([id number] ) Sheltered homelessness (Z59.01) Active confirmed Encounters Encounter Location Date Provider Diagnosis [facility] [address] [place], [place] [phone] 06/25/2025 [facility] Plan Of Treatment No Information Insurance Providers Payer Name Payer Address Payer Phone Subscriber Number Group Number Insured Name Patient Relationship to Insured Coverage Start Date Coverage End Date [employer] [address] [place] [phone] [id number] Meet Rebolledo Self - patient is the insured 3 Medical (General) History Surgical History Surgery Date(Month/Year) hernia repair 2009 cholecystectomy 2009
--- OUTSIDE RECORDS SUMMARY | 2025-08-13 16:33 | XMS_ITS | Encounter Summary ---
Author Organization [employer] Address [address] [facility] 7 [place] [address] Care Team Providers Care Chore Worker Name Role Phone Marta Johnson MD Primary Care Provider + Encounter Details Date Type Department Care Team (Late st Contact Info) Description 11/25/2024 Orders Only [facility] Information Management [address] [place] [address] Provider, MD Huber Social History Tobacco Use [...] Care Team (Late st Contact Info) Description 08/20/2025 12:00 PM EST Office Visit [facility] MEDICINE [address] [place] [address] Marta Johnson MD [address] [place] [address] 09/14/2025 3:00 PM EST Office Visit [facility] OPTOMETRY [address] [place], [place] [phone] Taralicia, Haley, OD [address] [place] [address] documented as of this encounter Procedures Procedure Name Priority Date/Time Associated Diagnosis Comments CT ABDOMEN PELVIS W CONTRAST Routine 11/16/2024 9:28 AM EST documented in this encounter Results * CT Abdomen Pelvis w/ Contrast (11/16/2024 9:28 AM EST) Anatomical Region Laterality Modality Body, Pelvis, Abdomen Computed T omography us Historical Provider MD GUNN CT PROCEDURES Final R esult documented in this encounter Visit Diagnoses Not on filedocumented in this encounter Additional Health Concerns Assessment Noted Time PHQ-9 Depression Total Score: 18 09/10/2 024 3:07 PM EST documented as of this encounter Care Teams Chore Worker Relationship Specialty Start Date End Date Marta Johnson MD [address] [place] [address] PCP - General Internal Medicine 06/27/24 documented as of this encounter
--- OUTSIDE RECORDS SUMMARY | 2025-08-13 16:33 | XMS_ITS | Clinical Summary ---
Author Organization [employer] Address [address] [place] [address] Care Team Providers Care Gis Scientist Name Role Phone Marta Johnson MD Primary Care Provider + Allergies No known active allergies Medications * This document contains information received from the source organization and may not represent a complete record from that organization. Blood Pressure Monitoring (Blood Pressure Cuff) misc Use daily as prescribed 1 each 4 Active aspirin 81 MG EC tabletIndication s:Peripheral vascular disease (CMS/HCC) Take 1 tablet (81 mg) by mouth Once per day. 90 tablet 3 5 01/03/20 26 Active losartan (Cozaar) 100 MG tablet Take 1 tablet (100 mg) by mouth Once per day. 90 tablet 3 5 Active latanoprost (Xalatan) 0.005 % ophthalmic solutionIndicati ons:Primary open angle glaucoma of both eyes, unspecified glaucoma stage PLACE 1 DROP IN EACH EYE AT BEDTIME 2.5 mL 3 5 Active furosemide (Lasix) 20 MG tablet Take 1 tablet (20 mg) by mouth Once per day. 90 tablet 1 5 Active metoprolol tartrate (Lopressor) 25 MG tablet Take 0.5 tablets (12.5 mg) by mouth 2 times daily. 90 tablet 1 5 Active dorzolamide-evens lol (Cosopt) 2-0.5 % ophthalmic solutionIndicati ons:Primary open angle glaucoma of both eyes, unspecified glaucoma stage INSTILL 1 DROP IN INTO THE AFFECTED EYE(S) TWICE DAILY 10 mL 5 5 Active Active Problems Problem Noted Date Diagnosed Date Transportation insecurity due to lack of access to vehicle 05/18/2025 Assessment & Plan (05/18/2025 4:29 PM EDT): Requested PT1 services for [facility], Cardiology clinic, Vascular surgeon clinic, Eye and Lasik clinic and TB clinic. Patient is aware that he will need to bring provider information should he need transportation to another specialist. Primary osteoarthritis of left knee 12/10/2024 Systolic congestive heart failure 12/09/2024 Assessment & Plan (05/18/2025 4:16 PM EDT): No recent hospitalization, he is euvolemic today Continue Lasix metoprolol and aspirin. I will increase losartan to optimize BP I gave them information regarding cardiology referral for them to schedule appointment We discussed about decreasing salt consumption, go to ED if he develops persistent LOMBARDI, orthopnea, leg edema or chest pain. Follow-up with me in 2 months Assessment & Plan (02/16/2025 2:19 PM EDT): Clinically improving and seems to be euvolemic. Continue Lasix, losartan and metoprolol same dose, I gave him information to schedule appointment with Dr. Polanco at [facility] We discussed about decreasing salt consumption, go [...] witho ut rupture 12/09/2024 Assessment & Plan (05/18/2025 4:17 PM EDT): We discussed about optimizing BP control, continue aspirin and metoprolol. Losartan has been adjusted I gave them again information regarding vascular surgery referral for them to reschedule appointment With discussed extensively regarding acute and long-term complications of uncontrolled hypertension and potential for ruptured aneurysm Assessment & Plan (12/09/2024 4:53 PM EST): Discussed with pt and girlfriend, Tiffanie, to [...] this, may need to look for legal word processor at [employer] so they help him with his residency status etc. Severe depression (CMS/HCC) 08/05/2024 Assessment & Plan (02/16/2025 2:21 PM [...] trigger for his sxs. Pt moved from [place] two years ago hoping to have more job opportunities. Has a sister who is positive social support but lives in [place]. clinician provided a safe space for pt to share his emotions and concerns. Pt was previously connected with but lost appointment. He will reach out to progressive care manager and seek out for additional support regarding housing. Pt declines halfway resources at this time. Reviewed and assessed for risk, current stressors and protective factors using open-ended questions. Pt is currently on wait list for psychiatry services and OP therapy with [facility]. Assessment & Plan (09/10/2024 2:41 PM [...] previous BCG vaccination as a child in [place]. I do not think there is a need for INH prophylaxis We'll fu in 1y. Assessment & Plan (08/06/2024 4:02 PM EDT): Neg CXR, hx BCG No INH prophylaxis for now. Will ask ID re need for further w/u Essential hypertension 05/30/2024 Assessment & Plan (05/18/2025 4:35 PM EDT): Uncontrolled. Will refer to [facility] pharmacy program. Increase losartan to 100 mg/day and follow-up BP with RN in 2 weeks. Continue metoprolol same dose Follow up with the Nurse for blood pressure check in 2 weeks. Continue with a low sodium diet and regular exercise as tolerated. For BP < or = to 139/89 (or 129/79 for diabetic patients) continue current medication regimen and follow up with PCP in 8 weeks. For BP > or = to 140/90 (or 130/80 for diabetic patients) increase Metoprolol to 25 mg twice a day Follow up with the Nurse for a second blood pressure check in 2-4 weeks if BP 140-150/90+ (or 130-150/80+ for diabetic patients). Refer to [facility] for BP >150/90+. If second Nurse visit is needed: For BP < or = to 139/89 (or 129/79 for diabetic patients) continue current medication regimen and follow up with the PCP in 8 weeks. For BP > or = to 140/90 (or 130/80 for diabetic patients) increase Metoprolol Succinate to 50 mg twice a day if HR is above 60, otherwise, start chlorthalidone 12,5mg/day (half 25mg tablet) Follow up with the PCP in 4 weeks. Assessment & Plan (02/16/2025 2:20 PM EDT): [...] Encounters Date Type Department Care Team Description 08/13/2025 Orders Only [facility] MEDICINE [address] [place] [address] Marta Johnson MD 07/29/2025 Telephone [facility] MEDICINE [address] [place] [address] Marta Johnson MD Cardiology ref 07/29/2025 Telephone [facility] MEDICINE [address] [place] [address] Marta Johnson MD Vascular surgeon 07/29/2025 Telephone [facility] MEDICINE [address] [place] [place] [address] Marta Johnson MD CHART PREP 07/14/2025 2:00 PM EDT Telemedicine [facility] MEDICINE [address] [place] [address] Jonathan Rios, Dave Essential hypertension (Primary Dx) 07/01/2025 Refill [facility] OPTOMETRY [address] [place] [address] Haley Gamboa, OD Primary open angle glaucoma of both eyes, unspecified glaucoma stage 07/01/2025 Refill [facility] MEDICINE [address] [place] [address] Marta Johnson MD 06/30/2025 Refill [facility] MEDICINE [address] [place] [address] Marta Johnson MD 06/09/2025 Telephone [facility] MEDICINE [address] [place] [address] Patricia Santana RN [place] 06/02/2025 Refill [facility] OPTOMETRY [address] [place] [address] Haley Gamboa, OD Primary open angle glaucoma of both eyes, unspecified glaucoma stage 06/02/2025 Travel 05/19/2025 Telephone [facility] MEDICINE [address] [place] [address] Marta Johnson MD Referral 05/18/2025 2:15 PM EDT Office Visit [facility] MEDICINE [address] [place] [address] Marta Johnson MD Essential hypertension (Primary Dx); Chronic systolic congestive heart failure (CMS/HCC); Infrarenal abdominal aortic aneurysm (AAA) without rupture (CMS/HCC); Transportation insecurity due to lack of access to vehicle 05/18/2025 Travel 05/18/2025 Telephone [facility] MEDICINE [address] [place] [address] Marta Johnson MD No Show 05/15/2025 Telephone [facility] MEDICINE [address] [facility] [place] [address] Marta Johnson MD CHART PREP from Last 3 Months Immunizations Immunization Administration Dates Next Due Pneumococcal Conjugate PCV 20 06/02/2025 Tdap 06/02/2025 Social History Tobacco Use Types Packs/Day Years [...] Sign Reading Time Taken Comments Blood Pressure 133/101 07/14/2025 2:14 PM EDT [facility] (Televisit) Pulse 71 07/14/2025 2:14 PM EDT Temperature 36.6 C (97.8 F) 05/18/2025 3:34 PM EDT Respiratory Rate 16 05/18/2025 3:34 PM EDT Oxygen Saturation 97% 05/18/2025 3:3 4 PM EDT Inhaled Oxygen Concentration - - Weight 79.6 kg (175 lb 8 oz) 05/18/2025 3:34 PM EDT Height 174.1 cm (5' 8.56 ) 05/18/2025 3 :34 PM EDT Body Mass Index 26.25 05/18/2025 3:34 PM EDT Plan of Treatment Upcoming Encounters Date Type Department Care Team (Late st Contact Info) Description 08/20/2025 12:00 PM EST Office Visit [facility] MEDICINE [address] [place] [address] Marta Johnson MD [address] [place] [address] 09/14/2025 3:00 PM EST Office Visit [facility] [address] [place], [place] [phone] Haley Gamboa, OD [address] [place] [address] Health Maintenance Due Date Last Done Comments CT Colonography 1955 Colonoscopy 1955 Colorectal Cancer Screening 1955 Dental Oral Exam 1955 Dental Prophylaxis 1954 Dental X-Ray: Bitewings 1954 Dental X-Ray: Full Mouth 1954 FIT DNA/Cologuard 1954 FIT 1954 FOBT 1955 SDOH Screening 1955 Sigmoidoscopy 1955 Alcohol/Substance Use Screening 1966 Zoster Vaccines (1 of 2) 2004 RSV Patients and Patients Aged 60 years or older (1 - Risk 60-74 years 1-dose series) 2014 Depression Monitoring 03/10/2025 09/10/2024 , 09/10/2024 COVID-19 Vaccine (1 - 2023-2 5 season) 2025 Influenza Vaccine (#1) 2025 Tobacco Screening 06/08/2026 06/08/2025 Lipid Panel 07/04/2029 08/13/2025, 07/04/2024 DTaP/Tdap/Td Vaccines (2 - T d or Tdap) 06/02/2035 06/02/2025 Hepatitis C Screening Completed 02/16/2025 , 07/04/2024 Pneumococcal Vaccine: 50+ Years Completed 06/02/2025 HIB Vaccines Aged Out No longer eligi [...] Procedure Name Priority Date/Time Associated Diagnosis Comments LIPID PANEL, STANDARD Routine 08/13/2025 1:33 PM EDT HEPATIC FUNCTION PANEL Routine 08/13/2025 1:33 PM EDT HEPATITIS PANEL, GENERAL Routine 02/16/2025 3:10 PM EDT Syphilis in male from Last 3 Months or Most Recently Relevant to Health Maintenance Results * Hepatic Function Panel (08/13/2025 1:33 PM EDT) Bilirubin, Total 0.7 0.0 - 1.0 mg/dL [facility] Bilirubin, Direct 0.2 0.0 - 0.5 mg/dL [facility] Aspartate Amino Transferase 24 5 - 37 U/L [facility] Alanine Aminotransferase 17 0 - 40 U/L [facility] Total Protein 7.5 6.5 - 8.0 g/dL [facility] Albumin Level 4.0 3.5 - 5.0 g/dL [facility] Alkaline Phosphatase 87 39 - 117 U/L [facility] 08/13/2025 1:33 PM EDT 08/13/2025 4:07 PM EDT us Marta Johnson MD LAB BLOOD ORDERABLES Fin al Result [facility] [address] [place] [phone] * (ABNORMAL) Lipid Panel, Standard (08/13/2025 1:33 PM EDT) Triglycerides 160(H) <150 mg/dL [facility] Comment:Desirable Triglyceri de: less than 150 mg/dLBorderline High Triglyceride 150-199 mg/dLHigh Triglyceride: 200-499 mg/dLVery High Triglyceride: greater than or equal to 5OO mg/dL Cholesterol 248(H) <200 mg/dL [facility] Comment:Desirable Cholestero l: less than 200 mg/dLBorderline High Cholesterol: 200-239 mg/dLHigh Cholesterol: greater than 239 mg/dL LDL Cholesterol Calculated 169(H) <100 mg/dL [facility] Comment:Desirable LDL: less than 100 mg/dLNear Optimal/Above Optimal LDL: 110- 129 mg/dLBorderline High LDL: 130-159 mg/dLHigh LDL: 160-189 mg/dLVery High LDL: greater than or equal to 190 mg/dL HDL Cholesterol 47 >40 mg/dL [facility] Comment:Desirable HDL: great er than 40 mg/dL Note: This HDL assay may give artificially low results in patients with liver disease. 08/13/2025 1:33 PM EDT 08/13/2025 4:07 PM EDT us Marta Johnson MD LAB BLOOD ORDERABLES Fin al Result [facility] [address] [place] [phone] * Hepatitis Panel, General (02/16/2025 3:10 PM EDT) Hepatitis A IgM Nonreactive Nonreactive [facility] Comment:IgM antibodies to MEYER V not detected; does not exclude earlyacute or recovered HAV infection. ~Hepatitis B Surface Antibody REACTIVE Nonreactive [facility] Comment:REACTIVE: > 11.99 mI U/mL Hepatitis B Core Antibody Reactive Nonreactive [facility] Comment:Presumptive evidence of anti-HBc. Hepatitis C Antibody Nonreactive Nonreactive [facility] Comment:Antibodies to HCV no t detected; does not exclude early acuteHCV infection. Hepatitis B Surface Ag Negative Negative [facility] Blood 02/16/2025 3:10 PM EDT 02/16/2025 4:12 PM EDT Marta Johnson MD LAB BLOOD ORDERABLES Fin al Result [facility] [address] [place] [phone] from Last 3 Months or Most Recently Relevant to Health Maintenance Insurance [facility] FAM[facility] D[facility] MEDICAID STAND ADULT Care Teams Gis Scientist Relationship Specialty Start Date End Date Marta Johnson MD [address] [place] [phone] PCP - General Internal Medicine 06/27/24
--- OUTSIDE RECORDS SUMMARY | 2025-08-13 16:33 | XMS_ITS | Encounter Summary ---
Author Organization [employer] Address [address] [place] [address] 7 [place] [address] Care Team Providers Care Audience Development Manager Name Role Phone Marta Johnson MD Primary Care Provider + Encounter Details Date Type Department Care Team (Late Contact Info) Description 03/28/2024 Orders Only [facility] [address] [place] [address] Greer Chiang FNP [address] [place] [address] Social History Tobacco Use Types Packs/Day Years [...] Department Care Team (Late Contact Info) Description 08/20/2025 12:00 PM EST Office Visit [facility] MEDICINE [address] [place] [address] Marta Johnson MD [address] [place] [address] 09/14/2025 3:00 PM EST Office Visit [facility] OPTOMETRY [address] [place] [address] Haley Gamboa, OD [address] [place] [address] documented as of this encounter Visit Diagnoses Not on filedocumented in this encounter Care Teams Audience Development Manager Relationship Specialty Start Date End Date Marta Johnson MD [address] [place] [phone] PCP - General Internal Medicine 06/27/24 documented as of this encounter
--- OUTSIDE RECORDS SUMMARY | 2025-08-13 16:33 | XMS_ITS | Clinical Summary ---
Author Organization [facility] Address [address] [place] [address] Phone Care Team Providers Care Needle Maker Name Role Phone Marta Johnson MD Primary Care Provider Allergies No known active allergies Medications losartan [...] Encounters Date Type Department Care Team Description 07/29/2025 Telephone [facility] Cardiology [facility] [address] [facility] [address] [place] [address] Marta Johnson MD 07/28/2025 Telephone Vascular Surgery - [place] [address] [place] [address] Yasir Rodriguez MA 05/21/2025 Telephone [facility] Cardiology [place] [address] [place] [address] Marta Johnson MD from Last 3 Months Medical History Medical History Date Comments Hypertension Social History Tobacco Use Types Packs/Day Years Used Date Smoking Tobacco: Every Day Cigarettes Tobacco Cessation:Ready to Q uit: Not Asked; Counseling Given: Not Answered Interpersonal Safety Answer Date Record ed Physical Abuse Unrecognized value 11/16/2024 Verbal Abuse Unrecognized value 11/16/2024 Sex and Gender Information Value Date [...] 91 11/17/2024 5:00 PM EST Temperature 36.2 C (97.2 F) 11/17/2024 5:00 PM EST Respiratory Rate 19 11/17/2024 5:00 PM EST Oxygen Saturation 94% 11/17/2024 5:00 PM EST Inhaled Oxygen Concentration - - Weight 81.2 kg (179 lb 0.2 oz) 11/17/2024 2:14 P M EST Height 185.4 cm (6' 0.99 ) 11/17/2024 2:14 PM ES T Body Mass Index 23.62 11/17/2024 2:14 PM EST Plan of Treatment Health Maintenance Due Date Last Done Comments Colorectal Cancer Screening: Colonoscopy 1954 DTaP,Tdap,and Td Vaccines (1 - Tdap) 1973 Pneumococcal Vaccine: 50+ Years (1 of 2 - PCV) 1973 RSV Immunization Adult Patients (1 - Risk 50-74 years 1-dose series) 2004 Zoster Vaccines (1 of 2) 2004 Depression Screening 10/15/2024 Cholesterol Screening (Lipid Panel) 11/16/2024 Hepatitis C Screening 11/16/2024 Social Influencers of Health Screening 11/16/2024 COVID-19 Vaccine (1 - 2023-2 5 season) 2025 Influenza Vaccine (#1) 2025 Falls Risk Assessment 11/17/2025 11/17/2024 Hypertension/CHF/CAD Annual BMP Blood Test 02/16/2026 02/16/2025, 11/17/2024, 11/16/2024 HIB Vaccines Aged Out No [...] mmol/L LAB CHEMISTRY METHOD 11/17/2024 8:19 AM [facility] Potassium 4.0 3.5 - 5.5 mmol/L LAB CHEMISTRY METHOD 11/17/2024 8:19 AM [facility] Chloride 102 96 - 110 mmol/L LAB CHEMISTRY METHOD 11/17/2024 8:19 AM [facility] CO2 29 21 - 32 mmol/L LAB CHEMISTRY METHOD 11/17/2024 8:19 AM [facility] Anion Gap 4 3 - 11 LAB CHEMISTRY METHOD 11/17/2024 8:19 AM [facility] Glucose 102(H) 70 - 100 mg/dL LAB CHEMISTRY METHOD 11/17/2024 8:19 AM [facility] BUN 13 5 - 25 mg/dL LAB CHEMISTRY METHOD 11/17/2024 8:19 AM [facility] Creatinine 0.84 0.70 - 1.30 mg/dL LAB CHEMISTRY METHOD 11/17/2024 8:19 AM EST [facility] eGFR 94 >=60 mL/min/1. 73m2 LAB CHEMISTRY METHOD 11/17/2024 8:19 AM EST [facility] Comment:Calculation based on the Chronic Kidney Disease Epidemiology Collaboration (CKD-EPI) equation refit without adjustment for race. BUN/Creatinine Ratio 15.5 LAB CHEMISTRY METHOD 11/17/2024 8:19 AM EST [facility] Calcium 9.3 8.5 - 10.5 mg/dL LAB CHEMISTRY METHOD 11/17/2024 8:19 AM EST [facility] Blood Venous blood specimen / Unknown Venipuncture / Unknown 11/17/2024 6:17 AM EST 11/17/2024 7:05 AM EST us Ivy Calvin MD LAB BLOOD ORDERABLES Final Res ult [facility] [address] [place] [address], from Last 3 Months or Most Recently [...] currently active code status orders. Care Teams Needle Maker Relationship Specialty Start Date End Date Marta Johnson MD [address] [place] [phone] PCP - General Internal Medicine 11/17/24
--- OUTSIDE RECORDS SUMMARY | 2025-08-13 16:33 | XMS_ITS | Encounter Summary ---
Author Organization [employer] Address [address] [place] [address] 7 [place] [address] Care Team Providers Care Senior Corporate Accountant Name Role Phone Marta Johnson MD Primary Care Provider + Reason for Visit * Reason Comments Med Refill Encounter Details Date Type Department Care Team (Late Contact Info) Description 07/01/2025 Refill [facility] MEDICINE [address] [place] [address] [phone] Marta Johnson MD [address] [place], [place] [phone] Social History Tobacco Use Types Packs/Day Years [...] Description 08/20/2025 12:00 PM EST Office Visit [facility] MEDICINE [address] [place] [address] [phone] Marta Johnson MD [address] [place] [address] 09/14/2025 3:00 PM EST Office Visit [facility] OPTOMETRY [address] [place], [place] [phone] Haley Gamboa, OD [address] [place] [address] documented as of this encounter Visit Diagnoses Not on filedocumented in this encounter Additional Health Concerns Assessment Noted Time PHQ-9 Depression Total Score: 18 09/10/ 024 3:07 PM EST documented as of this encounter Care Teams Senior Corporate Accountant Relationship Specialty Start Date End Date Marta Johnson MD [address] [place], [place] [phone] PCP - General Internal Medicine 06/27/24 documented as of this encounter
--- OUTSIDE RECORDS SUMMARY | 2025-08-13 16:33 | XMS_ITS | Encounter Summary ---
Author Organization [employer] Address [address] [place] [address] 7 [place] [address] Care Team Providers Care Campaign Specialist Name Role Phone Marta Johnson MD Primary Care Provider + Encounter Details Date Type Department Care Team (Late st Contact Info) Description 07/04/2024 Orders Only [facility] MEDICINE [address] [place], [place] [phone] Marta Johnson MD [address] [place], [place] [phone] Positive TB test (Primary Dx) Social History [...] Pos TPA, Awaiting to hear from [facility] re previous rx. * Result Encounter [...] Description 08/20/2025 12:00 PM EST Office Visit [facility] MEDICINE [address] [place] [address] Marta Johnson MD [address] [place] [address] 09/14/2025 3:00 PM EST Office Visit [facility] OPTOMETRY [address] [place] [address] Tarka, Haley, OD [address] [place] [address] documented as of this encounter Procedures Procedure [...] PM EDT Narrative 07/17/2024 3:05 PM EDT [facility] [address] [place] [address] XRay Report Signed Patient: Meet Rebolledo MR#: [id number] : 1955 Acct:[id number] Age/Sex: 69 / M ADM Date: 07/17/24 [facility] Att[facility] Dr: Marta Johnson MD Ordering Physician: Marta Johnson MD Date of Service: 07/17/24 Procedure(s): XR chest 2V Accession Number(s): [id number] cc: Marta Johnson MD EXAMINATION: XR CHEST [...] 07/17/24 1502 DD/ 1346 TD/TT: 07/17/24 1358 Lining Stitcher: SS Procedure Note Donotuseinterpreter, Image - 07/17/[address] [address] XRay Report Signed Patient: Anurag Rebolledo#: M [id number] : 1955cct:[id number] Age/Sex: 69 / MADM Date: 07/17/24 [facility] Att[facility] Dr: Marta Johnson MD Ordering Physician: Marta Johnson MD Date of Service: 07/17/24 Procedure(s): XR chest 2V Accession Number(s): [id number] cc: Marta Johnson MD EXAMINATION: XR CHEST [...] 07/17/24 1502 DD/ 1346 TD/TT: 07/17/24 1358 Lining Stitcher: SS us Marta Johnson MD IMG XR PROCEDURES Final Result * (ABNORMAL) Confirmatory Syphilis Profile (07/04/2024 1:00 PM EDT) Rapid Plasma Reagin, Quant Reactive 1:2(A) Nonreactive [facility] Treponema pallidum Antibody, Particle Agglutination Reactive(A) Nonreactive [facility] 07/04/2024 1:00 PM EDT 07/04/2024 6:13 PM EDT us Marta Johnson MD LAB BLOOD ORDERABLES Fin al Result [facility] [address] [place] [phone] documented in this encounter Visit Diagnoses Diagnosis Positive TB test- Primary documented in this encounter Additional Health Concerns Assessment Noted Time PHQ-9 Depression Total Score: 5 05/30/20 1:30 PM EDT documented as of this encounter Care Teams Campaign Specialist Relationship Specialty Start Date End Date Marta Johnson MD [address] [place] [phone] PCP - General Internal Medicine 06/27/24 documented as of this encounter
--- OUTSIDE RECORDS SUMMARY | 2025-08-13 16:33 | XMS_ITS | Encounter Summary ---
Author Organization [employer] Address [address] [place] [address] 7 [place] [address] Care Team Providers Care Odd Shoe Examiner Name Role Phone Marta Johnson MD Primary Care Provider + Reason for Visit * Reason Comments Med Refill Encounter Details Date Type Department Care Team (Late Contact Info) Description 03/26/2025 Refill [facility] OPTOMETRY [address] [place] [address] TarkaHaley, OD [address] [place] [address] Primary open angle glaucoma of both eyes, unspecified glaucoma stage Social History Tobacco Use Types Packs/Day Years [...] Description 08/20/2025 12:00 PM EST Office Visit [facility] MEDICINE [address] [place] [address] Marta Johnson MD [address] [place], [place] [phone] 09/14/2025 3:00 PM EST Office Visit [facility] OPTOMETRY [address] [place], [place] [phone] Haley Gamboa, OD [address] [place], [place] [phone] documented as of this encounter Visit Diagnoses Diagnosis Primary open angle glaucoma of both eyes, unspecified glaucoma stage documented in this encounter Additional Health Concerns Assessment Noted Time PHQ-9 Depression Total Score: 18 09/10/ 024 3:07 PM EST documented as of this encounter Care Teams Odd Shoe Examiner Relationship Specialty Start Date End Date Marta Johnson MD [address] [place], [place] [phone] PCP - General Internal Medicine 06/27/24 documented as of this encounter
== END 2025-08-13 13:29 | disposition home or self-care (01) ==
LOC: HO.HHCL 13:28
PROVIDERS: PCP Internal Medicine; Visit Provider Internal Medicine
DX: I10 Essential (primary) hypertension (principal)
CPT/HCPCS: 36415; 80061; 80076